=== PATIENT | female | born 1985 | race Caucasian/White ===

== ENCOUNTER 2025-01-01 05:52 | Day surgery (SDC) | payer BC, SELFPAY ==
--- NOTE | 2024-12-30 09:54 | PCM.HP.BLA ---
History and Physical Date of Admission: 01/01/25 HPI: The patient is a 39 year old female presenting for pre-operative visit. She is scheduled for hysteroscopy with endometrial ablationn for menorrhagia and dysmenorrhea, on 01/01/25. Procedure discussed along with risks, benefits and complications. Other alternatives discussed for management. Consent form signed? Yes. ? ? PAST MEDICAL HISTORY PAST MEDICAL HISTORYDiagnosisDate?Anemia??WITH 1ST ?Antiphospholipid antibody syndrome (HCC)??no official syndrome but mildly elevated levels?[id number]?anxiety/depression?Fibroadenosis of breast??Insertion of IUD108/02/08?mirena?Mental disorder??Placental abruption, antepartum (HCC)10/28/2013?Varicella without mention of [id number]?Chickenpox ? ? PAST SURGICAL HISTORY PAST SURGICAL HISTORYProcedureLateralityDate?BREAST BIOPSY?05/2005?FIBROADENOMA? DELIVERY ONLY?2015?stat for abruption?D&C (MISSED AB 1ST TRIMESTER)?2013?IUD INSERTION (DOCUMENT MANAGEMENT ANALYST DEPT)_*FL?06/01/09?mirena AND REMOVAL?LAPAROSCOPIC TUBAL LIGATION/RING/CLIP?03/22/16?tubal w/ filshie clips ? ? ? CURRENT MEDICATIONS Current Outpatient MedicationsMedicationSigDispenseRefill?Norethindrn A-E Estradiol-Iron (BLISOVI 24 FE) 1 mg-20 mcg (24)/75 mg (4)Take 1 tablet by mouth once daily.84 tablet4?COMPOUNDED PRESCRIPTIONWomen's one a day multivitamin???No current facility-administered medications for this visit. ? ? ALLERGIES: Patient has no known allergies. ? PERSONAL HISTORY: SOCIAL HISTORY Social History?Tobacco Use?Smoking status:Former??Current packs/day:0.00??Average packs/day:0.5 packs/day for 2.0 years (1.0 ttl pk-yrs)??Types:Cigarettes??Start date:05/28/2003??Quit date:05/28/2005??Years since quittin.5?Smokeless tobacco:NeverVaping Use?Vaping status:Never UsedSubstance Use Topics?Alcohol use:No?Drug use:No ? FAMILY HISTORY: FAMILY HISTORYExpand by Default FAMILY HISTORY ProblemRelationAge of Onset?AsthmaMother??Cervical CancerMother??HypertensionMother??OsteoporosisMother??PsychiatryMother?? DEPRESSION?StrokeMother??DementiaMother??ArthritisFather??PsychiatryFather?? DEPRESSION?AsthmaSister??ArthritisMaternal Grandmother??HypertensionMaternal Grandmother??StrokeMaternal Grandmother??ThyroidMaternal Grandmother??Colon CancerPaternal Grandmother??other (multiple mylomia)Paternal Grandmother??HypothyroidismPaternal Grandmother??Colon CancerPaternal Grandfather??HeartPaternal Grandfather?? [place]?HypertensionPaternal Grandfather??other (hypothyroidism)Daughter??AsthmaMaternal Aunt??Alzheimer's DiseaseOther?? MGGM ? ? REVIEW OF SYMPTOMS: GENERAL: denies fevers or chills ENDOCRINOLOGY: has not been on steroids Cardiology : denies palpitations or chest pain Respiratory: denies SOB or cough Hematology: denies history of prolonged bleeding or easy bruising or VTE Allergy: Denies history of personal or family history of allergy to anesthesia ? PHYSICAL EXAMINATION: ? VITALS: Blood pressure 114/62, pulse 74, height 170.2 cm (5' 7), weight 67.1 kg (148 lb), last menstrual period 08/24/2024, SpO2 99%. ? GENERAL: The patient is well nourished, well hydrated in no acute distress. , The patient is oriented to time, place, and person. NECK: Supple. No lynphadenopathy, normal thyroid, no thyromegaly. LUNGS: Clear to auscultation bilaterally. no wheezes, rhonchi or rales HEART: Regular rate and rhythm, Normal heart sounds, and No murmurs or gallops ? IMPRESSION: menorrhagia w/ irreg cycle and dysmenorrhea ? PLAN: The risks/benefits/alternatives and personal involved for the planned hysteroscopy with endometrial ablation were reviewed with the patient. Her questions were answered to her satisfaction and she desires to proceed. Consent was signed. I reviewed with her postop instructions and expectations. ? ? I have reviewed and updated past medical and surgical history, medications and allergies Marycruz Wild M.D. Assessment & Plan Assessment/Plan (1) Menorrhagia: QUALIFIERS: Menorrhagia type: with regular cycle Qualified Code(s): N92.0 - Excessive and frequent menstruation with regular cycle (2) Dysmenorrhea:
[2025-01-01] VITALS (9 sets, daily range): BP systolic 111–125; BP diastolic 68–85; PULSE 67–84; RESP 16; TEMP 36.2–36.6; O2SAT 99–100; BMI 23.4
--- OUTSIDE RECORDS SUMMARY | 2025-01-01 05:58 | XMS RPT_ITS | CCD ---
Author Organization [facility] Care Team Providers Care Global Technical Writer Name Role Phone [facility] Unavailable Unavaila ble KIKE, [facility] Unavailable Unavaila ble KIKE, [facility] Unavailable Unavaila ble Carol JENSEN, Sarmad Primary Care Provider [phone] Carol JENSEN, Sarmad Primary Care Provider Carol JENSEN, Sarmad Primary Care Provider Carol JENSEN, Sarmad Primary Care Provider Naomi Edwards PA-C Unavailable Older BEHAVIORAL SCIENCE CHAIR.Angela DAVILA Unavailable Zoey Orellana PA-C Unavailable [phone] SELF Referring Unavailable GANTA, SARMAD Primary Care Unavailable BACILIO MIRANDA Referring Unavailable GANTA, SARMAD Primary Care Unavailable BACILIO MIRANDA Referring Unavailable GANTA, SARMAD Primary Care Unavailable HEENA JEWELL Attending Unavailable GANTA, SARMAD Primary Care Unavailable BACILIO MIRANDA Attending Unavailable GANTA, SARMAD Primary Care Unavailable BACILIO MIRANDA Attending Unavailable ANGELA CHAU Attending Unavailable GANTA, SARMAD Primary Care Unavailable ANGELA CHAU Referring Unavailable GANTA, SARMAD Primary Care Unavailable GANTA, SARMAD Primary Care Unavailable HOLLI MIRANDACA Pam Attending Unavailable RUTH BACILIO L Referring Unavailable GANTA, SARMAD Primary Care Unavailable Ruth Bacilio Referring Unavailable Bacilio Miranda Attending Unavailable Ganta, Sarmad Primary Care Unavailable Medications Current Medications Medication Drug Class(es) Dates Sig (Normalized) Sig (Original) amoxicillin 875 mg / clavulanate 125 mg oral tablet (2 sources) Penicillin-class Antibacterial Start: 09-20-2024 End: 09-25-2024 take 1 tablet by mouth twice daily amoxicillin-clav ulanate potassium (AUGMENTIN) 875-125 mg per tablet Take 1 tablet by mouth two times a day for 5 days. 10 tablet 09/20/2024 09/25/2024 Active Start: 09-03-2023 End: 09-10-2023 take 1 tablet by mouth twice daily amoxicillin-clavulanate potassium (AUGMENTIN) 875-125 mg per tablet Indications: Fever, unspecified fever cause , Viral URI with cough Take 1 tablet by mouth two times a day for 7 days. 14 tablet 0 09/03/2023 09/10/2023 Active Comment on above: Take 1 tablet by nereida two times a day for 7 days. benzonatate 100 mg oral capsule (1 source) Non-narcotic Antitussive Start: 09-17-19 End: 09-27-19 take 2 capsules by mouth every eight hours as needed benzonatate (TESSALON PERLE) 100 mg capsule Take 2 capsules by mouth three times daily as needed for up to 10 days. 60 capsule 0 09/16/2021 09/26/2021 Active Comment on above: Take 2 capsules by [facility] three times daily as needed for up to 10 days. COMPOUNDED PRESCRIPTION (20 sources) Start: 07-15-19 18 COMPOUNDED PRESCRIPTION Women's one a day multivitamin 07/15/2017 Active Start: 07-15-2017 COMPOUNDED PRE SCRIPTION Women's one a day multivitamin 0 07/15/2017 Active Comment on above: Women's one a day mu ltivitamin Ethinyl Estradiol / Ferrous fumarate / Norethindrone (20 sources) Estrogen Start: take 1 tablet by mouth once daily Norethindrn A-E Estradiol-Iron (BLISOVI 24 FE) 1 mg-20 mcg (24)/75 mg (4) Take 1 tablet by mouth once daily. 84 tablet 4 09/10/2024 Active Start: 07-09-2024 End: 09-10-2024 take 1 tablet by mouth once daily Norethindrn A-E Estradiol-Iron (BLISOVI 24 FE) 1 mg-20 mcg (24)/75 mg (4) Take 1 tablet by mouth once daily. 84 tablet 2 07/09/2024 09/10/2024 Discontinued Start: 07-09-2024 take 1 tablet by nereida th once daily Norethindrn A-E Estradiol-Iron (BLISOVI 24 FE) 1 mg-20 mcg (24)/75 mg (4) Take 1 tablet by mouth once daily. 84 tablet 2 07/09/2024 Active Start: 04-08-2024 End: 07-09-2024 take 1 tablet by mouth once daily Norethindrn A-E Estradiol-Iron (BLISOVI 24 FE) 1 mg-20 mcg (24)/75 mg (4) Take 1 tablet by mouth once daily. 84 tablet 04/08/2024 07/09/2024 Discontinued Start: 04-08-2024 take 1 tablet by nereida th once daily Norethindrn A-E Estradiol-Iron (BLISOVI 24 FE) 1 mg-20 mcg (24)/75 mg (4) Take 1 tablet by mouth once daily. 84 tablet 04/08/2024 Active Start: 02-11-2023 End: 04-08-2024 take 1 tablet by mouth once daily Norethindrn A-E Estradiol-Iron (BLISOVI 24 FE) 1 mg-20 mcg (24)/75 mg (4) Take 1 tablet by mouth once daily. 84 tablet 4 02/11/2023 04/08/2024 Discontinued Start: 02-11-2023 take 1 tablet by nereida th once daily Norethindrn A-E Estradiol-Iron (BLISOVI 24 FE) 1 mg-20 mcg (24)/75 mg (4) Take 1 tablet by mouth once daily. 84 tablet 4 02/11/2023 Active Start: 09-19-2022 End: 02-11-2023 take 1 tablet by mouth once daily Norethindrn A-E Estradiol-Iron (BLISOVI 24 FE) 1 mg-20 mcg (24)/75 mg (4) Take 1 tablet by mouth once daily. 28 tablet 3 09/19/2022 02/11/2023 Discontinued Start: 09-19-2022 take 1 tablet by nereida th once daily Norethindrn A-E Estradiol-Iron (BLISOVI 24 FE) 1 mg-20 mcg (24)/75 mg (4) Take 1 tablet by mouth once daily. 28 tablet 3 09/19/2022 Active Start: 05-25-2022 End: 09-18-2022 take 1 tablet by mouth once daily Norethindrn A-E Estradiol-Iron (BLISOVI 24 FE) 1 mg-20 mcg (24)/75 mg (4) Take 1 tablet by mouth once daily. 28 tablet 1 05/25/2022 09/18/2022 Discontinued Start: 04-27-2022 take 1 tablet by nereida th once daily Norethindrn A-E Estradiol-Iron (BLISOVI 24 FE) 1 mg-20 mcg (24)/75 mg (4) Take 1 tablet by mouth once daily. 28 tablet 1 04/27/2022 Active Start: 02-08-2022 End: 04-26-2022 take 1 tablet by mouth once daily Norethindrn A-E Estradiol-Iron (BLISOVI 24 FE) 1 mg-20 mcg (24)/75 mg (4) Take 1 tablet by mouth once daily. 28 tablet 1 02/08/2022 04/26/2022 Discontinued Start: 02-08-2022 take 1 tablet by nereida th once daily Norethindrn A-E Estradiol-Iron (BLISOVI 24 FE) 1 mg-20 mcg (24)/75 mg (4) Take 1 tablet by mouth once daily. 28 tablet 1 02/08/2022 Active Start: 12-26-2021 End: 02-08-2022 take 1 tablet by mouth once daily Norethindrn A-E Estradiol-Iron (BLISOVI 24 FE) 1 mg-20 mcg (24)/75 mg (4) Take 1 tablet by mouth once daily. 28 tablet 1 12/26/2021 02/08/2022 Discontinued Start: 12-26-2021 take 1 tablet by nereida th once daily Norethindrn A-E Estradiol-Iron (BLISOVI 24 FE) 1 mg-20 mcg (24)/75 mg (4) Take 1 tablet by mouth once daily. 28 tablet 1 12/26/2021 Active Start: 12-30-2020 End: 12-23-2021 take 1 tablet by mouth once daily Norethindrn A-E Estradiol-Iron (BLISOVI 24 FE) 1 mg-20 mcg (24)/75 mg (4) Take 1 tablet by mouth once daily. 1 Package 11 12/30/2020 12/23/2021 Discontinued Start: 12-30-2020 take 1 tablet by nereida th once daily Norethindrn A-E Estradiol-Iron (BLISOVI 24 FE) 1 mg-20 mcg (24)/75 mg (4) Take 1 tablet by mouth once daily. 1 Package 11 12/30/2020 Active Comment on above: Take 1 tablet by nereida th once daily. predniSONE 20 mg oral tablet (3 sources) Start: 09-03-2023 End: 09-08-2023 take 2 tablets by mouth once daily predniSONE (DELTASONE) 20 mg tablet Indications: Fever, unspecified fever cause , Viral URI with cough Take 2 tablets by mouth once daily for 5 days. 10 tablet 0 09/03/2023 09/08/2023 Active Start: 09-16-2021 End: 09-20-2021 take 1 tablet by mouth once daily at mealtime predniSONE (DELTASONE) 20 mg tablet Indications: Post-viral cough syndrome Take 1 tablet by mouth once daily for 4 days. Take daily with food. 4 tablet 0 09/16/2021 09/20/2021 Active Start: 04-11-2021 End: 04-20-2021 predniSONE (DELTASONE) 10 mg tablet Take 4 tabs daily for 3 days, then 2 tabs daily for 3 days, then 1 tab daily for 3 days with food. 21 tablet 04/11/2021 04/20/2021 Comment on above: Take 1 tablet by nereida th once daily for 4 days. Take daily with food. Take 2 tablets by [facility] once daily for 5 days. Completed/Discontinued Medications Medication Drug Class(es) Dates Sig (Normalized) Sig (Original) PARoxetine hydrochloride 10 mg oral tablet (4 sources) Serotonin Reuptake Inhibitor Start: 04-04-2022 End: 02-11-2023 take 1 tablet by mouth once daily PARoxetine (PAXIL) 10 mg tablet Indications: Depression, unspecified depression type , Anxiety Take 1 tablet by mouth once daily. 30 tablet 5 04/04/2022 02/11/2023 Discontinued (Other) Comment on above: Take 1 tablet by nereida th once daily. Problems Active Problems Problem Classification Problem Date Documented Date Episodic/Chronic Anxiety disorders (1 source) Anxiety; Translations: [Anxiety disorder, unspecified] Chronic Coagulation and hemorrhagic disorders (20 sources) Platelet count below reference range; Translations: [Thrombocytopenia, unspecified] Onset: 06-21-2015 Resolved: 09-05-2015 06-19-2021 Chronic Contraceptive and procreative management (1 source) Oral contraception; Translations: [Encounter for surveillance of contraceptive pills] 02-11-2023 Episodic Fever of unknown origin (1 source) Fever; Translations: [Fever, unspecified] 09-03-2023 Episodic Immunizations and screening for infectious disease (8 sources) Patient encounter status; Translations: [Encounter for screening for human papillomavirus (HPV)] Episodic Menstrual disorders (4 sources) Excessive and frequent menstruation with irregular cycle; Translations: [Dysmenorrhea, unspecified] Onset: 11-13-2024 12-23-2024 Chronic Mood disorders (1 source) Depressive disorder; Translations: [Depression, unspecified depression type] Chronic Nutritional deficiencies (2 sources) Vitamin D deficiency; Translations: [Vitamin D deficiency, unspecified] Onset: 03-12-2024 03-12-2024 Chronic Other female genital disorders (4 sources) Abnormal uterine bleeding; Translations: [Abnormal uterine and vaginal bleeding, unspecified] 09-10-2024 Chronic Other female genital disorders (1 source) Abnormal uterine and vaginal bleeding, unspecified; Translations: [Abnormal uterine bleeding (AUB)] Onset: 10-15-2024 Chronic Other hematologic conditions (1 source) History of immune thrombocytopenia; Translations: [Personal history of diseases of the blood and blood-forming organs and certain disorders involving the immune mechanism] Episodic Other lower respiratory disease (2 sources) Cough; Translations: [Cough] Episodic Other lower respiratory disease (1 source) Postviral cough; Translations: [Post-viral cough syndrome] Episodic Other non-traumatic joint disorders (1 source) Pain of right wrist; Translations: [Pain in right wrist] 04-11-2021 Episodic Other nutritional; endocrine; and metabolic disorders (1 source) Weight gain; Translations: [Abnormal weight gain] 03-12-2024 Episodic Other nutritional; endocrine; and metabolic disorders (1 source) History of iron deficiency; Translations: [Personal history of other endocrine, nutritional and metabolic disease] 03-12-2024 Episodic Other upper respiratory infections (1 source) Bacterial sinusitis; Translations: [Chronic sinusitis, unspecified] 09-20-2024 Chronic Other upper respiratory infections (3 sources) Sore throat symptom; Translations: [Acute pharyngitis, unspecified] Episodic Residual codes; unclassified (1 source) Intolerant of cold; Translations: [Other general symptoms and signs] 03-12-2024 Episodic Viral infection (2 sources) Viral disease; Translations: [Viral infection, unspecified] Episodic Past or Other Problems Problem Classification Problem Date Documented Date Episodic/Chronic Cardiac and circulatory congenital anomalies (12 sources) Single umbilical artery; Translations: [Congenital absence and hypoplasia of umbilical artery] Onset: 10-11-2015 Resolved: 01-05-2016 01-05-2016 Chronic Deficiency and other anemia (20 sources) Anemia; Translations: [Anemia, unspecified] Onset: 07-18-2015 07-18-2015 Episodic Deficiency and other anemia (20 sources) Iron deficiency anemia; Translations: [Iron deficiency anemia, unspecified] Onset: 04-03-2016 04-03-2016 Episodic Hemorrhage during ; abruptio placenta; placenta previa (20 sources) Threatened miscarriage; Translations: [Threatened ] Onset: 09-17-2005 Resolved: 01-05-2016 01-02-2024 Episodic Malaise and fatigue (2 sources) Fatigue; Translations: [Other fatigue] Onset: 03-12-2024 03-12-2024 Episodic Nausea and vomiting (12 sources) Nausea and vomiting; Translations: [Nausea with vomiting, unspecified] Onset: 08-17-2013 Resolved: 01-15-2014 06-19-2021 Episodic Other complications of (12 sources) Anemia complicating , unspecified trimester; Translations: [Anemia of mother, antepartum condition or complication] Onset: 03-02-2006 Resolved: 05-01-2006 01-02-2024 Chronic Other complications of (20 sources) Rubella non-immune; Translations: [Supervision of other high risk pregnancies, unspecified trimester] Onset: 08-18-2013 Resolved: 01-05-2016 08-20-2014 Episodic Other complications of (12 sources) Thrombocytopenic disorder; Translations: [Other diseases of the blood and blood-forming organs and certain disorders involving the immune mechanism complicating , unspecified trimester] Onset: 08-19-2013 Resolved: 01-15-2014 06-19-2021 Episodic Other complications of (12 sources) High risk ; Translations: [Supervision of other high risk pregnancies, first trimester] Onset: 06-03-2015 Resolved: 01-05-2016 01-05-2016 Episodic Other complications of (12 sources) Vomiting of , unspecified; Translations: [Unspecified vomiting of , unspecified as to episode of care or not applicable] Onset: 06-03-2015 Resolved: 09-05-2015 09-05-2015 Episodic Other complications of (12 sources) A/N care: poor obstetric history; Translations: [Supervision of with other poor reproductive or obstetric history, unspecified trimester] Onset: 06-03-2015 Resolved: 01-05-2016 06-19-2021 Episodic Other complications of (12 sources) Benign gestational thrombocytopenia; Translations: [Other diseases of the blood and blood-forming organs and certain disorders involving the immune mechanism complicating , unspecified trimester] Onset: 02-16-2016 Resolved: 03-30-2016 03-30-2016 Episodic Other nutritional; endocrine; and metabolic disorders (1 source) Personal history of other endocrine, nutritional and metabolic disease; Translations: [History of iron deficiency] Onset: 03-12-2024 Episodic Other nutritional; endocrine; and metabolic disorders (1 source) Abnormal weight gain; Translations: [Weight gain] Onset: 03-12-2024 Episodic Other and delivery including normal (12 sources) Normal ; Translations: [Encounter for supervision of other normal , unspecified trimester] Onset: 10-21-2008 Resolved: 05-04-2009 05-04-2009 Episodic Other screening for suspected conditions (not mental disorders or infectious disease) (1 source) Encounter for screening mammogram for malignant neoplasm of breast; Translations: [Encounter for screening mammogram for breast cancer] Onset: 09-16-2024 Episodic Residual codes; unclassified (1 source) Other general symptoms and signs; Translations: [Cold intolerance] Onset: 03-12-2024 Episodic Screening and history of mental health and substance abuse codes (12 sources) H/O: depression; Translations: [Personal history of other mental and behavioral disorders] Onset: 08-17-2013 Resolved: 08-20-2014 06-19-2021 Episodic Unclassified (4 sources) Patient encounter status 09-10-2024 Results Test Name Value Interpretation Reference Range Facility [facility] 11-05-2024 CNOV Office Visit (OBGYWM ) NAOMI ELDER ([id number]) 1985 F Date Time Provider Department 11/05/24 10:10 AM HEENA JEWELL OBGYWM During your visit today, we recorded the following information about you: Blood pressure Weight 108/62 67.1 kg Heena Jewell MD 11/05/2024 10:30 AM Signed Naomi is a 39 year old who presents today for an endometrial biopsy for abnormal uterine bleeding. test: negative UNIVERSAL PROTOCOL / SAFETY CHECKLIST Procedure to be Performed: EMB Sign In: A Moment of CARE was completed. Appropriate PPE (Personal Protective Equipment) worn by all providers involved with the procedure. Special equipment not required. Patient/Surrogate Stated/Verified: Patient name, Date of , Relevant allergies, and The intended procedure Time Out: Relevant labs, photos, and/or imaging studies have been reviewed. Intended patient and procedure match the source document(s) (e.g. consent, HANDP, associated studies [imaging, pathology]) match the intended patient and procedure. Consent obtained and matches the intended procedure. Yes. Correct side/site is not applicable. Medications required for this procedure are verified. are not applicable. Fire risk assessed and is not applicable. Implants: are not applicable. Sign Out: Specimens are all correctly labeled and sent. All instruments, equipment, possible retained foreign bodies are accounted for. Yes. The post-procedure plan of care has been communicated to the patient or surrogate. PROCEDURE: EXTERNAL GENITALIA: Normal in appearance without lesions VAGINA: Normal in appearance without lesions BIOPSY: Speculum placed into the vagina with excellent visualization of the cervix. Cervix cleaned with betadine. Anterior lip of cervix grasped with single toothed tenaculum. Uterus sounded to 8 cm. Pipelle inserted into the uterus without difficulty and endometrial biopsy obtained. Specimen labeled and sent to pathology. Hemostasis achieved. Procedure Summary: Patient tolerated procedure well. ASSESSMENT: abnormal uterine bleeding PLAN: Specimens labeled and sent to Pathology. Will notify patient of results in 1-2 weeks. Post-procedure instructions reviewed and written material given to the patient. MD Yuni Juárez Tab[place], MA 11/05/2024 10:05 AM Signed YOUR RECOVERY After your biopsy you may have: Vaginal bleeding (less than a normal menstrual period) Mild cramping Do NOT put anything in the vagina for 1 week after your endometrial biopsy. This includes: tampons douches and refraining from having sexual intercourse If you have any discomfort, you may take an over the counter pain medication (motrin, advil, ibuprofen, tylenol, etc). If this does not relieve your discomfort, contact the office. It is okay to wear a sanitary pad until the discharge and spotting stops. RISKS Although problems seldom occur with endometrial biopsies, there can be some complications. You may feel faint during and shortly after the procedure as well as have some bleeding after the procedure. There is also a risk of infection after the procedure. These complications are rare and can be easily treated. You should contact you doctor is you have any of the following: Heavy bleeding (more than your normal period) Bleeding with clots Severe abdominal pain Fever (more than 100.4F) Foul smelling vaginal discharge RESULTS We will have the results of your biopsy in 1-2 weeks. If you do not hear the results of your biopsy after 2 weeks, please contact the office for the results. If you have any additional questions or concerns please do not hesitate to contact the office. Referring Provider: BACILIO MIRANDA [[id number]] Allergies As of Date: 11/05/2024 (No Known Allergies) Date Reviewed: 09/20/2024 Reviewed by: Mary Babin MA - Fully Assessed Primary Visit Diagnosis:Abnormal uterine bleeding (AUB) [N93.9] Order(s):UA DIP,URINE HCG (POC) [6197025] Order #: [id number]. #:[id number] [ZGC1510] Order #: [id number]. #:[id number] Prescriptions as of 11/05/2024 - Norethindrn A-E Estradiol-Iron (BLISOVI 24 FE) 1 mg-20 mcg (24)/75 mg (4) Take 1 tablet by mouth once daily. - COMPOUNDED PRESCRIPTION Women's one a day multivitamin Problem List As Of Date 11/05/2024 Noted Resolved THREATEN ABORT-ANTEPART [O20.0] 09/17/2005 05/01/2006 COMPLICATIONS ANEMIA [O99.019] 03/02/2006 05/01/2006 Supervision of Other Normal [Z34.80] 10/21/2008 05/04/2009 First trimester bleeding [O20.9] 08/17/2013 01/15/2014 History of depression [Z86.59] 08/17/2013 08/20/2014 Nausea AND vomiting [R11.2] 08/17/2013 01/15/2014 Rubella non-immune status, antepartum [O09.899,*08/18/2013 08/20/2014 Thrombocytopenia complicating (HCC) [*08/19/2013 01/16/20 (more content not included)... [facility] Pathology biopsy report Cullen (Tiss)on 11-05-2024 AP DISCLAIMER [facility] Comment on above: Order Comment: Speci men Type: TISSUE SPECIMENOrdering Facility: [facility] Address: [address] [place] [address] Result Comment: Wu lockett Developed Test (LDT) Disclaimer: Performance characteristics of immunohistochemical, immunofluorescent, and chromogenic in-situ hybridization tests have been determined by the performing laboratory within [facility] Medicine [facility] ([facility], [facility], [facility], [facility], [facility], [facility], or [facility]) in a manner consistent with CLIA requirements. One or more of these tests may not have been cleared or approved by the FDA. [facility] is regulated under CLIA as qualified to perform high-complexity testing. These tests are used for clinical purposes. These should not be regarded as investigational or for research. Positive and negative controls stain appropriately. Performed By: #### 6 6121-5 ####[facility] LABCLIA [id number] [place] [address] [place] CASE REPORT [facility] Comment on above: Order Comment: Speci men Type: TISSUE SPECIMENOrdering Facility: [facility] Address: [address] [place] [address] Result Comment: Surg [facility] Pathology Report Case: [id number] Authorizing Provider: Heena Jewell MD Collected: 11/05/2024 10:30 AM Ordering Location: OB/Gynecology Received: 11/05/2024 11:54 AM Pathologist: Vaishali Leslie MD Specimen: Endometrium, Biopsy Performed By: #### 6 6121-5 ####[facility] LABCLIA [id number] [place] [address] [place] CLINICAL HISTORY AUB Normal [facility] Comment on above: Order Comment: Speci men Type: TISSUE SPECIMENOrdering Facility: [facility] Address: [address] [place] [address] Performed By: #### 6 6121-5 ####[facility] LABCLIA [id number] [place] [id number] [place] FINAL DIAGNOSIS [facility] Comment on above: Order Comment: Speci men Type: TISSUE SPECIMENOrdering Facility: [facility] Address: [address] [place] [address] Result Comment: A. E ndometrium, Biopsy: - Inactive endometrium with stromal breakdown. - Fragments of benign endocervical glands at 1107 EDT Performed By: #### 6 6121-5 ####[facility] LABCLIA [id number] [address] [address] [place] FINAL PERFORMING LAB Normal [facility] Comment on above: Order Comment: Speci men Type: TISSUE SPECIMENOrdering Facility: [facility] Address: [address] [place] [address] Result Comment: Diag nostic interpretation performed at: [facility], [address] [place], [place] [id number] CLIA# [id number] Counter Sales Representative: Connor Gaxiola MD Performed By: #### 6 6121-5 ####[facility] LABCLIA [id number] [place] [address] [place] GROSS DESCRIPTION Normal [facility] Comment on above: Order Comment: Speci men Type: TISSUE SPECIMENOrdering Facility: [facility] Address: [address] [place] [address] Result Comment: A. E ndometrium, Biopsy Received in formalin are multiple brown-red, soft feathery segments of tissue admixed with mucinous material aggregating to 2.5 x 1.7 x 0.3 cm. Totally submitted in one cassette. DL November 05, 2024 7:09 PM Gross examination performed at [facility], [address] [place] [address] Performed By: #### 6 6121-5 ####[facility] [id number] [place] [address] [place] UA DIP,URINE HCG (POC)on Beta HCG ( test) Ql (U) Negative Negative [facility] Comment on above: Location:[facility], [facility] [place] [address] [place], [address] Tube Fitter (POCT) Internal QC [facility] Location:[facility], [address] [place], [address] [facility] [facility] POINT OF CARE [facility] CNOVon 09-20-2024 CNOV Office Visit (UCWSTR ) NAOMI ELDER ([id number]) 1985 F Date Time Provider Department 09/20/24 10:15 AM MALINDA GONZALEZ [facility] During your visit today, we recorded the following information about you: Temperature Pulse Respiration Blood pressure 98.6 degrees 126/minute 16/minute 132/80 Weight 71 kg Malinda Gonzalez PA 09/20/2024 10:19 AM Signed [facility] Subjective Naomi Elder is a 38 year old female. Patient presents with: Sinus Problem: sinus pressure, drainage, fever x 5 days HPI 38-year-old female presents for sinus congestion x 9 days, fever. Patient states she has had sinus congestion for about 9 days. She denies any cough. She does have some postnasal drainage. She states she started getting a fever about 3 to 4 days ago. Last fever was this morning of 101 ?F. She has been taking ibuprofen for symptoms. States she is unable to take decongestants because they make her heart race. She denies any vomiting or diarrhea. 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 MEDICATIONS Norethindrn A-E Estradiol-Iron (BLISOVI 24 FE) 1 mg-20 mcg (24)/75 mg (4) Take 1 tablet by mouth once daily. COMPOUNDED PRESCRIPTION Women's one a day multivitamin amoxicillin-clavulanat e potassium (AUGMENTIN) 875-125 mg per tablet Take 1 tablet by mouth two times a day for 5 days. FAMILY HISTORY Problem Relation Age of Onset Asthma Mother Cervical Cancer Mother Hypertension Mother Osteoporosis Mother Psychiatry Mother DEPRESSION Stroke Mother Dementia Mother Arthritis Father Psychiatry Father DEPRESSION Asthma Sister Arthritis Maternal Grandmother Hypertension Maternal Grandmother Stroke Maternal Grandmother Thyroid Maternal Grandmother Colon Cancer Paternal Grandmother other (multiple mylomia) Paternal Grandmother Hypothyroidism Paternal Grandmother Colon Cancer Paternal Grandfather Heart Paternal Grandfather IA Hypertension Paternal Grandfather other (hypothyroidism) Daughter Asthma Maternal Aunt Alzheimer's Disease Other MGGM Social History Tobacco Use Smoking status: Former Current packs/day: 0.00 Average packs/day: 0.5 packs/day for 2.0 years (1.0 ttl pk-yrs) Types: Cigarettes Start date: 05/28/2003 Quit date: 05/28/2005 Years since quittin.3 Smokeless tobacco: Never Vaping Use Vaping status: Never Used Substance Use Topics Alcohol use: No Drug use: No Review of Systems Constitutional: Positive for chills and fever. HENT: Positive for congestion, ear pain, sinus pressure and sinus pain. Negative for sore throat. Respiratory: Negative for cough and shortness of breath. Cardiovascular: Negative for chest pain. Gastrointestinal: Negative for diarrhea and vomiting. Objective BP 132/80 Pulse (!) 126 Temp 37 ?C (98.6 ?F) Resp 16 Wt 71 kg (156 lb 8.4 oz) LMP 08/24/2024 (Approximate) SpO2 98% BMI 24.52 kg/m? Physical Exam Vitals and nursing note reviewed. Constitutional: General: She is not in acute distress. Appearance: Normal appearance. She is not toxic-appearing. HENT: Right Ear: Tympanic membrane and ear canal normal. Left Ear: Tympanic membrane and ear canal normal. Nose: Mucosal edema and congestion present. Right Sinus: Maxillary sinus tenderness and frontal sinus tenderness present. Left Sinus: Maxillary sinus tenderness and frontal sinus tenderness present. Mouth/Throat: Mouth: Mucous membranes are moist. Eyes: Conjunctiva/sclera: Conjunctivae normal. Cardiovascular: Rate and Rhythm: Normal rate and regular rhythm. Pulmonary: Effort: Pulmonary effort is normal. Breath sounds: Normal breath sounds. No wheezing, rhonchi or rales. Skin: General: Skin is warm and dry. Neurological: Mental Status: She is alert. {ASSESSMENT/PLAN: 1. Bacterial sinusitis - ICD9: 473.9, 041.9, ICD10: J32.9, B96.89 - Will begin treatment with Augmentin 875 mg PO BID for 5 days - Supportive care with plenty of fluids, rest, and analgesia prn. Diagnosis and treatment plan were discussed and questions were answered to the patient's satisfaction. Pt acknowledged understanding of concepts and follow up mayank (more content not included)... [facility] DBT Breast - bilateral chiquita concepcion 09-16-2024 IMPRESSION: There is no mammographic evidence of malignancy. Routine screening mammogram is recommended. Annual mammogram will be due in 1 year. BI-RADS Category 2: Benign RISK: Based on the Tyrer-Cuzick (TC) risk assessment model, this patient has a 8.6% lifetime risk of developing breast cancer, meaning they are at average risk for developing breast cancer. However, this is only an estimate based on available history provided on the patient's questionnaire. We encourage all patients to talk with their providers about these results, further recommendations for managing breast health, and appropriate supplemental screening options if the patient has dense breast tissue. Interpreting Radiologist: Xi Arellano M.D. Resident/Fellow: Kev Landin M.D. Electronically signed on: 09/16/2024 Pharmacy Coordinator: DANILO Transcribe Date/Time: Sep 16 2024 7:24A Dictated by: KEV LANDIN MD This examination was interpreted and the report reviewed and electronically signed by: XI ARELLANO MD on Sep 16 2024 9:15AM [facility] DIVISION OF RADIOLOGY * * *Final Report* * * DATE OF EXAM: Sep 16 2024 7:33AM [facility] 0582 - EMMANUEL SCREENING W ARGELIA / PROCEDURE REASON: multiple diagnoses * * * * Physician Interpretation * * * * RESULT: [place] [address] #[id number] - [facility] SCREENING W ARGELIA HISTORY: 38 year-old patient seen for screening. Patient is asymptomatic in both breasts. Patient states no personal history of breast cancer. The patient has a family history of breast cancer. COMPARISON STUDIES: This is a baseline study. MAMMOGRAM TECHNIQUE: The study was acquired using full field digital technology and interpreted from soft copy. Digital Breast Tomosynthesis (DBT) images were obtained and used to assist in the interpretation of this examination. MAMMOGRAM FINDINGS: The breasts are heterogeneously dense, which may obscure small masses. There are post-operative changes in the right breast. No suspicious masses, calcifications or other abnormalities are seen in either breast. DIVISION OF RADIOLOGY Provider, [facility] - 09/16/2024 * * *Final Report* * * DATE OF EXAM: Sep 16 2024 7:33AM [facility] 0582 - [facility] SCREENING W ARGELIA / PROCEDURE REASON: multiple diagnoses * * * * Physician Interpretation * * * * RESULT: [place] [address] [place] [address] #[id number] - EMMANUEL SCREENING W ARGELIA HISTORY: 38 year-old patient seen for screening. Patient is asymptomatic in both breasts. Patient states no personal history of breast cancer. The patient has a family history of breast cancer. COMPARISON STUDIES: This is a baseline study. MAMMOGRAM TECHNIQUE: The study was acquired using full field digital technology and interpreted from soft copy. Digital Breast Tomosynthesis (DBT) images were obtained and used to assist in the interpretation of this examination. MAMMOGRAM FINDINGS: The breasts are heterogeneously dense, which may obscure small masses. There are post-operative changes in the right breast. No suspicious masses, calcifications or other abnormalities are seen in either breast. IMPRESSION IMPRESSION: There is no mammographic evidence of malignancy. Routine screening mammogram is recommended. Annual mammogram will be due in 1 year. BI-RADS Category 2: Benign RISK: Based on the Tyrer-Cuzick (TC) risk assessment model, this patient has a 8.6% lifetime risk of developing breast cancer, meaning they are at average risk for developing breast cancer. However, this is only an estimate based on available history provided on the patient's questionnaire. We encourage all patients to talk with their providers about these results, further recommendations for managing breast health, and appropriate supplemental screening options if the patient has dense breast tissue. Interpreting Radiologist: Xi Arellano M.D. Resident/Fellow: Kev Landin M.D. Electronically signed on: 09/16/2024 Pharmacy Coordinator: DANILO Transcribe Date/Time: Sep 16 2024 7:24A Dictated by: KEV LANDIN MD This examination was interpreted and the report reviewed and electronically signed by: XI ARELLANO MD on Sep 16 2024 9:15AM EST [facility] Radiology Study observation (narrative) [facility] DBT Breast - bilateral scree ningOrdered By: [facility] Provider on 09-16-2024 [facility] EMMANUEL SCREENING W TOMOon 09-16 EMMANUEL SCREENING W ARGELIA * * *Final Report* * * DATE OF EXAM: Sep 16 2024 7:33AM [facility] 0582 - EMMAUNEL SCREENING W ARGELIA / PROCEDURE REASON: multiple diagnoses * * * * Physician Interpretation * * * * RESULT: [facility] [address] [place] [address] #[id number] - EMMANUEL SCREENING W ARGELIA HISTORY: 38 year-old patient seen for screening. Patient is asymptomatic in both breasts. Patient states no personal history of breast cancer. The patient has a family history of breast cancer. COMPARISON STUDIES: This is a baseline study. MAMMOGRAM TECHNIQUE: The study was acquired using full field digital technology and interpreted from soft copy. Digital Breast Tomosynthesis (DBT) images were obtained and used to assist in the interpretation of this examination. MAMMOGRAM FINDINGS: The breasts are heterogeneously dense, which may obscure small masses. There are post-operative changes in the right breast. No suspicious masses, calcifications or other abnormalities are seen in either breast. IMPRESSION: There is no mammographic evidence of malignancy. Routine screening mammogram is recommended. Annual mammogram will be due in 1 year. BI-RADS Category 2: Benign RISK: Based on the Tyrer-Cuzick (TC) risk assessment model, this patient has a 8.6% lifetime risk of developing breast cancer, meaning they are at average risk for developing breast cancer. However, this is only an estimate based on available history provided on the patient's questionnaire. We encourage all patients to talk with their providers about these results, further recommendations for managing breast health, and appropriate supplemental screening options if the patient has dense breast tissue. Interpreting Radiologist: Xi Arellano M.D. Resident/Fellow: Kev Landin M.D. Electronically signed on: 09/16/2024 Pharmacy Coordinator: DANILO Transcribe Date/Time: Sep 16 2024 7:24A Dictated by: KEV LANDIN MD This examination was interpreted and the report reviewed and electronically signed by: XI ARELLANO MD on Sep 16 2024 9:15AM EST [id number] [facility] CNOVon 09-10-2024 CNOV Office Visit (OBGYWM ) NAOMI ELDER ([id number]) 1985 F Date Time Provider Department 09/10/24 9:00 AM BACILIO MIRANDA OBGYWM During your visit today, we recorded the following information about you: Blood pressure Weight Height Last Period 110 69.9 kg 1.702 m 08/24/24 Bacilio Miranda MD 09/10/2024 9:33 AM Signed Naomi is a 38 year old who presents for an annual gynecologic exam without complaints. Would like to consider ablation so she can get off hormones. Has had tubal and completed child bearing and on pills to help control heavy menses. Doing well on them for now but would like to consider ablation Still get period: Yes Bleeding amount bothersome: No Bleeding between periods: No Period symptoms: Breast tenderness; Mood change Time with current partner: 20 Number of lifetime partners: 1 control frequency: Never HPV vaccine: No; HPV:negative Last pap smear: 2021 History of abnormal pap: No, all prior PAP smears have been normal Bothersome pelvic pain: No Patient concerns for STD exposure: No. 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 Contraception: Tubal Ligation Menstrual Tracking History Flowsheet RowOffice Visit from 09/10/2024 in OB/GynecologyPeriod Cycle (Days) 45 Period Duration (Days) 3 Menstrual Flow Light PAST MEDICAL HISTORY Diagnosis Date Anemia WITH 1ST Antiphospholipid antibody syndrome (HCC) no official syndrome but mildly elevated levels anxiety 0575-4228 anxiety/depression Fibroadenosis of breast Insertion of IUD 06/01/09 mirena Mental disorder Placental abruption, antepartum 10/28/2013 Varicella without mention of complication 8y/o Chickenpox PAST SURGICAL HISTORY Procedure Laterality Date BREAST BIOPSY 05/2005 FIBROADENOMA DELIVERY ONLY 2015 stat for abruption DANDC (MISSED AB 1ST TRIMESTER) 2013 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 06/01/09 mirena AND REMOVAL LAPAROSCOPIC TUBAL LIGATION/RING/CLIP 03/22/16 tubal w/ filshie clips FAMILY HISTORY Problem Relation Asthma Mother Cervical Cancer Mother Hypertension Mother Osteoporosis Mother Psychiatry Mother DEPRESSION Stroke Mother Dementia Mother Arthritis Father Psychiatry Father DEPRESSION Asthma Sister Arthritis Maternal Grandmother Hypertension Maternal Grandmother Stroke Maternal Grandmother Thyroid Maternal Grandmother Colon Cancer Paternal Grandmother other (multiple mylomia) Paternal Grandmother Hypothyroidism Paternal Grandmother Colon Cancer Paternal Grandfather Heart Paternal Grandfather IA Hypertension Paternal Grandfather other (hypothyroidism) Daughter Asthma Maternal Aunt Alzheimer's Disease Other MGGM SOCIAL HISTORY Social History Tobacco Use Smoking status: Former Current packs/day: 0.00 Average packs/day: 0.5 packs/day for 2.0 years (1.0 ttl pk-yrs) Types: Cigarettes Start date: 05/28/2003 Quit date: 05/28/2005 Years since quittin.3 Smokeless tobacco: Never Vaping Use Vaping status: Never Used Substance Use Topics Alcohol use: No Drug use: No REVIEW OF SYSTEMS Abdomen: No abdominal pain, nausea, vomiting, diarrhea, or constipation. No bloating, early satiety, indigestion, or increased flatulence. Bladder: No dysuria, gross hematuria, urinary frequency, urinary urgency, or incontinence. Breast: No breast lumps, nipple d/c, overlying skin changes, redness or skin retraction. Allergies and current medication updated:Yes SENSITIVE EXAM: The sensitive examination was discussed with the Patient or Patient's Authorized Warehouse Logistics Coordinator. As applicable, any other physician, advance practice provider, medical student, or other health professional student that will be observing or involved in the sensitive examination for educational or training purposes was discussed with the Patient or Authorized Warehouse Logistics Coordinator. The Patient or Authorized Warehouse Logistics Coordinator has agreed to proceed with the sensitive examination. (Sensitive examination includes inspection and/or palpation of the breasts, pelvis, prostate and anorectal regions). EXAM: BP 110/66 Ht 5' 7 (1.70m) Wt 154 lb (69.9kg) LMP 08/24/2024 BMI 24.11 kg/(m2). GENERAL: pleasant, female in no apparent distress HEENT: Normocephalic, atraumatic, mucus membranes moist, and no lesions NECK: Supple, full range of motion, no adenopathy, and thyroid normal DERMATOLOGY: Normal, without lesions, non-icteric, and non-hirsute BREAST: soft, non-tender, symmet (more content not included)... [facility] HIGH RISK HUMAN PAPILLOMA HANNY (HPV), PCR FOR DETECTION AND GENOTYPINGon 09-10-2024 HPV 16 Ag Ql (Unsp spec) Not detected Normal Not detected [facility] Comment on above: Order Comment: Speci men Type: FLUID SPECIMENOrdering Facility: [facility] Address: [address] [place] [address] Performed By: #### H PVHRT ####[facility] LABIA [id number] [address] [place] HPV 18 Ag Ql (Unsp spec) Not detected Normal Not detected [facility] Comment on above: Order Comment: Speci men Type: FLUID SPECIMENOrdering Facility: [facility] Address: [address] [place] [address] Performed By: #### H PVHRT ####[facility] LABIA [id number] [address] [place] HPV 31+33+35+39+45+51+52+ 56+58+59+66+68 DNA MELINA+probe Ql (Cvx) Not detected Normal Not detected [facility] Comment on above: Order Comment: Speci men Type: FLUID SPECIMENOrdering Facility: [facility] Address: [address] [place] [address] Result Comment: High Risk HPV Other Type includes HPV types 31, 33, 35, 39, 45, 51, 52, 56, 58, 59, 66 and 68. Performed By: #### H PVHRT ####[facility] LABIA [id number] [place] [address] [place] PAP TESTon 09-10-2024 ADEQUACY [facility] Comment on above: Order Comment: Speci men Type: FLUID SPECIMEN [facility] Address: [address] [place] [address] Result Comment: Sati sfactory for interpretation. Transformation zone present Performed By: #### L [id number] #### [facility] CLIA [id number] [address] [place] [address] [place] [facility] LAB CLIA [id number] [address] [place] [address] [place] CASE REPORT [facility] Comment on above: Order Comment: Speci men Type: FLUID SPECIMEN [facility] Address: [address] [place] [address] Result Comment: Gyne cologic Cytology Report Case: [id number] Authorizing Provider: Bacilio Miranda MD Collected: 09/10/2024 10:13 AM Ordering Location: OB/Gynecology Received: 09/10/2024 12:21 PM First Screen: [place], [place], [place], ASCP Specimen: Pap Test, ThinPrep, Cervix Performed By: #### L [id number] #### [facility] CLIA [id number] [address] [place] [address] [place] [facility] CLIA [id number] [address] [place] [address] [place] CLINICAL HISTORY, CYTOLOGY, GRINDER MILL OPERATOR Routine Exam [facility] Comment on above: Order Comment: Speci men Type: FLUID SPECIMEN [facility] Address: [address] [place] [address] Performed By: #### L [id number] #### [facility] CLIA [id number] [address] [place] [address] [place] [facility] CLIA [id number] [address] [place] [address] [place] FINAL PERFORMING LAB [facility] Comment on above: Order Comment: Speci men Type: FLUID SPECIMEN [facility] Address: [address] [place] [id number] Result Comment: Tech nical component, rating officer screening performed at [facility], [address] [facility], [place] [id number] CLIA# [id number] Diagnostic interpretation performed at [facility], [address] [facility], [place] [id number] CLIA# [id number] Counter Sales Representative: Judy Gibbons M.D. Performed By: #### L [id number] #### [facility] CLIA [id number] [address] [place] [address] [place] [facility] CLIA [id number] [address] [place] [address] [place] INTERPRETATION, CYTOLOGY, GRINDER MILL OPERATOR [facility] Comment on above: Order Comment: Speci men Type: FLUID SPECIMEN [facility] Address: [address] [place] [address] Result Comment: Nega tive for intraepithelial lesion or malignancy. at 1511 EDT Performed By: #### L [id number] #### [facility] CLIA [id number] [address] [place] [address] [place] [facility] CLIA [id number] [address] [place] [address] [place] LMP 08/24/2024 [facility] Comment on above: Order Comment: Speci men Type: FLUID SPECIMEN [facility] Address: [address] [place], [place] [id number] Performed By: #### L [id number] #### [facility] CLIA [id number] [address] [place] [address] [place] [facility] CLIA [id number] [address] [place], [place] [id number] [place] PAP DISCLAIMER COMMENT The Pap Smear is a screening test for cervical cancer. False negative results occur with all screening tests, emphasizing the need for rescreening at recommended intervals, and clinical correlation. [facility] Comment on above: Order Comment: Speci men Type: FLUID SPECIMEN [facility] Address: [address] [place] [address] Performed By: #### L [id number] #### [facility] CLIA [id number] [address] [place] [address] LAB CLIA [id number] [address] [place] [address] [place] PAP BLADE BONER COMMENT This specimen has be en analyzed by the ThinPrep Imaging System, an automated imaging and review system, which assists the laboratory in evaluating cells on ThinPrep Pap tests. Following automated imaging, selected cervantes from every slide are reviewed by a rating officer. [facility] Comment on above: Order Comment: Speci men Type: FLUID SPECIMEN [facility] Address: [address] [place] [address] Performed By: #### L [id number] #### [facility] CLIA [id number] [address] [place] [address] LAB CLIA [id number] [address] [place] [address] 25(OH)D3 [facility] 2023 25-hydroxyvitamin D3 [Mass/Vol] 20.0 ng/mL Low 31.0-80.0 [facility] Comment on above: Order Comment: Speci men Type: BLOOD SPECIMENOrdering Facility: [facility] Address: [address] [place] [address] Result Comment: Clas sification of 25 [place] Vitamin D status: Deficiency/Insufficiency: < or = 30 ng/ml. Sufficiency/Optimal Levels: 31-80 ng/mL Toxicity: > 100 ng/mL. Test performed by chemiluminescent immunoassay. Performed By: #### 1 989-3 ####[facility] LABCLIA [id number] [place] [address] [place] CBC W Auto Differential pane l (Bld)on 03-12-2024 Basophils (Bld) [#/Vol] 0.05 10*3/uL Normal <0.11 [facility] Comment on above: Order Comment: Speci men Type: BLOOD SPECIMENOrdering Facility: [facility] Address: [address] [place] [address] Performed By: #### 5 7021-8 ####[facility] LABCLIA [id number] [place] [address] [place] Basophils/100 WBC (Bld) 1.0 % [facility] Comment on above: Order Comment: Speci men Type: BLOOD SPECIMENOrdering Facility: [facility] Address: [address] [place] [address] Performed By: #### 5 7021-8 ####[facility] LABCLIA [id number] [place] [address] [place] Differential cell count method Nom (Bld) Auto [facility] Comment on above: Order Comment: Speci men Type: BLOOD SPECIMENOrdering Facility: [facility] Address: [address] [place] [address] Performed By: #### 5 7021-8 ####[facility] LABCLIA [id number] [place] [address] [place] Eosinophils (Bld) [#/Vol] 10*3/uL Normal <0.46 [facility] Comment on above: Order Comment: Speci men Type: BLOOD SPECIMENOrdering Facility: [facility] Address: [address] [place] [address] Performed By: #### 5 7021-8 ####[facility] LABCLIA [id number] [place], [place] [address] [place] Eosinophils/100 WBC (Bld) 0.2 % Normal [facility] Comment on above: Order Comment: Speci men Type: BLOOD SPECIMENOrdering Facility: [facility] Address: [address] [place] [address] Performed By: #### 5 7021-8 ####[facility] LABCLIA [id number] [place] [address] [place] Erythrocyte distribution width (RBC) [Ratio] 13.0 % Normal 11.5-15.0 [facility] Comment on above: Order Comment: Speci men Type: BLOOD SPECIMENOrdering Facility: [facility] Address: [address] [place] [address] Performed By: #### 5 7021-8 ####[facility] LABCLIA [id number] [place] [address] [place] Hematocrit (Bld) [Volume fraction] 43.3 % Normal 36.0-46.0 [facility] Comment on above: Order Comment: Speci men Type: BLOOD SPECIMENOrdering Facility: [facility] Address: [address] [place] [address] Performed By: #### 5 7021-8 ####[facility] LABCLIA [id number] [place] [address] [place] Hemoglobin (Bld) [Mass/Vol] 13.8 g/dL Normal 11.5-15.5 [facility] Comment on above: Order Comment: Speci men Type: BLOOD SPECIMENOrdering Facility: [facility] Address: [address] [place] [address] Performed By: #### 5 7021-8 ####[facility] LABCLIA [id number] [place] [address] [place] Immature granulocytes (Bld) [#/Vol] 10*3/uL Normal <0.10 [facility] Comment on above: Order Comment: Speci men Type: BLOOD SPECIMENOrdering Facility: [facility] Address: [address] [place] [address] Performed By: #### 5 7021-8 ####[facility] LABCLIA [id number] [place] [address] [place] Immature granulocytes/100 WBC (Bld) 0.2 % Normal [facility] Comment on above: Order Comment: Speci men Type: BLOOD SPECIMENOrdering Facility: [facility] Address: [address] [place] [address] Performed By: #### 5 7021-8 ####[facility] LABIA [id number] [place] [address] [place] Lymphocytes (Bld) [#/Vol] 1.43 10*3/uL Normal 1.00-4.00 [facility] Comment on above: Order Comment: Speci men Type: BLOOD SPECIMENOrdering Facility: [facility] Address: [address] [place] [address] Performed By: #### 5 7021-8 ####[facility] LABIA [id number] [place] [address] [place] Lymphocytes/100 WBC (Bld) 29.1 % Normal [facility] Comment on above: Order Comment: Speci men Type: BLOOD SPECIMENOrdering Facility: [facility] Address: [address] [place] [address] Performed By: #### 5 7021-8 ####[facility] LABIA [id number] [place] [address] [place] MCH (RBC) [Entitic mass] 27.1 pg Normal 26.0-34.0 [facility] Comment on above: Order Comment: Speci men Type: BLOOD SPECIMENOrdering Facility: [facility] Address: [address] [place] [address] Performed By: #### 5 7021-8 ####[facility] LABIA [id number] [place] [address] [place] MCHC (RBC) [Mass/Vol] 31.9 g/dL Normal 30.5-36.0 [facility] Comment on above: Order Comment: Speci men Type: BLOOD SPECIMENOrdering Facility: [facility] Address: [address] [place] [address] Performed By: #### 5 7021-8 ####[facility] LABIA [id number] [place] [address] [place] MCV (RBC) [Entitic vol] 85.1 fL Normal 80.0-100.0 [facility] Comment on above: Order Comment: Speci men Type: BLOOD SPECIMENOrdering Facility: [facility] Address: [address] [place] [address] Performed By: #### 5 7021-8 ####[facility] LABIA [id number] [place] [address] [place] Monocytes (Bld) [#/Vol] 0.36 10*3/uL Normal <0.87 [facility] Comment on above: Order Comment: Speci men Type: BLOOD SPECIMENOrdering Facility: [facility] Address: [address] [place] [address] Performed By: #### 5 7021-8 ####[facility] LABIA [id number] [place] [address] [place] Monocytes/100 WBC (Bld) 7.3 % Normal [facility] Comment on above: Order Comment: Speci men Type: BLOOD SPECIMENOrdering Facility: [facility] Address: [address] [place] [address] Performed By: #### 5 7021-8 ####[facility] LABIA [id number] [place] [address] [place] Neutrophils (Bld) [#/Vol] 3.06 10*3/uL Normal 1.45-7.50 [facility] Comment on above: Order Comment: Speci men Type: BLOOD SPECIMENOrdering Facility: [facility] Address: [address] [place] [address] Performed By: #### 5 7021-8 ####[facility] LABCLIA [id number] [place] [address] [place] Neutrophils/100 WBC (Bld) 62.2 % Normal [facility] Comment on above: Order Comment: Speci men Type: BLOOD SPECIMENOrdering Facility: [facility] Address: [address] [place] [address] Performed By: #### 5 7021-8 ####[facility] LABCLIA [id number] [place] [address] [place] Nucleated RBC (Bld) [#/Vol] 10*3/uL Normal <0.01 [facility] Comment on above: Order Comment: Speci men Type: BLOOD SPECIMENOrdering Facility: [facility] Address: [address] [place] [address] Performed By: #### 5 7021-8 ####[facility] LABCLIA [id number] [place] [address] [place] Nucleated RBC/100 WBC (Bld) [Ratio] 0.0 /100 WBC Normal [facility] Comment on above: Order Comment: Speci men Type: BLOOD SPECIMENOrdering Facility: [facility] Address: [address] [place] [address] Performed By: #### 5 7021-8 ####[facility] LABCLIA [id number] [place] [address] [place] Platelet mean volume (Bld) [Entitic vol] 12.1 fL Normal 9.0-12.7 [facility] Comment on above: Order Comment: Speci men Type: BLOOD SPECIMENOrdering Facility: [facility] Address: [address] [place] [address] Performed By: #### 5 7021-8 ####[facility] LABCLIA [id number] [place] [address] [place] Platelets (Bld) [#/Vol] 181 10*3/uL Normal 150-400 [facility] Comment on above: Order Comment: Speci men Type: BLOOD SPECIMENOrdering Facility: [facility] Address: [address] [place] [address] Performed By: #### 5 7021-8 ####[facility] LABCLIA [id number] [place] [address] [place] RBC (Bld) [#/Vol] 5.09 10*6/uL Normal 3.90-5.20 [facility] Comment on above: Order Comment: Speci men Type: BLOOD SPECIMENOrdering Facility: [facility] Address: [address] [place] [address] Performed By: #### 5 7021-8 ####[facility] LABCLIA [id number] [place] [address] [place] WBC (Bld) [#/Vol] 4.92 10*3/uL Normal 3.70-11.00 [facility] Comment on above: Order Comment: Speci men Type: BLOOD SPECIMENOrdering Facility: [facility] Address: [address] [place] [address] Performed By: #### 5 7021-8 ####[facility] LABCLIA [id number] [place] [address] [place] CNOVon 03-12-2024 CNOV Office Visit (INTMWS ) NAOMI ELDER ([id number]) 1985 F Date Time Provider Department 03/12/24 8:20 AM ANGELA CHAU During your visit today, we recorded the following information about you: Pulse Respiration Blood pressure Weight 88/minute 16/minute 118/72 69.4 kg Angela Chau APRN.[place] 03/12/2024 9:02 AM Signed CC: Patient presents with: Physical: Annual Physical Immunizations: Flu vaccination HPI Naomi Elder is a 38 year old female who presents today for annual physical exam. Exercise: walks 6-8 miles a day 5 days a week for work. Diet: Watches diet for salt (salty snacks, added salt, processed frozen/canned foods), sugary/sweet snacks, unhealthy fats: Yes Caffeine: none Water intake: 100 ounces or more daily. Concerned with ongoing fatigue, cold intolerance, and gaining weight without lifestyle change. Large family history of thyroid issues. Has had her issues for years and never had evaluated until a friend asked her why since she was always so tired and cold. Does snore but not all the time. Does not wake up gasping for breath or witnessed apnea. Denies recurrent infections, changes in hair/nails, cough, wheezing, or shortness of breath. REVIEW OF SYSTEMS General: no fevers, no chills, no night sweats, no recurrent infections, no change in appetite, no change in energy, and no significant changes in weight Respiratory: no cough, no wheezing, no shortness of breath, no hemoptysis Cardiovascular: no chest pain, no chest pressure, no change in chronic palpitations, and no swelling GI: No nausea, vomiting, or diarrhea : No history of dysuria, frequency or incontinence Psych: phq2 is 0 and gad2 is 1 Endocrine: no polyuria, no polyphagia, and no polydipsia Neurologic: No change in chronic headaches, weakness, numbness,vertigo, dizziness, memory loss, syncope. PAST MEDICAL HISTORY Diagnosis Date Anemia WITH 1ST Antiphospholipid antibody syndrome (HCC) no official syndrome but mildly elevated levels anxiety 3215-1777 anxiety/depression Fibroadenosis of breast Insertion of IUD 06/01/09 mirena Mental disorder Placental abruption, antepartum 10/28/2013 Varicella without mention of complication 8y/o Chickenpox PAST SURGICAL HISTORY Procedure Laterality Date BREAST BIOPSY 05/2005 FIBROADENOMA DELIVERY ONLY 2016 stat for abruption DANDC (MISSED AB 1ST TRIMESTER) 2013 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 06/01/09 mirena AND REMOVAL LAPAROSCOPIC TUBAL LIGATION/RING/CLIP 03/22/16 tubal w/ filshie clips ALLERGIES Patient has no known allergies. MEDICATIONS Norethindrn A-E Estradiol-Iron (BLISOVI 24 FE) 1 mg-20 mcg (24)/75 mg (4) Take 1 tablet by mouth once daily. COMPOUNDED PRESCRIPTION Women's one a day multivitamin FAMILY HISTORY Problem Relation Age of Onset Asthma Mother Cervical Cancer Mother Hypertension Mother Osteoporosis Mother Psychiatry Mother DEPRESSION Stroke Mother Dementia Mother Arthritis Father Psychiatry Father DEPRESSION Asthma Sister Arthritis Maternal Grandmother Hypertension Maternal Grandmother Stroke Maternal Grandmother Thyroid Maternal Grandmother Colon Cancer Paternal Grandmother other (multiple mylomia) Paternal Grandmother Hypothyroidism Paternal Grandmother Colon Cancer Paternal Grandfather Heart Paternal Grandfather [place] Hypertension Paternal Grandfather other (hypothyroidism) Daughter Asthma Maternal Aunt Alzheimer's Disease Other MGGM Social History Tobacco Use Smoking status: Former Current packs/day: 0.00 Average packs/day: 0.5 packs/day for 2.0 years (1.0 ttl pk-yrs) Types: Cigarettes Start date: 05/28/2003 Quit date: 05/28/2005 Years since quittin.8 Smokeless tobacco: Never Vaping Use Vaping status: Never Used Substance Use Topics Alcohol use: No Drug use: No PHYSICAL EXAM BP 118/72 Pulse 88 Resp 16 Wt 69.4 kg (153 lb) LMP 02/06/2023 SpO2 98% BMI 23.96 kg/m? General Appearance: well appearing, in no acute distress, alert Pysch: mood and affect broad and appropriate Skin: Skin color, texture, turgor normal for age; Eyes: conjunctiva pink and moist, no icterus, sclera white, non-injected Neck: Thyroid normal size and symmetric without palpable nodules, Neck supple, No adenopathy Lymph nodes: No cervical lymphadenopathy and No supraclavicular lymphadenopathy Lungs: Lungs clear to auscultation. No wheezing, rhonchi, rales. Heart: RRR without murmur, gallop, or rubs. No ectopy Abdomen: Abdomen soft, non-tender. Bowel sounds normal. No masses, organomegaly Neurological: Gait normal. Reflexes normal and symmetric. Sensation intact. Depression Screening Never done Anxiety Screening Never done Influenza Vaccine(1) due on 02/23/2024 Covid-19 Vaccine(3 - 2022- season) due on 03/12/2025 DTaP,Tdap,Td Vaccine(2 - Td or Tdap) du (more content not included)... Normal [facility] Comprehensive metabolic 2000 panelon 03-12-2024 Albumin [Mass/Vol] 4.2 g/dL Normal 3.9-4.9 [facility] Comment on above: Order Comment: Speci men Type: BLOOD SPECIMENOrdering Facility: [facility] Address: [address] [place] [address] Performed By: #### 2 4323-8, 3051-0, 75174-2, 40416-8 ####[facility] [id number] [place] [address] [place] ALP [Catalytic activity/Vol] 60 U/L Normal 34-123 [facility] Comment on above: Order Comment: Speci men Type: BLOOD SPECIMENOrdering Facility: [facility] Address: [address] [place] [address] Performed By: #### 2 4323-8, 3051-0, 41236-3, 58816-9 ####[facility] [id number] [place] [address] [place] ALT [Catalytic activity/Vol] 15 U/L Normal 7-38 [facility] Comment on above: Order Comment: Speci men Type: BLOOD SPECIMENOrdering Facility: [facility] Address: [address] [place] [address] Performed By: #### 2 4323-8, 3051-0, 38389-6, 87770-5 ####[facility] [id number] [place] [id number] [place] Anion gap [Moles/Vol] 9 mmol/L Normal 8-15 [facility] Comment on above: Order Comment: Speci men Type: BLOOD SPECIMENOrdering Facility: [facility] Address: [address] [place] [address] Performed By: #### 2 4323-8, 3051-0, 73749-1, 38603-0 ####[facility] LABCLIA [id number] [address] [address] [place] AST [Catalytic activity/Vol] 18 U/L Normal 13-35 [facility] Comment on above: Order Comment: Speci men Type: BLOOD SPECIMENOrdering Facility: [facility] Address: [address] [place] [address] Performed By: #### 2 4323-8, 3051-0, 75729-4, 47300-1 ####[facility] LABIA [id number] [address] [address] [place] Bilirubin [Mass/Vol] 1.1 mg/dL Normal 0.2-1.3 [facility] Comment on above: Order Comment: Speci men Type: BLOOD SPECIMENOrdering Facility: [facility] Address: [address] [place] [address] Performed By: #### 2 4323-8, 3051-0, 39577-8, 63100-5 ####[facility] [id number] [place] [id number] [place] Calcium [Mass/Vol] 10.0 mg/dL Normal 8.5-10.2 [facility] Comment on above: Order Comment: Speci men Type: BLOOD SPECIMENOrdering Facility: [facility] Address: [address] [place] [address] Performed By: #### 2 4323-8, 3051-0, 11720-7, 40784-7 ####[facility] LABIA [id number] [address] [address] [place] Chloride [Moles/Vol] 104 mmol/L Normal 98-107 [facility] Comment on above: Order Comment: Speci men Type: BLOOD SPECIMENOrdering Facility: [facility] Address: [address] [place] [address] Performed By: #### 2 4323-8, 3051-0, 16977-4, 02947-2 ####[facility] LABCLIA [id number] [place] [id number] [place] CO2 [Moles/Vol] 24 mmol/L Normal 22-30 [facility] Comment on above: Order Comment: Speci men Type: BLOOD SPECIMENOrdering Facility: [facility] Address: [address] [place] [address] Performed By: #### 2 4323-8, 3051-0, 59763-7, 17400-6 ####[facility] LABIA [id number] [place] [address] [place] Creatinine [Mass/Vol] 0.66 mg/dL Normal 0.58-0.96 [facility] Comment on above: Order Comment: Speci men Type: BLOOD SPECIMENOrdering Facility: [facility] Address: [address] [place] [address] Performed By: #### 2 4323-8, 305-0, 41986-3, ####[facility] [id number] [place] [address] [place] Creatinine and Glomerular filtration rate.predicted panel (S/P/Bld) 115 mL/min/1.73m??? Normal >=60 [facility] Comment on above: Order Comment: Speci men Type: BLOOD SPECIMENOrdering Facility: [facility] Address: [address] [place] [address] Result Comment: Luana mated Glomerular Filtration Rate (eGFR) is calculated using the 2020 CKD-EPI creatinine equation. This equation utilizes serum creatinine, sex, and age as parameters. The creatinine assay has traceable calibration to isotope dilution-mass spectrometry. Refer to KDIGO guidelines for clinical interpretation. In patients with unstable renal function, e.g. those with acute kidney injury, the eGFR may not accurately reflect actual GFR. Performed By: #### 2 4323-8, 3051-0, 52929-3, 79550-8 ####[facility] LABCLIA [id number] [address] [address] [place] Glucose [Mass/Vol] 92 mg/dL Normal 74-99 [facility] Comment on above: Order Comment: Speci men Type: BLOOD SPECIMENOrdering Facility: [facility] Address: [address] [place] [id number] Result Comment: The [place] Diabetes [employer] (ADA) provides guidance for cutoff values for fasting glucose and random glucose. The ADA defines fasting as no caloric intake for at least 8 hours. Fasting plasma glucose results between 100 to 125 mg/dL indicate increased risk for diabetes (prediabetes). Fasting plasma glucose results greater than or equal to 126 mg/dL meet the criteria for diagnosis of diabetes. In the absence of unequivocal hyperglycemia, results should be confirmed by repeat testing. In a patient with classic symptoms of hyperglycemia or hyperglycemic crisis, random plasma glucose results greater than or equal to 200 mg/dL meet the criteria for diagnosis of diabetes. Reference: Standards of Medical Care in Diabetes 2016, [place] [employer] Association. Diabetes Care. 2016.39(Suppl 1). Performed By: #### 2 4323-8, 3051-0, 26062-0, 30571-4 ####[facility] LABCLIA [id number] [place] [address] [place] Potassium [Moles/Vol] 4.3 mmol/L Normal 3.7-5.1 [facility] Comment on above: Order Comment: Speci men Type: BLOOD SPECIMENOrdering Facility: [facility] Address: [address] [place], [place] [address] Performed By: #### 2 4323-8, 3051-0, 61192-4, 40797-1 ####[facility] LABCLIA [id number] [place] [id number] [place] Protein [Mass/Vol] 6.8 g/dL Normal 6.3-8.0 [facility] Comment on above: Order Comment: Speci men Type: BLOOD SPECIMENOrdering Facility: [facility] Address: [address] [place] [address] Performed By: #### 2 4323-8, 3051-0, 97927-3, 64481-3 ####[facility] LABCLIA [id number] [place] [id number] [place] Sodium [Moles/Vol] 137 mmol/L Normal 136-144 [facility] Comment on above: Order Comment: Speci men Type: BLOOD SPECIMENOrdering Facility: [facility] Address: [address] [place] [address] Performed By: #### 2 4323-8, 3051-0, 18347-2, 12009-7 ####[facility] LABIA [id number] [place] [address] [place] Urea nitrogen [Mass/Vol] 12 mg/dL Normal 7-21 [facility] Comment on above: Order Comment: Speci men Type: BLOOD SPECIMENOrdering Facility: [facility] Address: [address] [place] [address] Performed By: #### 2 4323-8, 3051-0, 76923-2, 99253-9 ####[facility] [id number] [place] [id number] [place] Ferritin SerPl-mCncon 2023 Ferritin [Mass/Vol] 30.2 ng/mL Normal 14.7-205.1 [facility] Comment on above: Order Comment: Speci men Type: BLOOD SPECIMENOrdering Facility: [facility] Address: [address] [place] [address] Performed By: #### 2 276-4, 2132-9, 3024-7, 3016-3 ####[facility] LABIA [id number] [place] [id number] [place] Iron and Iron binding capaci ty panelon 03-12-2024 Iron [Mass/Vol] 104 ug/dL Normal 41-186 [facility] Comment on above: Order Comment: Speci men Type: BLOOD SPECIMENOrdering Facility: [facility] Address: [address] [place] [address] Performed By: #### 2 4323-8, 3051-0, 01723-4, 85375-8 ####[facility] LABCLIA [id number] [place] [address] [place] Iron binding capacity [Mass/Vol] 410 ug/dL High 232-386 [facility] Comment on above: Order Comment: Speci men Type: BLOOD SPECIMENOrdering Facility: [facility] Address: [address] [place] [address] Performed By: #### 2 4323-8, 3051-0, 94078-1, 70992-1 ####[facility] LABIA [id number] [place] [address] [place] Iron/TIBC [Molar ratio] 25.4 % Normal 15.0-57.0 [facility] Comment on above: Order Comment: Speci men Type: BLOOD SPECIMENOrdering Facility: [facility] Address: [address] [place] [address] Performed By: #### 2 4323-8, 3051-0, 30671-3, 27539-9 ####[facility] LABIA [id number] [place] [address] [place] Lipid 1996 panelon 4 Cholesterol [Mass/Vol] 161 mg/dL Normal <200 [facility] Comment on above: Order Comment: Speci men Type: BLOOD SPECIMENOrdering Facility: [facility] Address: [address] [place] [address] Result Comment: <200 mg/dL, Desirable 200-239 mg/dL, Borderline high >239 mg/dL, High Performed By: #### 2 4323-8, 3051-0, 09167-4, 49562-5 ####[facility] LABCLIA [id number] [place] [address] [place] Cholesterol in HDL [Mass/Vol] 54 mg/dL Normal >39 [facility] Comment on above: Order Comment: Speci men Type: BLOOD SPECIMENOrdering Facility: [facility] Address: [address] [place] [address] Result Comment: 40-5 9 mg/dL, Acceptable >59 mg/dL, High: Negative risk factor for coronary heart disease <40 mg/dL, Low: Positive risk factor for coronary heart disease Performed By: #### 2 4323-8, 3051-0, 96765-7, 19272-3 ####[facility] LABCLIA [id number] [place] [address] [place] Cholesterol in LDL [Mass/Vol] 95 mg/dL Normal <100 [facility] Comment on above: Order Comment: Iesha tamera Type: BLOOD SPECIMENOrdering Facility: [facility] Address: [address] [place] [address] Result Comment: <100 mg/dL, Optimal 100-129 mg/dL, Near optimal/above optimal 130-159 mg/dL, Borderline high 160-189 mg/dL, High >189 mg/dL, Very high Secondary prevention optimal LDL Cholesterol levels are recommended to be < 70 mg/dL Performed By: #### 2 4323-8, 3051-0, 14938-4, 48304-6 ####[facility] LABCLIA [id number] [place] [address] [place] Cholesterol in LDL/Cholesterol in HDL [Mass ratio] 1.76 {ratio} Normal <2.54 [facility] Comment on above: Order Comment: Iesha philip Type: BLOOD SPECIMENOrdering Facility: [facility] Address: [address] [place] [address] Result Comment: Refe rence: 1. National Cholesterol Education Program ATP III Guideline At-A-Glance Quick Desk Reference: National Heart, Lung, and Blood [place]. National Institutes of Health. 2001: NIH Publication No. 01-3305. 2. An International Atherosclerosis Society position paper: global recommendations for the management of dyslipidemia: executive summary, Atherosclerosis. 2014: 232(2):410-413. Performed By: #### 2 4323-8, 3051-0, 88850-1, 90784-8 ####[facility] LABCLIA [id number] [address] [address] [place] Cholesterol in VLDL [Mass/Vol] 12 mg/dL Normal <30 [facility] Comment on above: Order Comment: Speci men Type: BLOOD SPECIMENOrdering Facility: [facility] Address: [address] [place] [address] Performed By: #### 2 4323-8, 3051-0, 95351-9, 01717-4 ####[facility] LABCLIA [id number] [address] [address] [place] Cholesterol non HDL [Mass/Vol] 107 mg/dL Normal <130 [facility] Comment on above: Order Comment: Speci men Type: BLOOD SPECIMENOrdering Facility: [facility] Address: [address] [place] [address] Result Comment: <130 mg/dL, Optimal 130-159 mg/dL, Near optimal/above optimal 160-189 mg/dL, Borderline high 190-219 mg/dL, High >219 mg/dL, Very high Secondary prevention optimal non HDL Cholesterol levels are recommended to be <100 mg/dL Performed By: #### 2 4323-8, 3051-0, 77502-7, 96557-2 ####[facility] LABCLIA [id number] [address] [address] [place] Cholesterol.total/Cho lesterol in HDL [Mass ratio] 2.98 {ratio} Normal <5.10 [facility] Comment on above: Order Comment: Speci men Type: BLOOD SPECIMENOrdering Facility: [facility] Address: [address] [place] [address] Performed By: #### 2 4323-8, 305-0, 74885-1, 59382-5 ####[facility] LABCLIA [id number] [address] [address] [place] FASTING TIME 12 hrs Normal [facility] Comment on above: Order Comment: Speci men Type: BLOOD SPECIMENOrdering Facility: [facility] Address: [address] [place] [address] Performed By: #### 2 4323-8, 3051-0, 18417-3, 83906-0 ####[facility] LABCLIA [id number] [place] [address] [place] Triglyceride [Mass/Vol] 60 mg/dL Normal <150 [facility] Comment on above: Order Comment: Speci men Type: BLOOD SPECIMENOrdering Facility: [facility] Address: [address] [place] [address] Result Comment: <150 mg/dL, Normal 150-199 mg/dL, Borderline high 200-499 mg/dL, High >499 mg/dL, Very high Performed By: #### 2 4323-8, 305-0, 96980-0, 52577-8 ####[facility] LABCLIA [id number] [place] [address] [place] T3Free SerPl-mCncon 03-12-20 24 Free T3 [Mass/Vol] 3.2 pg/mL Normal 2.3-4.1 [facility] Comment on above: Order Comment: Speci men Type: BLOOD SPECIMENOrdering Facility: [facility] Address: [address] [place] [address] Performed By: #### 2 4323-8, 305-0, 08282-4, 13063-8 ####[facility] LABCLIA [id number] [place] [address] [place] T4 Free SerPl-mCncon 024 Free T4 [Mass/Vol] 1.0 ng/dL Normal 0.9-1.7 [facility] Comment on above: Order Comment: Speci men Type: BLOOD SPECIMENOrdering Facility: [facility] Address: [address] [place] [address] Performed By: #### 2 276-4, 2132-9, 3024-7, 3016-3 ####[facility] LABCLIA [id number] [place] [address] [place] TSH SerPl-aCncon 03-12-2024 TSH Qn 1.290 m[IU]/L Normal 0.270-4.200 [facility] Comment on above: Order Comment: Speci men Type: BLOOD SPECIMENOrdering Facility: [facility] Address: [address] [place] [address] Result Comment: If t he patient is , TSH reference range varies by gestational period: First Trimester (weeks 9-12): 0.180-2.990 mIU/L Second Trimester: 0.110-3.980 mIU/L Third Trimester: 0.480-4.710 mIU/L Mynor Orozco et al. A Practical Approach for the Verifications and Determination of Site- and Trimester-Specific Reference Intervals for Thyroid Function tests in . Thyroid, 2019:29:3:412-420. Paul Sheets, et al. 2017 Guidelines of the [place] [employer] for the Diagnosis and Management of Thyroid Disease during and the . Thyroid, 2017:27:3:315-389. Performed By: #### 2 276-4, 2132-9, 3024-7, 3016-3 ####[facility] [id number] [place] [address] [place] Vit B12 SerPl-mCncon 024 Cobalamin (Vitamin B12) [Mass/Vol] 439 pg/mL Normal 232-1245 [facility] Comment on above: Order Comment: Speci men Type: BLOOD SPECIMENOrdering Facility: [facility] Address: [address] [place] [address] Performed By: #### 2 276-4, 2132-9, 3024-7, 3016-3 ####[facility] [id number] [place] [address] [place] COVID & INFLUENZA A/B & RSV NAAT, ROUTINEon 09-03-2023 FLUAV RNA MELINA+probe Ql (Unsp spec) Not detected Not Detected [facility] FLUBV RNA MELINA+probe Ql (Unsp spec) Not detected Not Detected [facility] RSV A RNA MELINA+probe Ql (Unsp spec) Not detected Not Detected [facility] SARS-CoV-2 (COVID-19) RNA MELINA+probe Ql (Resp) Not detected See comment [facility] STREP A MOLECULAR (POC)on Procedural Control Valid [facility] Strep A (POCT) Negative Negative [facility] CBC W Auto Differential pane l (Bld)on 04-04-2022 Abs Immature Gran <0.10 k/uL [facility] Basophils (Bld) [#/Vol] 0.07 10*3/uL <0.11 k/uL [facility] Basophils/100 WBC (Bld) 1.2 % [facility] Differential cell count method Nom (Bld) Auto [facility] Eosinophils (Bld) [#/Vol] <0.46 k/uL [facility] Eosinophils/100 WBC (Bld) 0.2 % [facility] Erythrocyte distribution width (RBC) [Ratio] 12.2 % 11.5 - 15.0 % [facility] Hematocrit (Bld) [Volume fraction] 41.5 % 36.0 - 46.0 % [facility] Hemoglobin (Bld) [Mass/Vol] 13.4 g/dL 11.5 - 15.5 g/dL [facility] Immature Gran % 0.0 % [facility] Lymphocytes (Bld) [#/Vol] 1.76 10*3/uL 1.00 - 4.00 k/uL [facility] Lymphocytes/100 WBC (Bld) 31.3 % [facility] MCH (RBC) [Entitic mass] 27.6 pg 26.0 - 34.0 pg [facility] MCHC (RBC) [Mass/Vol] 32.3 g/dL 30.5 - 36.0 g/dL [facility] MCV (RBC) [Entitic vol] 85.6 fL 80.0 - 100.0 fL [facility] Monocytes (Bld) [#/Vol] 0.50 10*3/uL <0.87 k/uL [facility] Monocytes/100 WBC (Bld) 8.9 % [facility] Neutrophils (Bld) [#/Vol] 3.28 10*3/uL 1.45 - 7.50 k/uL [facility] Neutrophils/100 WBC (Bld) 58.4 % [facility] Nucleated RBC (Bld) [#/Vol] <0.01 k/uL [facility] Nucleated RBC/100 WBC (Bld) [Ratio] 0.0 /100 WBC [facility] Platelet mean volume (Bld) [Entitic vol] 12.3 fL 9.0 - 12.7 fL [facility] Platelets (Bld) [#/Vol] 125 10*3/uL Low 150 - 400 k/uL [facility] RBC (Bld) [#/Vol] 4.85 10*6/uL 3.90 - 5.2 0 m/uL [facility] WBC (Bld) [#/Vol] 5.62 10*3/uL 3.70 - 11. 00 k/uL [facility] STREP A MOLECULAR (POC)on Procedural Control Valid [facility] Strep A (POCT) Negative Negative [facility] XR CHEST 2V FRONTAL/LATon [facility] XR Chest PA and Lateralon IMPRESSION: No acute radiographic abnormality. Pharmacy Coordinator: SAMANTHA Transcribe Date/Time: Sep 16 2021 11:09A Dictated by : MIGUEL ANGEL CABRAL MD This examination was interpreted and the report reviewed and electronically signed by: MIGUEL ANGEL CABRAL MD on Sep 16 2021 11:11AM [facility] DIVISION OF RADIOLOGY * * *Final Report* * * DATE OF EXAM: Sep 16 2021 11:05AM WOX 5291 - XR CHEST 2V FRONTAL/LAT / PROCEDURE REASON: Cough * * * * Physician Interpretation * * * * EXAMINATION: CHEST RADIOGRAPH (2 VIEW FRONTAL & LATERAL) CLINICAL HISTORY: Cough MQ: XC2_6 EXAM DATE/TIME: 09/16/2021 11:05 AM COMPARISON: No relevant prior studies available. RESULT: Lines, tubes, and devices: None. Lungs and pleura: No consolidation. No lung mass. No pleural effusion. No pneumothorax. Cardiomediastinal silhouette: Normal cardiomediastinal silhouette. Bones and soft tissues: Unremarkable. DIVISION OF RADIOLOGY Provider, [facility] - 09/16/2021 * * *Final Report* * * DATE OF EXAM: Sep 16 2021 11:05AM WOX 5291 - XR CHEST 2V FRONTAL/LAT / PROCEDURE REASON: Cough * * * * Physician Interpretation * * * * EXAMINATION: CHEST RADIOGRAPH (2 VIEW FRONTAL & LATERAL) CLINICAL HISTORY: Cough MQ: XC2_6 EXAM DATE/TIME: 09/16/2021 11:05 AM COMPARISON: No relevant prior studies available. RESULT: Lines, tubes, and devices: None. Lungs and pleura: No consolidation. No lung mass. No pleural effusion. No pneumothorax. Cardiomediastinal silhouette: Normal cardiomediastinal silhouette. Bones and soft tissues: Unremarkable. IMPRESSION IMPRESSION: No acute radiographic abnormality. Pharmacy Coordinator: [facility] Transcribe Date/Time: Sep 16 2021 11:09A Dictated by : MIGUEL ANGEL CABRAL MD This examination was interpreted and the report reviewed and electronically signed by: MIGUEL ANGEL CABRAL MD on Sep 16 2021 11:11AM EST [facility] Radiology Study observation (narrative) [facility] XR Chest PA and LateralOrder ed By: Cc Provider on 09-16-2021 [facility] XR Wrist - right PA and Late ral and Obliqueon 04-11-2021 * * *Final Report* * * DATE OF EXAM: Apr 11 2021 3:20PM WOX 5271 - XR WRIST 3V PA/LAT/OBL RT / PROCEDURE REASON: Right wrist pain * * * * Physician Interpretation * * * * Indication: Right wrist pain Comparison: None 3 views of the right wrist are obtained. There is normal architecture and mineralization of the bones. There is no acute fracture or dislocation. Joint spaces are maintained. Impression: 1. No acute fracture or dislocation. Pharmacy Coordinator: [facility] Transcribe Date/Time: Apr 11 2021 3:36P Dictated by : RAQUEL PERLA MD This examination was interpreted and the report reviewed and electronically signed by: RAQUEL PERLA MD on Apr 11 2021 3:38PM EST DIVISION OF RADIOLOGY Provider, [facility] - 04/11/2021 * * *Final Report* * * DATE OF EXAM: Apr 11 2021 3:20PM WOX 5271 - XR WRIST 3V PA/LAT/OBL RT / PROCEDURE REASON: Right wrist pain * * * * Physician Interpretation * * * * Indication: Right wrist pain Comparison: None 3 views of the right wrist are obtained. There is normal architecture and mineralization of the bones. There is no acute fracture or dislocation. Joint spaces are maintained. Impression: 1. No acute fracture or dislocation. Pharmacy Coordinator: SAMANTHA Transcribe Date/Time: Apr 11 2021 3:36P Dictated by : RAQUEL PERLA MD This examination was interpreted and the report reviewed and electronically signed by: RAQUEL PERLA MD on Apr 11 2021 3:38PM EST [facility] Radiology Study observation (narrative) [facility] XR Wrist - right PA and Late ral and ObliqueOrdered By: Ccf Provider on 04-11-2021 [facility] Vital Signs Date Time Vital Sign Value Performing Clinician Facility 12-23-2024 15:46-0400 Body height 170.2 cm Bacilio Miranda MD Work Phone: [facility] 12-23-2024 15:46-0400 Body mass index (BMI) [Ratio] 23.18 kg/m2 Bacilio Miranda MD Work Phone: [facility] 12-23-2024 15:46-0400 Body weight 67.13 kg Bacilio Miranda MD Work Phone: [facility] 12-23-2024 15:46-0400 Diastolic blood pressure 62 mm[Hg] Bacilio Miranda MD Work Phone: [facility] 12-23-2024 15:46-0400 Heart rate 74 /min Bacilio Miranda MD Work Phone: [facility] 12-23-2024 15:46-0400 SaO2% (BldA) [Mass fraction] 99 % Bacilio Miranda MD Work Phone: [facility] 12-23-2024 15:46-0400 Systolic blood pressure 114 mm[Hg] Bacilio Miranda MD Work Phone: [facility] 11-05-2024 10:08-0400 Body mass index (BMI) [Ratio] 23.18 kg/m2 Heena Jewell MD Work Phone: [facility] 11-05-2024 10:080400 Body weight 67.13 kg Heena Jewell MD Work Phone: [facility] 11-05-2024 10:08-0400 Diastolic blood pressure 62 mm[Hg] Heena Jewell MD Work Phone: [facility] 11-05-2024 10:08-0400 Systolic blood pressure 108 mm[Hg] Heena Jewell MD Work Phone: [facility] 09-20-2024 10:130400 Body mass index (BMI) [Ratio] 24.52 kg/m2 Krislyn Aberegg PA Work Phone: [facility] 09-20-2024 10:130400 Body temperature 98.6 [degF] Krislyn Aberegg PA Work Phone: [facility] 09-20-2024 10:130400 Body weight 71 kg Krislyn Aberegg PA Work Phone: [facility] 09-20-2024 10:13-0400 Diastolic blood pressure 80 mm[Hg] Krislyn Aberegg PA Work Phone: [facility] 09-20-2024 10:13-0400 Heart rate 126 /min Krislyn Aberegg PA Work Phone: [facility] 09-20-2024 10:13-0400 Respiratory rate 16 /min Krislyn Aberegg PA Work Phone: [facility] 09-20-2024 10:130400 SaO2% (BldA) [Mass fraction] 98 % Krislyn Aberegg PA Work Phone: [facility] 09-20-2024 10:130400 Systolic blood pressure 132 mm[Hg] Krislyn Aberegg PA Work Phone: [facility] 09-10-2024 09:010400 Body height 170.2 cm Bacilio Miranda MD Work Phone: [facility] 09-10-2024 09:01-0400 Body mass index (BMI) [Ratio] 24.12 kg/m2 Bacilio Miranda MD Work Phone: [facility] 09-10-2024 09:01-0400 Body weight 69.85 kg Bacliio Miranda MD Work Phone: [facility] 09-10-2024 09:01-0400 Diastolic blood pressure 66 mm[Hg] Bacilio Miranda MD Work Phone: [facility] 09-10-2024 09:01-0400 Systolic blood pressure 110 mm[Hg] Bacilio Miranda MD Work Phone: [facility] 03-12-2024 08:23-0400 Body mass index (BMI) [Ratio] 23.96 kg/m2 Angela Older BEHAVIORAL SCIENCE CHAIR.RAW FINISH MILL OPERATOR Work Phone: [facility] 03-12-2024 08:23-0400 Body weight 69.4 kg Angela Older BEHAVIORAL SCIENCE CHAIR.RAW FINISH MILL OPERATOR Work Phone: [facility] 03-12-2024 08:23-0400 Diastolic blood pressure 72 mm[Hg] Angela Older BEHAVIORAL SCIENCE CHAIR.RAW FINISH MILL OPERATOR Work Phone: [facility] 03-12-2024 08:23-0400 Heart rate 88 /min Angela Older BEHAVIORAL SCIENCE CHAIR.RAW FINISH MILL OPERATOR Work Phone: [facility] 03-12-2024 08:23-0400 Respiratory rate 16 /min Angela Older BEHAVIORAL SCIENCE CHAIR.RAW FINISH MILL OPERATOR Work Phone: [facility] 03-12-2024 08:23-0400 SaO2% (BldA) [Mass fraction] 98 % Angela Older BEHAVIORAL SCIENCE CHAIR.RAW FINISH MILL OPERATOR Work Phone: [facility] 03-12-2024 08:23-0400 Systolic blood pressure 118 mm[Hg] Angela Older BEHAVIORAL SCIENCE CHAIR.RAW FINISH MILL OPERATOR Work Phone: [facility] 09-03-2023 09:08-0400 Body height 170.2 cm Naomi Edwards PA-C Work Phone: [facility] 09-03-2023 09:08-0400 Body temperature 99.3 [degF] Naomi Denbow PA-C Work Phone: [facility] 09-03-2023 09:08-0400 Body weight 64.41 kg Naomi Denbow PA-C Work Phone: [facility] 09-03-2023 09:08-0400 Diastolic blood pressure 66 mm[Hg] Naomi Denbow PA-C Work Phone: [facility] 09-03-2023 09:08-0400 Heart rate 107 /min Naomi Denbow PA-C Work Phone: [facility] 09-03-2023 09:08-0400 Respiratory rate 12 /min Naomi Denbow PA-C Work Phone: [facility] 09-03-2023 09:08-0400 SaO2% (BldA) [Mass fraction] 100 % Naomi Denbow PA-C Work Phone: [facility] 09-03-2023 09:08-0400 Systolic blood pressure 102 mm[Hg] Naomi Denbow PA-C Work Phone: [facility] 08-30-2023 12:11-0500 Body temperature 100.09 [degF] Hermann Pendlebury BEHAVIORAL SCIENCE CHAIR.RAW FINISH MILL OPERATOR Work Phone: [facility] 08-30-2023 12:11-0500 Body weight 64.3 kg Hermann Sergio BEHAVIORAL SCIENCE CHAIR.RAW FINISH MILL OPERATOR Work Phone: [facility] 08-30-2023 12:11-0500 Diastolic blood pressure 72 mm[Hg] Hermann Pendlebury BEHAVIORAL SCIENCE CHAIR.RAW FINISH MILL OPERATOR Work Phone: [facility] 08-30-2023 12:11-0500 Heart rate 101 /min Hermann Pendlebury BEHAVIORAL SCIENCE CHAIR.RAW FINISH MILL OPERATOR Work Phone: [facility] 08-30-2023 12:11-0500 Respiratory rate 21 /min Hermann Pendlebury BEHAVIORAL SCIENCE CHAIR.RAW FINISH MILL OPERATOR Work Phone: [facility] 08-30-2023 12:11-0500 SaO2% (BldA) [Mass fraction] 96 % Hermann Pendlebury BEHAVIORAL SCIENCE CHAIR.RAW FINISH MILL OPERATOR Work Phone: [facility] 08-30-2023 12:11-0500 Systolic blood pressure 112 mm[Hg] Hermann Sergio BEHAVIORAL SCIENCE CHAIR.RAW FINISH MILL OPERATOR Work Phone: [facility] 02-11-2023 09:14-0400 Body height 170.2 cm Bacilio Miranda MD Work Phone: [facility] 02-11-2023 09:14-0400 Body weight 62.14 kg Bacilio Miranda MD Work Phone: [facility] 02-11-2023 09:14-0400 Diastolic blood pressure 62 mm[Hg] Bacilio Miranda MD Work Phone: [facility] 02-11-2023 09:14-0400 Systolic blood pressure 112 mm[Hg] Bacilio Miranda MD Work Phone: [facility] 04-04-2022 15:23-0400 Body height 170.2 cm Sarmad Siddiqui MD Work Phone: [facility] 04-04-2022 15:23-0400 Body temperature 97.59 [degF] Sarmad Siddiqui MD Work Phone: [facility] 04-04-2022 15:23-0400 Body weight 58.51 kg Sarmad Siddiqui MD Work Phone: [facility] 04-04-2022 15:23-0400 Diastolic blood pressure 60 mm[Hg] Sarmad Siddiqui MD Work Phone: [facility] 04-04-2022 15:23-0400 Heart rate 82 /min Sarmad Siddiqui MD Work Phone: [facility] 04-04-2022 15:23-0400 Respiratory rate 12 /min Sarmad Siddiqui MD Work Phone: [facility] 04-04-2022 15:23-0400 SaO2% (BldA) [Mass fraction] 96 % Sarmad Siddiqui MD Work Phone: [facility] 04-04-2022 15:23-0400 Systolic blood pressure 110 mm[Hg] Sarmad Siddiqui MD Work Phone: [facility] 02-08-2022 13:39-0400 Body height 171 cm Bacilio Miranda MD Work Phone: [facility] 02-08-2022 13:39-0400 Body weight 56.06 kg Bacilio Miranda MD Work Phone: [facility] 02-08-2022 13:39-0400 Diastolic blood pressure 60 mm[Hg] Bacilio Miranda MD Work Phone: [facility] 02-08-2022 13:39-0400 Systolic blood pressure 92 mm[Hg] Bacilio Miranda MD Work Phone: [facility] 09-16-2021 10:15-0400 Body temperature 98.4 [degF] Candi Praisler-Wood BEHAVIORAL SCIENCE CHAIR.RAW FINISH MILL OPERATOR Work Phone: [facility] 09-16-2021 10:15-0400 Body weight 57.88 kg Candi Praisler-Wood BEHAVIORAL SCIENCE CHAIR.RAW FINISH MILL OPERATOR Work Phone: [facility] 09-16-2021 10:15-0400 Diastolic blood pressure 68 mm[Hg] Candi Praisler-Wood BEHAVIORAL SCIENCE CHAIR.RAW FINISH MILL OPERATOR Work Phone: [facility] 09-16-2021 10:15-0400 Heart rate 112 /min Candi Praisler-Wood BEHAVIORAL SCIENCE CHAIR.RAW FINISH MILL OPERATOR Work Phone: [facility] 09-16-2021 10:15-0400 Respiratory rate 18 /min Candi Praisler-Wood BEHAVIORAL SCIENCE CHAIR.RAW FINISH MILL OPERATOR Work Phone: [facility] 09-16-2021 10:15-0400 SaO2% (BldA) [Mass fraction] 99 % Candi Praisler-Wood BEHAVIORAL SCIENCE CHAIR.RAW FINISH MILL OPERATOR Work Phone: [facility] 09-16-2021 10:15-0400 Systolic blood pressure 120 mm[Hg] Canid Praisler-Wood BEHAVIORAL SCIENCE CHAIR.RAW FINISH MILL OPERATOR Work Phone: [facility] Encounters Encounter Date Encounter Type Care Provider Facility Start: 01-01-2025 ambulatory Bacilio Miranda [facility] Start: 12-23-2024 End: 12-23-2024 Patient encounter procedure Bacilio Miranda MD Work Phone: OB/Gynecology Comment on above: Menorrhagia with irr egular cycle (Primary Dx); Dysmenorrhea Start: 12-23-2024 End: 12-23-2024 ambulatory [facility] Facility:[facility] Start: 11-13-2024 End: 11-13-2024 ambulatory [facility] Facility:[facility] Start: 11-05-2024 End: 11-05-2024 Patient encounter procedure Heena Jewell MD Work Phone: OB/Gynecology Comment on above: Abnormal uterine ble eding (AUB) (Primary Dx) Start: 11-05-2024 End: 11-05-2024 ambulatory BACILIO MIRANDA Facility:[facility] Start: 10-15-2024 End: 10-15-2024 ambulatory BACILIO MIRANDA Facility:[facility] Start: 09-21-2024 End: 11-21-2024 Follow-up encounter Bacilio Miranda MD Work Phone: OB/Gynecology Start: 09-20-2024 End: 09-20-2024 ambulatory SELF Facility:[facility] Start: 09-20-2024 End: 09-20-2024 Patient encounter procedure Malinda HERRING Work Phone: [facility] Comment on above: Bacterial sinusitis (Primary Dx) Start: 09-16-2024 End: 11-16-2024 Follow-up encounter Tatum Malagon APRN.CNP Work Phone: OB/Gynecology Start: 09-16-2024 End: 09-16-2024 ambulatory BACILIO MIRANDA Facility:[facility] Start: 09-16-2024 Encounter for gynecological examination (general) (routine) without abnormal findings [facility] Start: 09-16-2024 End: 09-16-2024 Patient [facility] status [facility] Start: 09-16-2024 End: 09-16-2024 Subsequent hospital visit by physician Screen Mammo [facility] Comment on above: Encounter for gyneco logical examination (general) (routine) without abnormal findings [Z01.419] Start: 09-10-2024 End: 09-10-2024 ambulatory SARMAD SIDDIQUI Facility:[facility] Start: 09-10-2024 End: 09-10-2024 Patient encounter procedure Bacilio Miranda MD Work Phone: OB/Gynecology Comment on above: Encounter for gyneco logical examination (general) (routine) without abnormal findings (Primary Dx); Encounter for screening mammogram for breast cancer; Abnormal uterine bleeding (AUB); Encounter for screening for malignant neoplasm of cervix; Special screening examination for human papillomavirus (HPV) Start: 09-10-2024 End: 09-10-2024 Patient encounter status Bacilio Miranda MD Work Phone: [facility] Start: 07-09-2024 End: 07-09-2024 Refill Bacilio Miranda MD Work Phone: OB/Gynecology Comment on above: Refill Request Start: 04-08-2024 End: 04-08-2024 Refill Bacilio Miranda MD Work Phone: OB/Gynecology Comment on above: Refill Request Start: 03-12-2024 End: 03-12-2024 ambulatory ANGELA CHAU Facility:[facility] Start: 03-12-2024 End: 03-12-2024 Patient encounter procedure Angela Chau APRN.RAW FINISH MILL OPERATOR Work Phone: [facility] Comment on above: Annual physical exam (Primary Dx); Other fatigue; Cold intolerance; Weight gain; History of iron deficiency; Vitamin D deficiency; Encounter for immunization Start: 09-03-2023 End: 09-03-2023 Patient encounter procedure Naomi Edwards PA-C Work Phone: [facility] Comment on above: Viral URI with cough (Primary Dx); Fever, unspecified fever cause Start: 08-30-2023 End: 08-30-2023 Office outpatient visit 15 minutes Hermann Hill APRN.RAW FINISH MILL OPERATOR Work Phone: [facility] Comment on above: Pharyngitis, unspeci fied etiology (Primary Dx); Viral illness Start: 02-11-2023 End: 02-11-2023 Patient encounter procedure Bacilio Miranda MD Work Phone: OB/Gynecology Comment on above: Encounter for gyneco logical examination (general) (routine) without abnormal findings (Primary Dx); Encounter for surveillance of contraceptive pills Start: 02-11-2023 End: 02-11-2023 Patient encounter status Bacilio Miranda MD Work Phone: [facility] Start: 09-18-2022 Refill Francine Benz APRN.CNDenise Work Phone: OB/Gynecology Comment on above: Refill Request Start: 04-26-2022 Refill Bacilio yap MD Work Phone: OB/Gynecology Comment on above: Refill Request Start: 04-04-2022 End: 04-04-2022 Patient encounter procedure Sarmad Siddiqui MD Work Phone: [facility] [place] Comment on above: Annual physical exam (Primary Dx); Need for influenza vaccination; Depression, unspecified depression type; Anxiety; History of ITP Start: 02-08-2022 End: 02-08-2022 Patient encounter procedure Bacilio Miranda MD Work Phone: OB/Gynecology Comment on above: Encounter for gyneco logical examination without abnormal finding (Primary Dx); Encounter for screening for malignant neoplasm of cervix; Special screening examination for human papillomavirus (HPV) Start: 02-08-2022 End: 02-08-2022 Patient encounter status Bacilio Miranda MD Work Phone: OB/Gynecology Start: 12-23-2021 Refill Bacilio yap MD Work Phone: OB/Gynecology Comment on above: Refill Request Start: 09-16-2021 End: 09-16-2021 Subsequent hospital visit by physician Poli [facility] Work Phone: Radiology Comment on above: Cough [R05.9] Start: 09-16-2021 End: 09-16-2021 Patient encounter procedure Candi Rao APRN.RAW FINISH MILL OPERATOR Work Phone: [facility] Comment on above: Sore throat (Primary Dx); Viral illness; Cough; Post-viral cough syndrome Start: 04-11-2021 End: 04-11-2021 Subsequent hospital visit by physician Poli [facility] Work Phone: Radiology Comment on above: Right wrist pain [M2 5.531] Start: 09-02-2017 End: 09-02-2017 [facility] Procedures Date Procedure Procedure Detail Performing Clinician Start: 11-05-2024 UA DIP,URINE HCG (POC) Bacilio Miranda MD Work Phone: Start: 09-16-2024 Screening digital br east tomosynthesis bi Bacilio Miranda MD Work Phone: Start: 09-03-2023 COVID & INFLUENZA A/ B & RSV NAAT, ROUTINE Naomi Edwards PA-C Work Phone: Start: 08-30-2023 STREP A MOLECULAR (POC) [facility] Provider Start: 04-04-2022 INFLUENZA VACCINE QUADRIVALENT 6 MO - 64 YRS IM Sarmad Siddiqui MD Work Phone: Start: 01-15-2022 Adult depression scr eening assessment Bacilio Miranda MD Work Phone: Start: 09-16-2021 Radiologic exam ches t 2 views Candi Rao APRN.RAW FINISH MILL OPERATOR Work Phone: Start: 09-16-2021 STREP A MOLECULAR (POC) Candi Rao APRN.RAW FINISH MILL OPERATOR Work Phone: Start: 04-11-2021 Radex wrist complete minimum 3 views Clementina Martinez APRN.RAW FINISH MILL OPERATOR Work Phone: Start: 09-16-2020 Adult depression scr eening assessment Candi Rao APRN.RAW FINISH MILL OPERATOR Work Phone: Plan of Treatment Date Care Activity Detail Author Start: 09-10-2029 Screening for malign ant neoplasm of cervix Cervical Cancer Screening [facility] Start: 02-08-2027 HPV TESTING HPV TESTING [facility] Start: 02-08-2027 PAP TESTING PAP TESTING [facility] Start: 02-08-2027 Screening for malign ant neoplasm of cervix [facility] Start: 10-10-2025 Urine microalbumin profile [facility] Start: 09-16-2025 Screening for malign ant neoplasm of breast Mammogram Screening [facility] Start: 09-13-2025 End: 09-13-2025 Patient encounter procedure 09/13/2025 8:40 AM EDT Office Visit OB/Gynecology [address] [place] [address] Bacilio Miranda MD [address] [place], [place] [id number] ANNUAL OB/Gynecology Comment on above: ANNUAL Start: 03-16-2025 End: 03-16-2025 Patient encounter procedure 03/16/2025 9:00 AM EDT Office Visit [facility] [place] [address] [place] [address] Sarmad Siddiqui MD [address] [place] [address] Annual visit [facility] Comment on above: Annual visit Start: 03-12-2025 Covid-19 Vaccine ( season) Covid-19 Vaccine ( season) [facility] Comment on above: Postponed from 02/22 (Declined at this time) Start: 03-12-2025 Covid-19 Vaccine ( season) Covid-19 Vaccine ( season) [facility] Comment on above: Postponed from 02/22 (Declined at this time) Start: 02-22-2025 Influenza vaccination Influenza Vacc ine (#1) [facility] Start: 02-05-2025 End: 02-05-2025 Patient encounter procedure 02/05/2025 9:00 AM EDT Office Visit OB/Gynecology [address] [place] [address] Bacilio Miranda MD [address] [place], [place] [phone] Yearly visit OB/Gynecology Comment on above: Yearly visit Start: 12-23-2024 End: 12-23-2024 Patient encounter procedure 12/23/2024 3:20 PM EDT Office Visit OB/Gynecology [address] [place] [address] Bacilio Miranda MD [address] [place] [address] (Fax) surgery 711 OB/Gynecology Comment on above: surgery 711 Start: 11-13-2024 End: 11-13-2024 ambulatory 11/13/2024 11:10 AM EDT [facility] OB/Gynecology [address] [place] [address] Bacilio Miranda MD [address] [place] [address] (Fax) discuss plan after u/s and EMB OB/Gynecology Comment on above: discuss plan after u /s and EMB Start: 11-05-2024 End: 11-05-2024 Patient encounter procedure 11/05/2024 10:10 AM EDT Office Visit OB/Gynecology [address] [place] [address] Bacilio Miranda MD [address] [place] [address] Abnormal uterine bleeding (AUB) [N93.9] OB/Gynecology Comment on above: Abnormal uterine ble eding (AUB) [N93.9] Start: 09-24-2024 End: 09-24-2024 ambulatory 09/24/2024 10:00 AM EDT Procedure OB/Gynecology [address] [place] [address] [facility] [address] [place] [address] Abnormal uterine bleeding (AUB) [N93.9] OB/Gynecology Comment on above: Abnormal uterine ble eding (AUB) [N93.9] Start: 09-16-2024 End: 09-16-2024 Patient encounter procedure 09/16/2024 7:30 AM EDT Appointment Mammogram [address] [place] [address] Encounter for screening mammogram for breast cancer [Z12.31] Mammogram Comment on above: Encounter for screen ing mammogram for breast cancer [Z12.31] Start: 09-10-2024 End: 09-10-2025 US Pelvis PELVIC US I Anc Imaging Routine Abnormal uterine bleeding (AUB) Expected: 09/10/2024, Expires: 09/10/2025 [facility] Comment on above: Expected: 09/10/2024 , Expires: 09/10/2025 Start: 05-27-2024 End: 05-27-2024 Patient encounter procedure 05/27/2024 9:00 AM EST Office Visit OB/Gynecology [address] [place] [address] Bacilio Miranda MD [address] [place] [address] Yearly visit OB/Gynecology Comment on above: Yearly visit Start: 04-23-2024 End: 04-23-2024 Patient encounter procedure 04/23/2024 8:20 AM EDT Office Visit Internal Medicine [place] [address] [facility] [place] [address] Angela Chau APRN.RAW FINISH MILL OPERATOR [address] [place] [address] 6 week follow up [facility] Comment on above: 6 week follow up Start: 03-12-2024 End: 06-11-2024 25-hydroxyvitamin D3 [Mass/volume] in Serum or Plasma [facility] Comment on above: Expected: 03/12/2024 , Expires: 06/11/2024 Start: 03-12-2024 End: 06-11-2024 CBC W Auto Differential panel - Blood [facility] Comment on above: Expected: 03/12/2024 , Expires: 06/11/2024 Start: 03-12-2024 End: 06-11-2024 Cobalamin (Vitamin B12) [Mass/volume] in Serum or Plasma [facility] Comment on above: Expected: 03/12/2024 , Expires: 06/11/2024 Start: 03-12-2024 End: 06-11-2024 Comprehensive metabolic 2000 panel - Serum or Plasma [facility] Comment on above: Expected: 03/12/2024 , Expires: 06/11/2024 Start: 03-12-2024 End: 06-11-2024 Ferritin [Mass/volume] in Serum or Plasma [facility] Comment on above: Expected: 03/12/2024 , Expires: 06/11/2024 Start: 03-12-2024 End: 06-11-2024 Iron and Iron binding capacity panel - Serum or Plasma [facility] Comment on above: Expected: 03/12/2024 , Expires: 06/11/2024 Start: 03-12-2024 End: 06-11-2024 Lipid 1996 panel - Serum or Plasma [facility] Work Phone: Comment on above: Expected: 03/12/2024 , Expires: 06/11/2024 Start: 03-12-2024 End: 06-11-2024 Thyrotropin [Units/volume] in Serum or Plasma [facility] Comment on above: Expected: 03/12/2024 , Expires: 06/11/2024 Start: 03-12-2024 End: 06-11-2024 Thyroxine (T4) free [Mass/volume] in Serum or Plasma [facility] Comment on above: Expected: 03/12/2024 , Expires: 06/11/2024 Start: 03-12-2024 End: 06-11-2024 Triiodothyronine (T3) Free [Mass/volume] in Serum or Plasma [facility] Comment on above: Expected: 03/12/2024 , Expires: 06/11/2024 Start: 06-24-2023 Depression Assessment Depression Ass essment [facility] Start: 02-22-2023 Covid-19 Vaccine () Covid-19 Vaccine () [facility] Start: 02-22-2023 Influenza vaccination C [facility] Start: 01-15-2023 Adult depression scr eening assessment DEPRESSION SCREENING [facility] Start: 08-12-2022 HPV TESTING HPV TESTING [facility] Start: 08-12-2022 PAP TESTING PAP TESTING [facility] Start: 06-24-2022 DEPRESSION ASSESSMENT DEPRESSION ASS ESSMENT [facility] Start: 02-22-2022 Influenza vaccination INFLUENZA (#1) [facility] Start: 09-16-2021 Adult depression scr eening assessment DEPRESSION SCREENING [facility] Start: 09-16-2021 End: 09-30-2021 Influenza virus A and B RNA and SARS-CoV-2 (COVID-19) N gene panel - Respiratory specimen by MELINA with probe detection COVID WITH FLUA+B, ROUTINE Microbiology Routine Viral illness Expected: 09/16/2021, Expires: 09/30/2021 [facility] Work Phone: Comment on above: Expected: 09/16/2021 , Expires: 09/30/2021 Start: 03-15-2021 COVID-19 VACCINE (3 - Booster for Pfizer series) COVID-19 VACCINE (3 - Booster for Pfizer series) [facility] Start: 02-22-2021 Influenza vaccination INFLUENZA (#1) [facility] Start: 12-08-2020 COVID-19 VACCINE (3 - Booster for Pfizer series) COVID-19 VACCINE (3 - Booster for Pfizer series) [facility] Start: 12-08-2020 COVID-19 VACCINE (3 - Pfizer series) COVID-19 VACCINE (3 - Pfizer series) [facility] End: 10-10-2025 DBT Breast - bilateral screening EMMANUEL SCREENING [facility] Radiology Routine Encounter for gynecological examination (general) (routine) without abnormal findings Encounter for screening mammogram for breast cancer 1 Occurrences starting 09/10/2024 until 10/10/2025 [facility] Work Phone: Comment on above: 1 Occurrences starti ng 09/10/2024 until 10/10/2025 Endometrial bx w/wo endocervix bx w/o dilat spx ENDOMETRIAL BIOPSY Procedures Routine Abnormal uterine bleeding (AUB) Ordered: 09/10/2024 [facility] Comment on above: Ordered: 09/10/2024 PAP FLUID CERVICAL SCREENING PAP FLUID CERVICAL SCREENING Lab Routine Encounter for screening for malignant neoplasm of cervix Special screening examination for human papillomavirus (HPV) 02/08/2022 2:04 PM EDT [facility] Work Phone: PAP TEST PAP TEST Lab Danyelle johnson Encounter for gynecological examination (general) (routine) without abnormal findings Abnormal uterine bleeding (AUB) Encounter for screening for malignant neoplasm of cervix Special screening examination for human papillomavirus (HPV) 09/10/2024 10:13 AM EDT [facility] Tissue Pathology bio psy report SURGICAL PATHOLOGY Lab Routine Abnormal uterine bleeding (AUB) 11/05/2024 10:30 AM EDT [facility] Work Phone: [facility] Immunizations Immunization Date Immunization Notes Care Provider [facility] 03-12-2024 influenza, seasonal, injectable Angela Chau BEHAVIORAL SCIENCE CHAIR.RAW FINISH MILL OPERATOR Work Phone: [facility] 03-12-2024 influenza virus vaccine, unspecified formulation Bacilio Miranda MD Work Phone: [facility] 04-04-2022 influenza, injectabl e, quadrivalent, contains preservative Sarmad Siddiqui MD Work Phone: [facility] Work Phone: 04-04-2022 influenza virus vaccine, unspecified formulation Hermann Hill BEHAVIORAL SCIENCE CHAIR.RAW FINISH MILL OPERATOR Work Phone: [facility] 10-13-2020 COVID-19 vaccine, ag e 12+ yr (PFIZER-BIONTECH - PURPLE TOP) Candi Rao BEHAVIORAL SCIENCE CHAIR.RAW FINISH MILL OPERATOR Work Phone: [facility] Work Phone: 09-22-2020 COVID-19 vaccine, ag e 12+ yr (PFIZER-BIONTECH - PURPLE TOP) Candi Rao BEHAVIORAL SCIENCE CHAIR.RAW FINISH MILL OPERATOR Work Phone: [facility] Work Phone: 07-15-2017 influenza, injectabl e, quadrivalent, contains preservative Candi Rao BEHAVIORAL SCIENCE CHAIR.RAW FINISH MILL OPERATOR Work Phone: [facility] 12-24-2015 measles, mumps and rubella virus vaccine Bacilio Miranda MD Work Phone: [facility] 10-11-2015 tetanus toxoid, reduced diphtheria toxoid, and acellular pertussis vaccine, adsorbed Candi Rao APRN.RAW FINISH MILL OPERATOR Work Phone: [facility] Work Phone: 06-20-2015 influenza, injectabl e, quadrivalent, contains preservative Candi Rao BEHAVIORAL SCIENCE CHAIR.RAW FINISH MILL OPERATOR Work Phone: [facility] 04-24-2006 influenza virus vaccine, unspecified formulation Candi Rao APRN.[facility] Work Phone: [facility] Payers Date Payer Category Payer Self-pay 2024 Unknown [id number] 2021 [employer] BLUE CARD PPO OOS [id number] 2021 Unknown MIRIAM BLUE CARD PPO OOS [id number] 2021-Present [phone] [address] [place] [address] PPO [id number] 2021 Unknown [id number] 2019 Unknown [id number] Unknown [id number] Social History Date Type Detail Facility Start: 10-25-2010 End: 02-08-2022 Tobacco smoking status NHIS Ex-smoker [facility] Start: 05-28-2003 End: 05-28-2005 History of tobacco use Current smoker [facility] Start: 05-28-2003 End: 05-28-2005 History of tobacco use Cigarette Smoker [facility] Start: 09-16-2021 End: 12-23-2024 Alcohol intake Current non-drinker of alcohol (finding) [facility] Start: 09-16-2020 End: 04-04-2022 History SDOH Alcohol Frequency 1 [facility] Start: 09-16-2020 End: 01-16-2022 History SDOH Alcohol Std Drinks 98 [facility] Start: 09-16-2020 End: 04-04-2022 History SDOH Social Connections Phone 2 [facility] Start: 09-16-2020 End: 01-16-2022 History SDOH Social Connections Living 3 [facility] Start: 09-16-2020 End: 01-16-2022 History SDOH Physical Activity DPW 5 [facility] Start: 09-16-2020 End: 01-16-2022 History SDOH Physical Activity MPS 6 [facility] Start: 09-16-2020 Education 10 [facility] Start: 1985 Sex Assigned At Not on file C [facility] Start: 09-06-2021 End: 04-04-2022 Exposure to SARS-CoV-2 (event) Not sure [facility] Start: 02-08-2022 End: 11-02-2022 Cigarettes smoked current (pack per day) - Reported 0.5 [facility] Start: 10-25-2010 End: 02-08-2022 Tobacco use and exposure Smokeless tobacco non-user [facility] Start: 01-15-2022 End: 11-02-2022 Social connection and isolation panel [facility] Do you belong to any clubs or organizations such as congregational groups, unions, fraternal or athletic groups, or school groups? No [facility] How often do you att end meetings of the clubs or organizations you belong to? Patient refused [facility] Are you now , , , , never or living with a partner? [facility] How often to you hav e a drink containing alcohol? Never [facility] Do you feel stress - tense, restless, nervous, or anxious, or unable to sleep at night because your mind is troubled all the time - these days [OSQ] To some extent [facility] (I/We) worried wheth er (my/our) food would run out before (I/we) got money to buy more. Never true [facility] Do you feel stress - tense, restless, nervous, or anxious, or unable to sleep at night because your mind is troubled all the time - these days [OSQ] Only a little [facility] Functional Status Date Assessment Result Facility 08-20-2014 Are you deaf, or do you have serious difficulty hearing No 08/20/2014 1:34 PM Raquel Ahuja Ma [facility] 08-20-2014 Are you blind, or do you have serious difficulty seeing, even when wearing glasses No 08/20/2014 1:34 PM Raquel Ahuja Ma [facility] 08-20-2014 Do you have serious difficulty walking or climbing stairs No 08/20/2014 1:34 PM Raquel Ahuja Ma [facility] 08-20-2014 Do you have difficul ty dressing or bathing No 08/20/2014 1:34 PM Raquel Ahuja Ma [facility] 08-20-2014 Because of a physica l, mental, or emotional condition, do you have difficulty doing errands alone such as visiting a physician's office or shopping No 08/20/2014 1:34 PM Raquel Ahuja Ma [facility] Mental Status Date Assessment Result Facility 08-20-2014 Because of a physica l, mental, or emotional condition, do you have serious difficulty concentrating, remembering, or making decisions No 08/20/2014 1:34 PM Raquel Ahuja Ma [facility] Clinical Notes 02-16-2016 to 12-23-2024 Bacilio Miranda MD - 12/23/2024 3:54 PM Bacilio Garcia MD - 12/23/2024 3:47 PM Bacilio Garcia MD - 12/23/2024 3:47 PM EDTPatient InstructionsPatient Instructions Note Date & Type Note Facility 12-23-2024 History of Presen t illness Narrative Naomi Elder is a 39 year old female who presents for problem visit for heavy bleeding. . HPI: 39 YOF has completed child bearing. Tried IUD in the past. Tried OCPS as well. Wants definitive treatment for bleeding in the form of endometrial ablation. 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 Contraception: Tubal Ligation Menstrual Tracking History Flowsheet Row Office Visit from 09/10/2024 in OB/Gynecology Period Cycle (Days) 45 Period Duration (Days) 3 Menstrual Flow Light PAST MEDICAL HISTORY Diagnosis Date Anemia WITH 1ST Antiphospholipid antibody syndrome (HCC) no official syndrome but mildly elevated levels anxiety [id number] anxiety/depression Fibroadenosis of breast Insertion of IUD 06/01/09 mirena Mental disorder Placental abruption, antepartum (HCC) 10/28/2013 Varicella without mention of complication 8y/o Chickenpox PAST SURGICAL HISTORY Procedure Laterality Date BREAST BIOPSY 05/2005 FIBROADENOMA DELIVERY ONLY 2016 stat for abruption D&C (MISSED AB 1ST TRIMESTER) 2013 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 06/01/09 mirena AND REMOVAL LAPAROSCOPIC TUBAL LIGATION/RING/CLIP 03/22/16 tubal w/ filshie owen FAMILY HISTORY Problem Relation Age of Onset Asthma Mother Cervical Cancer Mother Hypertension Mother Osteoporosis Mother Psychiatry Mother DEPRESSION Stroke Mother Dementia Mother Arthritis Father Psychiatry Father DEPRESSION Asthma Sister Arthritis Maternal Grandmother Hypertension Maternal Grandmother Stroke Maternal Grandmother Thyroid Maternal Grandmother Colon Cancer Paternal Grandmother other (multiple mylomia) Paternal Grandmother Hypothyroidism Paternal Grandmother Colon Cancer Paternal Grandfather Heart Paternal Grandfather [place] Hypertension Paternal Grandfather other (hypothyroidism) Daughter Asthma Maternal Aunt Alzheimer's Disease Other [facility] Social History Tobacco Use Smoking status: Former Current packs/day: 0.00 Average packs/day: 0.5 packs/day for 2.0 years (1.0 ttl pk-yrs) Types: Cigarettes Start date: 05/28/2003 Quit date: 05/28/2005 Years since quittin.5 Smokeless tobacco: Never Vaping Use Vaping status: Never Used Substance Use Topics Alcohol use: No Drug use: No Current Outpatient Medications Medication Sig Norethindrn A-E Estradiol-Iron (BLISOVI 24 FE) 1 mg-20 mcg (24)/75 mg (4) Take 1 tablet by mouth once daily. COMPOUNDED PRESCRIPTION Women's one a day multivitamin No current facility-administered medications for this visit. Allergies As of Date: 12/23/2024 (No Known Allergies) Fully Assessed 12/23/2024 Allergies and current medication updated:Yes SENSITIVE EXAM: Sensitive exam not performed. EXAM: BP 114/62 Pulse 74 Ht 5' 7 (1.70m) Wt 148 lb (67.1kg) SpO2 99% LMP 08/24/2024 BMI 23.17 kg/(m^2). GENERAL: pleasant, female in no apparent distress ASSESSMENT AND PLAN: Assessment & Plan Menorrhagia with irregular cycle Dysmenorrhea decision for surgery today. Bacilio Miranda MD documented in this encounter [facility] 12-23-2024 History and physical note Pre-Op History and Physical HPI: The patient is a 39 year old female presenting for pre-operative visit. She is scheduled for hysteroscopy with endometrial ablationn for menorrhagia and dysmenorrhea, on 01/01/25. Procedure discussed along with risks, benefits and complications. Other alternatives discussed for management. Consent form signed? Yes. 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 84 tablet 4 COMPOUNDED PRESCRIPTION Women's one a day multivitamin No current facility-administered medications for this visit. ALLERGIES: Patient has no known allergies. PERSONAL HISTORY: Social History Tobacco Use Smoking status: Former Current packs/day: 0.00 Average packs/day: 0.5 packs/day for 2.0 years (1.0 ttl pk-yrs) Types: Cigarettes Start date: 05/28/2003 Quit date: 05/28/2005 Years since quittin.5 Smokeless tobacco: Never Vaping Use Vaping status: Never Used Substance Use Topics Alcohol use: No Drug use: No FAMILY HISTORY: FAMILY HISTORY Problem Relation Age of Onset Asthma Mother Cervical Cancer Mother Hypertension Mother Osteoporosis Mother Psychiatry Mother DEPRESSION Stroke Mother Dementia Mother Arthritis Father Psychiatry Father DEPRESSION Asthma Sister Arthritis Maternal Grandmother Hypertension Maternal Grandmother Stroke Maternal Grandmother Thyroid Maternal Grandmother Colon Cancer Paternal Grandmother other (multiple mylomia) Paternal Grandmother Hypothyroidism Paternal Grandmother Colon Cancer Paternal Grandfather Heart Paternal Grandfather [place] Hypertension Paternal Grandfather other (hypothyroidism) Daughter Asthma Maternal Aunt Alzheimer's Disease Other [facility] REVIEW OF SYMPTOMS: GENERAL: denies fevers or chills ENDOCRINOLOGY: has not been on steroids Cardiology : denies palpitations or chest pain Respiratory: denies SOB or cough Hematology: denies history of prolonged bleeding or easy bruising or VTE Allergy: Denies history of personal or family history of allergy to anesthesia PHYSICAL EXAMINATION: VITALS: Blood pressure 114/62, pulse 74, height 170.2 cm (5' 7), weight 67.1 kg (148 lb), last menstrual period 08/24/2024, SpO2 99%. GENERAL: The patient is well nourished, well hydrated in no acute distress. , The patient is oriented to time, place, and person. NECK: Supple. No lynphadenopathy, normal thyroid, no thyromegaly. LUNGS: Clear to auscultation bilaterally. no wheezes, rhonchi or rales HEART: Regular rate and rhythm, Normal heart sounds, and No murmurs or gallops IMPRESSION: menorrhagia w/ irreg cycle and dysmenorrhea PLAN: The risks/benefits/alternatives and personal involved for the planned hysteroscopy with endometrial ablation were reviewed with the patient. Her questions were answered to her satisfaction and she desires to proceed. Consent was signed. I reviewed with her postop instructions and expectations. I have reviewed and updated past medical and surgical history, medications and allergies Bacilio Miranda M.D. [facility] 12-23-2024 History and physical note Pre-Op History and Physical HPI: The patient is a 39 year old female presenting for pre-operative visit. She is scheduled for hysteroscopy with endometrial ablationn for menorrhagia and dysmenorrhea, on 01/01/25. Procedure discussed along with risks, benefits and complications. Other alternatives discussed for management. Consent form signed? Yes. PAST MEDICAL HISTORY Diagnosis Date Anemia WITH 1ST Antiphospholipid antibody syndrome (HCC) no official syndrome but mildly elevated levels anxiety [id number] anxiety/depression Fibroadenosis of breast Insertion of IUD 06/01/09 mirena Mental disorder Placental abruption, antepartum (HCC) 10/28/2013 Varicella without mention of complication 8y/o Chickenpox PAST SURGICAL HISTORY Procedure Laterality Date BREAST BIOPSY 05/2005 FIBROADENOMA DELIVERY ONLY 2015 stat for abruption D&C (MISSED AB 1ST TRIMESTER) 2013 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 06/01/09 mirena AND REMOVAL LAPAROSCOPIC TUBAL LIGATION/RING/CLIP 03/22/16 tubal w/ filshie clips Current Outpatient Medications Medication Sig Dispense Refill Norethindrn A-E Estradiol-Iron (BLISOVI 24 FE) 1 mg-20 mcg (24)/75 mg (4) Take 1 tablet by mouth once daily. 84 tablet 4 COMPOUNDED PRESCRIPTION Women's one a day multivitamin No current facility-administered medications for this visit. ALLERGIES: Patient has no known allergies. PERSONAL HISTORY: Social History Tobacco Use Smoking status: Former Current packs/day: 0.00 Average packs/day: 0.5 packs/day for 2.0 years (1.0 ttl pk-yrs) Types: Cigarettes Start date: 05/28/2003 Quit date: 05/28/2005 Years since quittin.5 Smokeless tobacco: Never Vaping Use Vaping status: Never Used Substance Use Topics Alcohol use: No Drug use: No FAMILY HISTORY: FAMILY HISTORY Problem Relation Age of Onset Asthma Mother Cervical Cancer Mother Hypertension Mother Osteoporosis Mother Psychiatry Mother DEPRESSION Stroke Mother Dementia Mother Arthritis Father Psychiatry Father DEPRESSION Asthma Sister Arthritis Maternal Grandmother Hypertension Maternal Grandmother Stroke Maternal Grandmother Thyroid Maternal Grandmother Colon Cancer Paternal Grandmother other (multiple mylomia) Paternal Grandmother Hypothyroidism Paternal Grandmother Colon Cancer Paternal Grandfather Heart Paternal Grandfather IA Hypertension Paternal Grandfather other (hypothyroidism) Daughter Asthma Maternal Aunt Alzheimer's Disease Other MGGM REVIEW OF SYMPTOMS: GENERAL: denies fevers or chills ENDOCRINOLOGY: has not been on steroids Cardiology : denies palpitations or chest pain Respiratory: denies SOB or cough Hematology: denies history of prolonged bleeding or easy bruising or VTE Allergy: Denies history of personal or family history of allergy to anesthesia PHYSICAL EXAMINATION: VITALS: Blood pressure 114/62, pulse 74, height 170.2 cm (5' 7), weight 67.1 kg (148 lb), last menstrual period 08/24/2024, SpO2 99%. GENERAL: The patient is well nourished, well hydrated in no acute distress. , The patient is oriented to time, place, and person. NECK: Supple. No lynphadenopathy, normal thyroid, no thyromegaly. LUNGS: Clear to auscultation bilaterally. no wheezes, rhonchi or rales HEART: Regular rate and rhythm, Normal heart sounds, and No murmurs or gallops IMPRESSION: menorrhagia w/ irreg cycle and dysmenorrhea PLAN: The risks/benefits/alternatives and personal involved for the planned hysteroscopy with endometrial ablation were reviewed with the patient. Her questions were answered to her satisfaction and she desires to proceed. Consent was signed. I reviewed with her postop instructions and expectations. I have reviewed and updated past medical and surgical history, medications and allergies Bacilio Miranda M.D. documented in this encounter [facility] 11-13-2024 Note HNO ID: [id number] Author: BACILIO MIRANDA MD Service: ? Author Type: Physician Type: Progress Notes Filed: 11/13/2024 11:45 Note Text: VIRTUAL VISIT PROGRESS NOTE This is a virtual visit using [employer] Video Visit. It required patient-provider interaction for the medical decision making as documented below. I have communicated my name and active licensure. The patient's identity and physical location were verified at the time of this visit. Either the patient or their legal equal opportunity representative has been informed of the risks and benefits of -- and alternatives to -- treatment through a remote evaluation and consents to proceed with the evaluation remotely. Naomi Elder is a 39 year old female seen for f/u AUB. Has tried IUD in past and had a lot of problems w/ pain w/ it. ON control now and still has irreg bleeding and a lot of pain. . HISTORY REVIEWED (electronic chart updated): PAST MEDICAL HISTORY Diagnosis Date Anemia WITH 1ST Antiphospholipid antibody syndrome (HCC) no official syndrome but mildly elevated levels anxiety [id number] anxiety/depression Fibroadenosis of breast Insertion of IUD 06/01/09 mirena Mental disorder Placental abruption, antepartum (HCC) 10/28/2013 Varicella without mention of complication 8y/o Chickenpox PAST SURGICAL HISTORY Procedure Laterality Date BREAST BIOPSY 05/2005 FIBROADENOMA DELIVERY ONLY 2016 stat for abruption DANDC (MISSED AB 1ST TRIMESTER) 2013 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 06/01/09 mirena AND REMOVAL LAPAROSCOPIC TUBAL LIGATION/RING/CLIP 03/22/16 tubal w/ filshie clips FAMILY HISTORY Problem Relation Age of Onset Asthma Mother Cervical Cancer Mother Hypertension Mother Osteoporosis Mother Psychiatry Mother DEPRESSION Stroke Mother Dementia Mother Arthritis Father Psychiatry Father DEPRESSION Asthma Sister Arthritis Maternal Grandmother Hypertension Maternal Grandmother Stroke Maternal Grandmother Thyroid Maternal Grandmother Colon Cancer Paternal Grandmother other (multiple mylomia) Paternal Grandmother Hypothyroidism Paternal Grandmother Colon Cancer Paternal Grandfather Heart Paternal Grandfather IA Hypertension Paternal Grandfather other (hypothyroidism) Daughter Asthma Maternal Aunt Alzheimer's Disease Other MGGM Social History Tobacco Use Smoking status: Former Current packs/day: 0.00 Average packs/day: 0.5 packs/day for 2.0 years (1.0 ttl pk-yrs) Types: Cigarettes Start date: 05/28/2003 Quit date: 05/28/2005 Years since quittin.4 Smokeless tobacco: Never Vaping Use Vaping status: Never Used Substance Use Topics Alcohol use: No Drug use: No Current Outpatient Medications Medication Sig Norethindrn A-E Estradiol-Iron (BLISOVI 24 FE) 1 mg-20 mcg (24)/75 mg (4) Take 1 tablet by mouth once daily. COMPOUNDED PRESCRIPTION Women's one a day multivitamin No current facility-administered medications for this visit. ALLERGIES No Known Allergies PHYSICAL EXAMINATION: VIDEO EXAM: (if completed, performed via video enabled technology) GENERAL: alert and appropriate, in no distress, well-hydrated, well nourished, and happy, smiling, interactive Assessment AND Plan Menorrhagia with irregular cycle Dysmenorrhea Has completed child bearing. OCPs not satisfactory w/ control of bleeding. Tried IUD/ R/B/A to hysteroscopy with endometrial ablation reviewed. Understands contraindication to future child bearing. She desires to proceed. There are no Patient Instructions on file for this visit. Bacilio Miranda MD [facility] 11-05-2024 Instructions [place] - 11/05/2024 10:05 AM EDT YOUR RECOVERY After your biopsy you may have: Vaginal bleeding (less than a normal menstrual period) Mild cramping Do NOT put anything in the vagina for 1 week after your endometrial biopsy. This includes: tampons douches and refraining from having sexual intercourse If you have any discomfort, you may take an over the counter pain medication (motrin, advil, ibuprofen, tylenol, etc). If this does not relieve your discomfort, contact the office. It is okay to wear a sanitary pad until the discharge and spotting stops. RISKS Although problems seldom occur with endometrial biopsies, there can be some complications. You may feel faint during and shortly after the procedure as well as have some bleeding after the procedure. There is also a risk of infection after the procedure. These complications are rare and can be easily treated. You should contact you doctor is you have any of the following: Heavy bleeding (more than your normal period) Bleeding with clots Severe abdominal pain Fever (more than 100.4F) Foul smelling vaginal discharge RESULTS We will have the results of your biopsy in 1-2 weeks. If you do not hear the results of your biopsy after 2 weeks, please contact the office for the results. If you have any additional questions or concerns please do not hesitate to contact the office. documented in this encounter [facility] 11-05-2024 Note HNO ID: [id number] Author: HEENA JEWELL MD Service: ? Author Type: Physician Type: Progress Notes Filed: 11/05/2024 10:30 Note Text: Naomi is a 39 year old who presents today for an endometrial biopsy for abnormal uterine bleeding. test: negative UNIVERSAL PROTOCOL / SAFETY CHECKLIST Procedure to be Performed: EMB Sign In: A Moment of CARE was completed. Appropriate PPE (Personal Protective Equipment) worn by all providers involved with the procedure. Special equipment not required. Patient/Surrogate Stated/Verified: Patient name, Date of , Relevant allergies, and The intended procedure Time Out: Relevant labs, photos, and/or imaging studies have been reviewed. Intended patient and procedure match the source document(s) (e.g. consent, HANDP, associated studies [imaging, pathology]) match the intended patient and procedure. Consent obtained and matches the intended procedure. Yes. Correct side/site is not applicable. Medications required for this procedure are verified. are not applicable. Fire risk assessed and is not applicable. Implants: are not applicable. Sign Out: Specimens are all correctly labeled and sent. All instruments, equipment, possible retained foreign bodies are accounted for. Yes. The post-procedure plan of care has been communicated to the patient or surrogate. PROCEDURE: EXTERNAL GENITALIA: Normal in appearance without lesions VAGINA: Normal in appearance without lesions BIOPSY: Speculum placed into the vagina with excellent visualization of the cervix. Cervix cleaned with betadine. Anterior lip of cervix grasped with single toothed tenaculum. Uterus sounded to 8 cm. Pipelle inserted into the uterus without difficulty and endometrial biopsy obtained. Specimen labeled and sent to pathology. Hemostasis achieved. Procedure Summary: Patient tolerated procedure well. ASSESSMENT: abnormal uterine bleeding PLAN: Specimens labeled and sent to Pathology. Will notify patient of results in 1-2 weeks. Post-procedure instructions reviewed and written material given to the patient. Bacilio L Ruth, MD [facility] 11-05-2024 History of Presen t illness Narrative Naomi is a 39 year old who presents today for an endometrial biopsy for abnormal uterine bleeding. test: negative UNIVERSAL PROTOCOL / SAFETY CHECKLIST Procedure to be Performed: EMB Sign In: A Moment of CARE was completed. Appropriate PPE (Personal Protective Equipment) worn by all providers involved with the procedure. Special equipment not required. Patient/Surrogate Stated/Verified: Patient name, Date of , Relevant allergies, and The intended procedure Time Out: Relevant labs, photos, and/or imaging studies have been reviewed. Intended patient and procedure match the source document(s) (e.g. consent, H&P, associated studies [imaging, pathology]) match the intended patient and procedure. Consent obtained and matches the intended procedure. Yes. Correct side/site is not applicable. Medications required for this procedure are verified. are not applicable. Fire risk assessed and is not applicable. Implants: are not applicable. Sign Out: Specimens are all correctly labeled and sent. All instruments, equipment, possible retained foreign bodies are accounted for. Yes. The post-procedure plan of care has been communicated to the patient or surrogate. PROCEDURE: EXTERNAL GENITALIA: Normal in appearance without lesions VAGINA: Normal in appearance without lesions BIOPSY: Speculum placed into the vagina with excellent visualization of the cervix. Cervix cleaned with betadine. Anterior lip of cervix grasped with single toothed tenaculum. Uterus sounded to 8 cm. Pipelle inserted into the uterus without difficulty and endometrial biopsy obtained. Specimen labeled and sent to pathology. Hemostasis achieved. Procedure Summary: Patient tolerated procedure well. ASSESSMENT: abnormal uterine bleeding PLAN: Specimens labeled and sent to Pathology. Will notify patient of results in 1-2 weeks. Post-procedure instructions reviewed and written material given to the patient. Bacilio Miranda MD documented in this encounter [facility] 10-16-2024 Note HNO ID: [id number] Author: BRIAN GLASER MD Service: ? Author Type: Physician Type: Progress Notes Filed: 10/16/2024 23:00 Note Text: The patient presents for requested ultrasound. Full report available in the Imaging tab in Epic. Brian Glaser MD [facility] 09-21-2024 Progress note Formatting of t his note might be different from the original. Send letter about normal pap if she does not have mychart. Bacilio Miranda MD [facility] 09-21-2024 Miscellaneous Notes Send letter about normal pap if she does not have mychart. Bacilio Miranda MD documented in this encounter [facility] 09-20-2024 Note HNO ID: [id number] Author: MALINDA GONZALEZ PA Service: ? Author Type: Physician Subsorter Type: Progress Notes Filed: 09/20/2024 10:19 Note Text: [facility] Subjective Naomi Elder is a 38 year old female. Patient presents with: Sinus Problem: sinus pressure, drainage, fever x 5 days HPI 38-year-old female presents for sinus congestion x 9 days, fever. Patient states she has had sinus congestion for about 9 days. She denies any cough. She does have some postnasal drainage. She states she started getting a fever about 3 to 4 days ago. Last fever was this morning of 101 ?F. She has been taking ibuprofen for symptoms. States she is unable to take decongestants because they make her heart race. She denies any vomiting or diarrhea. No other complaint PAST MEDICAL HISTORY Diagnosis Date Anemia WITH 1ST Antiphospholipid antibody syndrome (HCC) no official syndrome but mildly elevated levels anxiety 9518-9700 anxiety/depression Fibroadenosis of breast Insertion of IUD 06/01/09 mirena Mental disorder Placental abruption, antepartum 10/28/2013 Varicella without mention of complication 8y/o Chickenpox PAST SURGICAL HISTORY Procedure Laterality Date BREAST BIOPSY 05/2005 FIBROADENOMA DELIVERY ONLY 2016 stat for abruption DANDC (MISSED AB 1ST TRIMESTER) 2013 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 06/01/09 mirena AND REMOVAL LAPAROSCOPIC TUBAL LIGATION/RING/CLIP 03/22/16 tubal w/ filshie clips ALLERGIES Patient has no known allergies. MEDICATIONS Norethindrn A-E Estradiol-Iron (BLISOVI 24 FE) 1 mg-20 mcg (24)/75 mg (4) Take 1 tablet by mouth once daily. COMPOUNDED PRESCRIPTION Women's one a day multivitamin amoxicillin-clavulanate potassium (AUGMENTIN) 875-125 mg per tablet Take 1 tablet by mouth two times a day for 5 days. FAMILY HISTORY Problem Relation Age of Onset Asthma Mother Cervical Cancer Mother Hypertension Mother Osteoporosis Mother Psychiatry Mother DEPRESSION Stroke Mother Dementia Mother Arthritis Father Psychiatry Father DEPRESSION Asthma Sister Arthritis Maternal Grandmother Hypertension Maternal Grandmother Stroke Maternal Grandmother Thyroid Maternal Grandmother Colon Cancer Paternal Grandmother other (multiple mylomia) Paternal Grandmother Hypothyroidism Paternal Grandmother Colon Cancer Paternal Grandfather Heart Paternal Grandfather IA Hypertension Paternal Grandfather other (hypothyroidism) Daughter Asthma Maternal Aunt Alzheimer's Disease Other MGGM Social History Tobacco Use Smoking status: Former Current packs/day: 0.00 Average packs/day: 0.5 packs/day for 2.0 years (1.0 ttl pk-yrs) Types: Cigarettes Start date: 05/28/2003 Quit date: 05/28/2005 Years since quittin.3 Smokeless tobacco: Never Vaping Use Vaping status: Never Used Substance Use Topics Alcohol use: No Drug use: No Review of Systems Constitutional: Positive for chills and fever. HENT: Positive for congestion, ear pain, sinus pressure and sinus pain. Negative for sore throat. Respiratory: Negative for cough and shortness of breath. Cardiovascular: Negative for chest pain. Gastrointestinal: Negative for diarrhea and vomiting. Objective BP 132/80 Pulse (!) 126 Temp 37 ?C (98.6 ?F) Resp 16 Wt 71 kg (156 lb 8.4 oz) LMP 08/24/2024 (Approximate) SpO2 98% BMI 24.52 kg/m? Physical Exam Vitals and nursing note reviewed. Constitutional: General: She is not in acute distress. Appearance: Normal appearance. She is not toxic-appearing. HENT: Right Ear: Tympanic membrane and ear canal normal. Left Ear: Tympanic membrane and ear canal normal. Nose: Mucosal edema and congestion present. Right Sinus: Maxillary sinus tenderness and frontal sinus tenderness present. Left Sinus: Maxillary sinus tenderness and frontal sinus tenderness present. Mouth/Throat: Mouth: Mucous membranes are moist. Eyes: Conjunctiva/sclera: Conjunctivae normal. Cardiovascular: Rate and Rhythm: Normal rate and regular rhythm. Pulmonary: Effort: Pulmonary effort is normal. Breath sounds: Normal breath sounds. No wheezing, rhonchi or rales. Skin: General: Skin is warm and dry. Neurological: Mental Status: She is alert. {ASSESSMENT/PLAN: 1. Bacterial sinusitis - ICD9: 473.9, 041.9, ICD10: J32.9, B96.89 - Will begin treatment with Augmentin 875 mg PO BID for 5 days - Supportive care with plenty of fluids, rest, and analgesia prn. Diagnosis and treatment plan were discussed and questions were answered to the patient's satisfaction. Pt acknowledged understanding of concepts and follow up plan. Specific signs and symptoms that would indicate the need for higher level of care were discussed in detail warranting prompt ER evaluation. [facility] History and Record Review Systemic symptoms present included: Fever Differential Diagnoses - Sinusitis is more likely for (more content not included)... [facility] 09-20-2024 History of Presen t illness Narrative [facility] Subjective Naomi Elder is a 38 year old female. Patient presents with: Sinus Problem: sinus pressure, drainage, fever x 5 days HPI 38-year-old female presents for sinus congestion x 9 days, fever. Patient states she has had sinus congestion for about 9 days. She denies any cough. She does have some postnasal drainage. She states she started getting a fever about 3 to 4 days ago. Last fever was this morning of 101 F. She has been taking ibuprofen for symptoms. States she is unable to take decongestants because they make her heart race. She denies any vomiting or diarrhea. No other complaint PAST MEDICAL HISTORY Diagnosis Date Anemia WITH 1ST Antiphospholipid antibody syndrome (HCC) no official syndrome but mildly elevated levels anxiety [id number] anxiety/depression Fibroadenosis of breast Insertion of IUD 06/01/09 mirena Mental disorder Placental abruption, antepartum 10/28/2013 Varicella without mention of complication 8y/o Chickenpox PAST SURGICAL HISTORY Procedure Laterality Date BREAST BIOPSY 05/2005 FIBROADENOMA DELIVERY ONLY 2016 stat for abruption D&C (MISSED AB 1ST TRIMESTER) 2013 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 06/01/09 mirena AND REMOVAL LAPAROSCOPIC TUBAL LIGATION/RING/CLIP 03/22/16 tubal w/ filshie clips ALLERGIES Patient has no known allergies. MEDICATIONS Norethindrn A-E Estradiol-Iron (BLISOVI 24 FE) 1 mg-20 mcg (24)/75 mg (4) Take 1 tablet by mouth once daily. COMPOUNDED PRESCRIPTION Women's one a day multivitamin amoxicillin-clavulanate potassium (AUGMENTIN) 875-125 mg per tablet Take 1 tablet by mouth two times a day for 5 days. FAMILY HISTORY Problem Relation Age of Onset Asthma Mother Cervical Cancer Mother Hypertension Mother Osteoporosis Mother Psychiatry Mother DEPRESSION Stroke Mother Dementia Mother Arthritis Father Psychiatry Father DEPRESSION Asthma Sister Arthritis Maternal Grandmother Hypertension Maternal Grandmother Stroke Maternal Grandmother Thyroid Maternal Grandmother Colon Cancer Paternal Grandmother other (multiple mylomia) Paternal Grandmother Hypothyroidism Paternal Grandmother Colon Cancer Paternal Grandfather Heart Paternal Grandfather IA Hypertension Paternal Grandfather other (hypothyroidism) Daughter Asthma Maternal Aunt Alzheimer's Disease Other MGGM Social History Tobacco Use Smoking status: Former Current packs/day: 0.00 Average packs/day: 0.5 packs/day for 2.0 years (1.0 ttl pk-yrs) Types: Cigarettes Start date: 05/28/2003 Quit date: 05/28/2005 Years since quittin.3 Smokeless tobacco: Never Vaping Use Vaping status: Never Used Substance Use Topics Alcohol use: No Drug use: No Review of Systems Constitutional: Positive for chills and fever. HENT: Positive for congestion, ear pain, sinus pressure and sinus pain. Negative for sore throat. Respiratory: Negative for cough and shortness of breath. Cardiovascular: Negative for chest pain. Gastrointestinal: Negative for diarrhea and vomiting. Objective BP 132/80 Pulse (!) 126 Temp 37 C (98.6 F) Resp 16 Wt 71 kg (156 lb 8.4 oz) LMP 08/24/2024 (Approximate) SpO2 98% BMI 24.52 kg/m Physical Exam Vitals and nursing note reviewed. Constitutional: General: She is not in acute distress. Appearance: Normal appearance. She is not toxic-appearing. HENT: Right Ear: Tympanic membrane and ear canal normal. Left Ear: Tympanic membrane and ear canal normal. Nose: Mucosal edema and congestion present. Right Sinus: Maxillary sinus tenderness and frontal sinus tenderness present. Left Sinus: Maxillary sinus tenderness and frontal sinus tenderness present. Mouth/Throat: Mouth: Mucous membranes are moist. Eyes: Conjunctiva/sclera: Conjunctivae normal. Cardiovascular: Rate and Rhythm: Normal rate and regular rhythm. Pulmonary: Effort: Pulmonary effort is normal. Breath sounds: Normal breath sounds. No wheezing, rhonchi or rales. Skin: General: Skin is warm and dry. Neurological: Mental Status: She is alert. {ASSESSMENT/PLAN: 1. Bacterial sinusitis - ICD9: 473.9, 041.9, ICD10: J32.9, B96.89 - Will begin treatment with Augmentin 875 mg PO BID for 5 days - Supportive care with plenty of fluids, rest, and analgesia prn. Diagnosis and treatment plan were discussed and questions were answered to the patient's satisfaction. Pt acknowledged understanding of concepts and follow up plan. Specific signs and symptoms that would indicate the need for higher level of care were discussed in detail warranting prompt ER evaluation. [facility] History and Record Review Systemic symptoms present included: Fever Differential Diagnoses - Sinusitis is more likely for the following reason(s): suggested by H&P - Pneumonia is less likely for the following reason(s): H&P not suggestive - Otitis media is less likely for the following reason(s): H&P not suggestive Disposition The patient was discharged. OTC Medications were advised: Tylenol/motrin Procedures documented in this encounter [facility] 09-16-2024 History of Presen t illness Narrative Radiology Service Progress Note PATIENT NAME: Naomi Elder DATE OF SERVICE: September 16, 2024 TIME: 8:01 AM PATIENT IDENTITY VERIFICATION COMPLETED USING TWO (2) IDENTIFIERS: Name and Date of confirmed by patient verbally. FALL SCREENING: Has the patient had 2 falls in the last year or 1 fall with injury or currently using an Ambulatory Assistive Device (Walker, Cane, Wheelchair, Crutches, etc.)? No PATIENT GENDER DATA: Assigned female at . status: : No status: NO. PATIENT RELEVANT IMPLANT DATA REVIEWED: Not Applicable PATIENT PRESENTS WITH AN IMPLANTABLE OR ATTACHED RACECOURSE BARRIER ATTENDANT: No RADIOLOGY DEPARTMENT: Mammography PERIPHERAL IV DATA: Not applicable SIGNED BY: James Calderon September 16, 2024 8:01 AM documented in this encounter [facility] 09-16-2024 Note HNO ID: [id number] Author: LYUBOV MOTLEY Mammo Tech Service: ? Author Type: Survey Interviewer Type: Progress Notes Filed: 09/16/2024 08:01 Note Text: Radiology Service Progress Note PATIENT NAME: Naomi Elder DATE OF SERVICE: September 16, 2024 TIME: 8:01 AM PATIENT IDENTITY VERIFICATION COMPLETED USING TWO (2) IDENTIFIERS: Name and Date of confirmed by patient verbally. FALL SCREENING: Has the patient had 2 falls in the last year or 1 fall with injury or currently using an Ambulatory Assistive Device (Walker, Cane, Wheelchair, Crutches, etc.)? No PATIENT GENDER DATA: Assigned female at . status: : No status: NO. PATIENT RELEVANT IMPLANT DATA REVIEWED: Not Applicable PATIENT PRESENTS WITH AN IMPLANTABLE OR ATTACHED RACECOURSE BARRIER ATTENDANT: No RADIOLOGY DEPARTMENT: Mammography PERIPHERAL IV DATA: Not applicable SIGNED BY: James Calderon September 16, 2024 8:01 AM [facility] 09-10-2024 Note Addended by: BACILIO MIRANDA on: 09/10/2024 09:52 AM Modules accepted: Orders [facility] 09-10-2024 Miscellaneous Notes Addended by: BACILIO MIRANDA on: 09/10/2024 09:52 AM Modules accepted: Orders Addended by: RHONA MORRISSEY on: 09/10/2024 09:42 AM Modules accepted: Orders documented in this encounter [facility] 09-10-2024 Note Addended by: Wilfred MORRISSEY on: 09/10/2024 09:42 AM Modules accepted: Orders [facility] 09-10-2024 Note HNO ID: [id number] Author: BACILIO MIRANDA MD Service: ? Author Type: Physician Type: Progress Notes Filed: 09/10/2024 09:33 Note Text: Naomi is a 38 year old who presents for an annual gynecologic exam without complaints. Would like to consider ablation so she can get off hormones. Has had tubal and completed child bearing and on pills to help control heavy menses. Doing well on them for now but would like to consider ablation Still get period: Yes Bleeding amount bothersome: No Bleeding between periods: No Period symptoms: Breast tenderness; Mood change Time with current partner: 20 Number of lifetime partners: 1 control frequency: Never HPV vaccine: No; HPV:negative Last pap smear: 2021 History of abnormal pap: No, all prior PAP smears have been normal Bothersome pelvic pain: No Patient concerns for STD exposure: No. 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; filshie clips 2016 Contraception: Tubal Ligation Menstrual Tracking History Flowsheet RowOffice Visit from 09/10/2024 in OB/GynecologyPeriod Cycle (Days) 45 Period Duration (Days) 3 Menstrual Flow Light PAST MEDICAL HISTORY Diagnosis Date Anemia WITH 1ST Antiphospholipid antibody syndrome (HCC) no official syndrome but mildly elevated levels anxiety [id number] anxiety/depression Fibroadenosis of breast Insertion of IUD 06/01/09 mirena Mental disorder Placental abruption, antepartum 10/28/2013 Varicella without mention of complication 8y/o Chickenpox PAST SURGICAL HISTORY Procedure Laterality Date BREAST BIOPSY 05/2005 FIBROADENOMA DELIVERY ONLY 2016 stat for abruption DANDC (MISSED AB 1ST TRIMESTER) 2013 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 06/01/09 mirena AND REMOVAL LAPAROSCOPIC TUBAL LIGATION/RING/CLIP 03/22/16 tubal w/ filshie clips FAMILY HISTORY Problem Relation Asthma Mother Cervical Cancer Mother Hypertension Mother Osteoporosis Mother Psychiatry Mother DEPRESSION Stroke Mother Dementia Mother Arthritis Father Psychiatry Father DEPRESSION Asthma Sister Arthritis Maternal Grandmother Hypertension Maternal Grandmother Stroke Maternal Grandmother Thyroid Maternal Grandmother Colon Cancer Paternal Grandmother other (multiple mylomia) Paternal Grandmother Hypothyroidism Paternal Grandmother Colon Cancer Paternal Grandfather Heart Paternal Grandfather IA Hypertension Paternal Grandfather other (hypothyroidism) Daughter Asthma Maternal Aunt Alzheimer's Disease Other MGGM SOCIAL HISTORY Social History Tobacco Use Smoking status: Former Current packs/day: 0.00 Average packs/day: 0.5 packs/day for 2.0 years (1.0 ttl pk-yrs) Types: Cigarettes Start date: 05/28/2003 Quit date: 05/28/2005 Years since quittin.3 Smokeless tobacco: Never Vaping Use Vaping status: Never Used Substance Use Topics Alcohol use: No Drug use: No REVIEW OF SYSTEMS Abdomen: No abdominal pain, nausea, vomiting, diarrhea, or constipation. No bloating, early satiety, indigestion, or increased flatulence. Bladder: No dysuria, gross hematuria, urinary frequency, urinary urgency, or incontinence. Breast: No breast lumps, nipple d/c, overlying skin changes, redness or skin retraction. Allergies and current medication updated:Yes SENSITIVE EXAM: The sensitive examination was discussed with the Patient or Patient's Authorized Warehouse Logistics Coordinator. As applicable, any other physician, advance practice provider, medical student, or other health professional student that will be observing or involved in the sensitive examination for educational or training purposes was discussed with the Patient or Authorized Warehouse Logistics Coordinator. The Patient or Authorized Warehouse Logistics Coordinator has agreed to proceed with the sensitive examination. (Sensitive examination includes inspection and/or palpation of the breasts, pelvis, prostate and anorectal regions). EXAM: BP 110/66 Ht 5' 7 (1.70m) Wt 154 lb (69.9kg) LMP 08/24/2024 BMI 24.11 kg/(m2). GENERAL: pleasant, female in no apparent distress HEENT: Normocephalic, atraumatic, mucus membranes moist, and no lesions NECK: Supple, full range of motion, no adenopathy, and thyroid normal DERMATOLOGY: Normal, without lesions, non-icteric, and non-hirsute BREAST: soft, non-tender, symmetric, no dominant mass, normal nipple-areolar complex, no lymphadenopathy, and no nipple discharge CHEST: Normal inspiratory effort ABDOMEN: soft, non-tender, and no masses PELVIC: external genitalia normal, normal Bartholin's glands, urethra, [place]'s glands, no vul (more content not included)... [facility] 09-10-2024 History of Presen t illness Narrative Naomi is a 38 year old who presents for an annual gynecologic exam without complaints. Would like to consider ablation so she can get off hormones. Has had tubal and completed child bearing and on pills to help control heavy menses. Doing well on them for now but would like to consider ablation Still get period: Yes Bleeding amount bothersome: No Bleeding between periods: No Period symptoms: Breast tenderness; Mood change Time with current partner: 20 Number of lifetime partners: 1 control frequency: Never HPV vaccine: No; HPV:negative Last pap smear: 2021 History of abnormal pap: No, all prior PAP smears have been normal Bothersome pelvic pain: No Patient concerns for STD exposure: No. 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; filshie clips 2016 Contraception: Tubal Ligation Menstrual Tracking History Flowsheet RowOffice Visit from 09/10/2024 in OB/GynecologyPeriod Cycle (Days) 44 Period Duration (Days) 3 Menstrual Flow Light PAST MEDICAL HISTORY Diagnosis Date Anemia WITH 1ST Antiphospholipid antibody syndrome (HCC) no official syndrome but mildly elevated levels anxiety [id number] anxiety/depression Fibroadenosis of breast Insertion of IUD 06/01/09 mirena Mental disorder Placental abruption, antepartum 10/28/2013 Varicella without mention of complication 8y/o Chickenpox PAST SURGICAL HISTORY Procedure Laterality Date BREAST BIOPSY 05/2005 FIBROADENOMA DELIVERY ONLY 2016 stat for abruption D&C (MISSED AB 1ST TRIMESTER) 2013 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 06/01/09 mirena AND REMOVAL LAPAROSCOPIC TUBAL LIGATION/RING/CLIP 03/22/16 tubal w/ filshie clips FAMILY HISTORY Problem Relation Asthma Mother Cervical Cancer Mother Hypertension Mother Osteoporosis Mother Psychiatry Mother DEPRESSION Stroke Mother Dementia Mother Arthritis Father Psychiatry Father DEPRESSION Asthma Sister Arthritis Maternal Grandmother Hypertension Maternal Grandmother Stroke Maternal Grandmother Thyroid Maternal Grandmother Colon Cancer Paternal Grandmother other (multiple mylomia) Paternal Grandmother Hypothyroidism Paternal Grandmother Colon Cancer Paternal Grandfather Heart Paternal Grandfather IA Hypertension Paternal Grandfather other (hypothyroidism) Daughter Asthma Maternal Aunt Alzheimer's Disease Other MGGM SOCIAL HISTORY Social History Tobacco Use Smoking status: Former Current packs/day: 0.00 Average packs/day: 0.5 packs/day for 2.0 years (1.0 ttl pk-yrs) Types: Cigarettes Start date: 05/28/2003 Quit date: 05/28/2005 Years since quittin.3 Smokeless tobacco: Never Vaping Use Vaping status: Never Used Substance Use Topics Alcohol use: No Drug use: No REVIEW OF SYSTEMS Abdomen: No abdominal pain, nausea, vomiting, diarrhea, or constipation. No bloating, early satiety, indigestion, or increased flatulence. Bladder: No dysuria, gross hematuria, urinary frequency, urinary urgency, or incontinence. Breast: No breast lumps, nipple d/c, overlying skin changes, redness or skin retraction. Allergies and current medication updated:Yes SENSITIVE EXAM: The sensitive examination was discussed with the Patient or Patient's Authorized Warehouse Logistics Coordinator. As applicable, any other physician, advance practice provider, medical student, or other health professional student that will be observing or involved in the sensitive examination for educational or training purposes was discussed with the Patient or Authorized Warehouse Logistics Coordinator. The Patient or Authorized Warehouse Logistics Coordinator has agreed to proceed with the sensitive examination. (Sensitive examination includes inspection and/or palpation of the breasts, pelvis, prostate and anorectal regions). EXAM: BP 110/66 Ht 5' 7 (1.70m) Wt 154 lb (69.9kg) LMP 08/24/2024 BMI 24.11 kg/(m^2). GENERAL: pleasant, female in no apparent distress HEENT: Normocephalic, atraumatic, mucus membranes moist, and no lesions NECK: Supple, full range of motion, no adenopathy, and thyroid normal DERMATOLOGY: Normal, without lesions, non-icteric, and non-hirsute BREAST: soft, non-tender, symmetric, no dominant mass, normal nipple-areolar complex, no lymphadenopathy, and no nipple discharge CHEST: Normal inspiratory effort ABDOMEN: soft, non-tender, and no masses PELVIC: external genitalia normal, normal Bartholin's glands, urethra, [place]'s glands, no vulvar lesions, no cervical lesions, good vaginal support, physiologic discharge present, normal appearing perineal body and perianal region BIMANUAL: uterus normal size, shape and consistency, no adnexal masses, and non-tender RECTOVAGINAL: deferred. NEURO: alert and oriented x3,exam grossly non-focal EXTREMITIES: normal ASSESSMENT/PLAN: 1) Health maintenance: Pap done with HPV. Mammogram ordered. 2) Contraception: tubal sterilization. Contraceptive options reviewed and information provided. 3) STD screening: Declined STD check. 4) Follow up one year or sooner as needed heavy menses, has been controlled w/ OCPS but would like to be off hormones. Check US and do EMB and schedule ablation if appropriate candidate. Bacilio Miranda MD documented in this encounter [facility] 07-09-2024 Telephone encounter Note Refill request received via [employer]. Patient has annual exam scheduled for 01/2025. Radha Rey RN [facility] 07-09-2024 Miscellaneous Notes Refill request received via [employer]. Patient has annual exam scheduled for 01/2025. Radha Rey RN documented in this encounter [facility] 04-08-2024 Telephone encounter Note Patient has annual on 05/27/24 Requested Prescriptions Pending Prescriptions Disp Refills Norethindrn A-E Estradiol-Iron (BLISOVI 24 FE) 1 mg-20 mcg (24)/75 mg (4) 84 tablet 0 Sig: Take 1 tablet by mouth once daily. Nunu Mcgraw, RN [facility] 04-08-2024 Miscellaneous Notes Patient has annual on 05/27/24 Requested Prescriptions Pending Prescriptions Disp Refills Norethindrn A-E Estradiol-Iron (BLISOVI 24 FE) 1 mg-20 mcg (24)/75 mg (4) 84 tablet 0 Sig: Take 1 tablet by mouth once daily. Nunu Mcgraw RN documented in this encounter [facility] 03-12-2024 Note HNO ID: [id number] Author: ANGELA CHAU APRN.RAW FINISH MILL OPERATOR Service: ? Author Type: Nurse Practitioner Type: Progress Notes Filed: 03/12/2024 09:02 Note Text: CC: Patient presents with: Physical: Annual Physical Immunizations: Flu vaccination HPI Naomi Elder is a 38 year old female who presents today for annual physical exam. Exercise: walks 6-8 miles a day 5 days a week for work. Diet: Watches diet for salt (salty snacks, added salt, processed frozen/canned foods), sugary/sweet snacks, unhealthy fats: Yes Caffeine: none Water intake: 100 ounces or more daily. Concerned with ongoing fatigue, cold intolerance, and gaining weight without lifestyle change. Large family history of thyroid issues. Has had her issues for years and never had evaluated until a friend asked her why since she was always so tired and cold. Does snore but not all the time. Does not wake up gasping for breath or witnessed apnea. Denies recurrent infections, changes in hair/nails, cough, wheezing, or shortness of breath. REVIEW OF SYSTEMS General: no fevers, no chills, no night sweats, no recurrent infections, no change in appetite, no change in energy, and no significant changes in weight Respiratory: no cough, no wheezing, no shortness of breath, no hemoptysis Cardiovascular: no chest pain, no chest pressure, no change in chronic palpitations, and no swelling GI: No nausea, vomiting, or diarrhea : No history of dysuria, frequency or incontinence Psych: phq2 is 0 and gad2 is 1 Endocrine: no polyuria, no polyphagia, and no polydipsia Neurologic: No change in chronic headaches, weakness, numbness,vertigo, dizziness, memory loss, syncope. PAST MEDICAL HISTORY Diagnosis Date Anemia WITH 1ST Antiphospholipid antibody syndrome (HCC) no official syndrome but mildly elevated levels anxiety [id number] anxiety/depression Fibroadenosis of breast Insertion of IUD 06/01/09 mirena Mental disorder Placental abruption, antepartum 10/28/2013 Varicella without mention of complication 8y/o Chickenpox PAST SURGICAL HISTORY Procedure Laterality Date BREAST BIOPSY 05/2005 FIBROADENOMA DELIVERY ONLY 2015 stat for abruption DANDC (MISSED AB 1ST TRIMESTER) 2013 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 06/01/09 mirena AND REMOVAL LAPAROSCOPIC TUBAL LIGATION/RING/CLIP 03/22/16 tubal w/ filshie clips ALLERGIES Patient has no known allergies. MEDICATIONS Norethindrn A-E Estradiol-Iron (BLISOVI 24 FE) 1 mg-20 mcg (24)/75 mg (4) Take 1 tablet by mouth once daily. COMPOUNDED PRESCRIPTION Women's one a day multivitamin FAMILY HISTORY Problem Relation Age of Onset Asthma Mother Cervical Cancer Mother Hypertension Mother Osteoporosis Mother Psychiatry Mother DEPRESSION Stroke Mother Dementia Mother Arthritis Father Psychiatry Father DEPRESSION Asthma Sister Arthritis Maternal Grandmother Hypertension Maternal Grandmother Stroke Maternal Grandmother Thyroid Maternal Grandmother Colon Cancer Paternal Grandmother other (multiple mylomia) Paternal Grandmother Hypothyroidism Paternal Grandmother Colon Cancer Paternal Grandfather Heart Paternal Grandfather IA Hypertension Paternal Grandfather other (hypothyroidism) Daughter Asthma Maternal Aunt Alzheimer's Disease Other MGGM Social History Tobacco Use Smoking status: Former Current packs/day: 0.00 Average packs/day: 0.5 packs/day for 2.0 years (1.0 ttl pk-yrs) Types: Cigarettes Start date: 05/28/2003 Quit date: 05/28/2005 Years since quittin.8 Smokeless tobacco: Never Vaping Use Vaping status: Never Used Substance Use Topics Alcohol use: No Drug use: No PHYSICAL EXAM BP 118/72 Pulse 88 Resp 16 Wt 69.4 kg (153 lb) LMP 02/06/2023 SpO2 98% BMI 23.96 kg/m? General Appearance: well appearing, in no acute distress, alert Pysch: mood and affect broad and appropriate Skin: Skin color, texture, turgor normal for age; Eyes: conjunctiva pink and moist, no icterus, sclera white, non-injected Neck: Thyroid normal size and symmetric without palpable nodules, Neck supple, No adenopathy Lymph nodes: No cervical lymphadenopathy and No supraclavicular lymphadenopathy Lungs: Lungs clear to auscultation. No wheezing, rhonchi, rales. Heart: RRR without murmur, gallop, or rubs. No ectopy Abdomen: Abdomen soft, non-tender. Bowel sounds normal. No masses, organomegaly Neurological: Gait normal. Reflexes normal and symmetric. Sensation intact. Depression Screening Never done Anxiety Screening Never done Influenza Vaccine(1) due on 02/23/2024 Covid-19 Vaccine(3 - 2022- season) due on 03/12/2025 DTaP,Tdap,Td Vaccine(2 - Td or Tdap) due on 10/10/2025 Cervical Cancer Screening due on 02/08/2027 Hepatitis C Screening Completed HIV Screening Completed HPV Vaccine Aged Out ASSESSMENT/PLAN: 1. Annual physical exam - ICD9: V70.0, ICD10: Z00.00 (primary diagnosis) - Counseled on he (more content not included)... [facility] 03-12-2024 History of Presen t illness Narrative CC: Patient presents with: Physical: Annual Physical Immunizations: Flu vaccination HPI Naomi Elder is a 38 year old female who presents today for annual physical exam. Exercise: walks 6-8 miles a day 5 days a week for work. Diet: Watches diet for salt (salty snacks, added salt, processed frozen/canned foods), sugary/sweet snacks, unhealthy fats: Yes Caffeine: none Water intake: 100 ounces or more daily. Concerned with ongoing fatigue, cold intolerance, and gaining weight without lifestyle change. Large family history of thyroid issues. Has had her issues for years and never had evaluated until a friend asked her why since she was always so tired and cold. Does snore but not all the time. Does not wake up gasping for breath or witnessed apnea. Denies recurrent infections, changes in hair/nails, cough, wheezing, or shortness of breath. REVIEW OF SYSTEMS General: no fevers, no chills, no night sweats, no recurrent infections, no change in appetite, no change in energy, and no significant changes in weight Respiratory: no cough, no wheezing, no shortness of breath, no hemoptysis Cardiovascular: no chest pain, no chest pressure, no change in chronic palpitations, and no swelling GI: No nausea, vomiting, or diarrhea : No history of dysuria, frequency or incontinence Psych: phq2 is 0 and gad2 is 1 Endocrine: no polyuria, no polyphagia, and no polydipsia Neurologic: No change in chronic headaches, weakness, numbness,vertigo, dizziness, memory loss, syncope. PAST MEDICAL HISTORY Diagnosis Date Anemia WITH 1ST Antiphospholipid antibody syndrome (HCC) no official syndrome but mildly elevated levels anxiety [id number] anxiety/depression Fibroadenosis of breast Insertion of IUD 06/01/09 mirena Mental disorder Placental abruption, antepartum 10/28/2013 Varicella without mention of complication 8y/o Chickenpox PAST SURGICAL HISTORY Procedure Laterality Date BREAST BIOPSY 05/2005 FIBROADENOMA DELIVERY ONLY 2016 stat for abruption D&C (MISSED AB 1ST TRIMESTER) 2014 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 06/01/09 mirena AND REMOVAL LAPAROSCOPIC TUBAL LIGATION/RING/CLIP 03/22/16 tubal w/ filshie clips ALLERGIES Patient has no known allergies. MEDICATIONS Norethindrn A-E Estradiol-Iron (BLISOVI 24 FE) 1 mg-20 mcg (24)/75 mg (4) Take 1 tablet by mouth once daily. COMPOUNDED PRESCRIPTION Women's one a day multivitamin FAMILY HISTORY Problem Relation Age of Onset Asthma Mother Cervical Cancer Mother Hypertension Mother Osteoporosis Mother Psychiatry Mother DEPRESSION Stroke Mother Dementia Mother Arthritis Father Psychiatry Father DEPRESSION Asthma Sister Arthritis Maternal Grandmother Hypertension Maternal Grandmother Stroke Maternal Grandmother Thyroid Maternal Grandmother Colon Cancer Paternal Grandmother other (multiple mylomia) Paternal Grandmother Hypothyroidism Paternal Grandmother Colon Cancer Paternal Grandfather Heart Paternal Grandfather IA Hypertension Paternal Grandfather other (hypothyroidism) Daughter Asthma Maternal Aunt Alzheimer's Disease Other MGGM Social History Tobacco Use Smoking status: Former Current packs/day: 0.00 Average packs/day: 0.5 packs/day for 2.0 years (1.0 ttl pk-yrs) Types: Cigarettes Start date: 05/28/2003 Quit date: 05/28/2005 Years since quittin.8 Smokeless tobacco: Never Vaping Use Vaping status: Never Used Substance Use Topics Alcohol use: No Drug use: No PHYSICAL EXAM BP 118/72 Pulse 88 Resp 16 Wt 69.4 kg (153 lb) LMP 02/06/2023 SpO2 98% BMI 23.96 kg/m General Appearance: well appearing, in no acute distress, alert Pysch: mood and affect broad and appropriate Skin: Skin color, texture, turgor normal for age; Eyes: conjunctiva pink and moist, no icterus, sclera white, non-injected Neck: Thyroid normal size and symmetric without palpable nodules, Neck supple, No adenopathy Lymph nodes: No cervical lymphadenopathy and No supraclavicular lymphadenopathy Lungs: Lungs clear to auscultation. No wheezing, rhonchi, rales. Heart: RRR without murmur, gallop, or rubs. No ectopy Abdomen: Abdomen soft, non-tender. Bowel sounds normal. No masses, organomegaly Neurological: Gait normal. Reflexes normal and symmetric. Sensation intact. Depression Screening Never done Anxiety Screening Never done Influenza Vaccine(1) due on 02/23/2024 Covid-19 Vaccine(3 - season) due on 03/12/2025 DTaP,Tdap,Td Vaccine(2 - Td or Tdap) due on 10/10/2025 Cervical Cancer Screening due on 02/08/2027 Hepatitis C Screening Completed HIV Screening Completed HPV Vaccine Aged Out ASSESSMENT/PLAN: 1. Annual physical exam - ICD9: V70.0, ICD10: Z00.00 (primary diagnosis) - Counseled on healthy diet and regular exercise - Counseled patient on limiting alcohol intake to 1 drink per day - Follow up for annual exam in one year - LIPID PANEL BASIC - COMPLETE BLOOD COUNT AND DIFFERENTIAL - COMPREHENSIVE METABOLIC PANEL 2. Other fatigue - ICD9: 780.79, ICD10: R53.83 Unsure on cause. If no cause found need to evaluate for possible underlying MARIA VICTORIA and/or other cause Follow up in 6 weeks. - COMPLETE BLOOD COUNT AND DIFFERENTIAL - COMPREHENSIVE METABOLIC PANEL - VITAMIN B12 - VITAMIN D 25 HYDROXY - IRON AND TIBC - FERRITIN - THYROID STIMULATING HORMONE - T3, FREE - T4 FREE/FREE THYROXINE 3. Cold intolerance - ICD9: 780.99, ICD10: R68.89 - THYROID STIMULATING HORMONE - T3, FREE - T4 FREE/FREE THYROXINE 4. Weight gain - ICD9: 783.1, ICD10: R63.5 - THYROID STIMULATING HORMONE - T3, FREE - T4 FREE/FREE THYROXINE 5. History of iron deficiency - ICD9: V12.3, ICD10: Z86.39 - COMPLETE BLOOD COUNT AND DIFFERENTIAL - IRON AND TIBC - FERRITIN 6. Vitamin D deficiency - ICD9: 268.9, ICD10: E55.9 - VITAMIN D 25 HYDROXY 7. Encounter for immunization - ICD9: V03.89, ICD10: Z23 - INFLUENZA VACCINE, AGE 6MO-64YR, TRIVALENT (AFLURIA, FLULAVAL, FLUVIRIN, FLUZONE) Prescription instructions reviewed with patient as applicable. Potential red flag symptoms discussed with the patient. Reviewed appropriate action plan to take if red flag symptoms occur. Patient agreeable to treatment plan. Angela Chau APRN.CNP documented in this encounter [facility] 09-03-2023 History of Presen t illness Narrative CC: Patient presents with: Same Day Appointment: ill- fever, cough, drng- green to clear, sore throat from drng x 6 days HPI Naomi Elder is a 37 year old female with PMH significant for ITP who presents with complaint of persistent URI symtpoms, fevers (Tmax 104 ) sore throat more raw from the drainage, rhinorrhea, post nasal drip, and cough- dry for 6 days. Associated symptoms include facial pain/pressure maxillary, post nasal drip, and ear pressure bilateral crackling. Fevers seemed to improve over the last few days then recurred with temp of 101 this morning. She denies ear pain, wheezing, and shortness of breath. Treatments tried include Acetaminophen, Ibuprofen, and Dayquil with temporary relief of symptoms. REVIEW OF SYSTEMS See HPI All other systems negative. PAST MEDICAL HISTORY Diagnosis Date Anemia WITH 1ST Antiphospholipid antibody syndrome (HCC) no official syndrome but mildly elevated levels anxiety [id number] anxiety/depression Fibroadenosis of breast Insertion of IUD 06/01/09 mirena Mental disorder Placental abruption, antepartum 10/28/2013 Varicella without mention of complication 8y/o Chickenpox PAST SURGICAL HISTORY Procedure Laterality Date BREAST BIOPSY 05/2005 FIBROADENOMA DELIVERY ONLY 2015 stat for abruption D&C (MISSED AB 1ST TRIMESTER) 2013 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 06/01/09 mirena AND REMOVAL LAPAROSCOPIC TUBAL LIGATION/RING/CLIP 03/22/16 tubal w/ filshie clips ALLERGIES Patient has no known allergies. MEDICATIONS Norethindrn A-E Estradiol-Iron (BLISOVI 24 FE) 1 mg-20 mcg (24)/75 mg (4) Take 1 tablet by mouth once daily. COMPOUNDED PRESCRIPTION Women's one a day multivitamin FAMILY HISTORY Problem Relation Age of Onset Asthma Mother Cervical Cancer Mother Hypertension Mother Osteoporosis Mother Psychiatry Mother DEPRESSION Stroke Mother Arthritis Father Psychiatry Father DEPRESSION Asthma Sister Arthritis Maternal Grandmother Hypertension Maternal Grandmother Stroke Maternal Grandmother Colon Cancer Paternal Grandmother other (multiple mylomia) Paternal Grandmother Colon Cancer Paternal Grandfather Heart Paternal Grandfather IA Hypertension Paternal Grandfather other (hypothyroidism) Daughter Asthma Maternal Aunt Alzheimer's Disease Other MGGM Social History Tobacco Use Smoking status: Former Packs/day: 0.50 Years: 2.00 Additional pack years: 0.00 Total pack years: 1.00 Types: Cigarettes Quit date: 05/28/2005 Years since quittin.2 Smokeless tobacco: Never Vaping Use Vaping Use: Never used Substance Use Topics Alcohol use: No Drug use: No PHYSICAL EXAM BP 102/66 (BP Site: Right Arm, BP Position: Sitting, BP Cuff Size: Large Adult) Pulse 107 Temp 37.4 C (99.3 F) Resp 12 Ht 170.2 cm (5' 7) Wt 64.4 kg (142 lb) LMP 02/06/2023 SpO2 100% BMI 22.24 kg/m General Appearance: well appearing, in no acute distress, alert Skin: Skin color, texture, turgor normal for age; Eyes: conjunctiva pink and moist, no icterus, sclera white, non-injected Nose/sinus: Nares normal. Septum midline. Mucosa normal. No drainage. Oropharynx: soft palate, uvula, and tonsils normal Lymph nodes: No cervical lymphadenopathy Lungs: Lungs clear to auscultation. No wheezing, rhonchi, rales. Heart: RRR without murmur, gallop, or rubs. ASSESSMENT/PLAN: 1. Viral URI with cough - ICD9: 465.9, ICD10: J06.9 (primary diagnosis) - Discussed viral etiology and rationale for treatment. Covid and flu testing ordered; Results will be released to [facility] in 24-48 hours. Discussed quarantine, social distancing, hand washing/proper hygiene. Prednisone burst to assist with sinus/congestion symptoms, as well as persistent cough. Discussed medication indications, proper use, and potential adverse effects. All questions and concerns addressed to patient satisfaction. Safety antibiotic rx printed for pt in the case symptoms persist or progress in the next 3-5 days. Discussed medication indications, proper use, and potential adverse effects. All questions and concerns addressed to patient satisfaction. Rest, fluids, OTC medications discussed. - Supportive care with fluids and rest - PREDNISONE 20 MG TABLET - AMOXICILLIN 875 MG-POTASSIUM CLAVULANATE 125 MG TABLET 2. Fever, unspecified fever cause - ICD9: 780.60, ICD10: R50.9 - COVID & INFLUENZA A/B & RSV NAAT, ROUTINE - PREDNISONE 20 MG TABLET - AMOXICILLIN 875 MG-POTASSIUM CLAVULANATE 125 MG TABLET Follow-up as needed Prescription instructions reviewed with patient as applicable. Potential red flag symptoms discussed with the patient. Reviewed appropriate action plan to take if red flag symptoms occur. Patient agreeable to treatment plan. Naomi Edwards PA-C documented in this encounter [facility] 08-30-2023 History of Presen t illness Narrative Subjective HPI Nontoxic-appearing female presents urgent care chief complaint flulike symptoms. Duration of symptoms 2 days. Associate symptoms sore throat nausea vomiting loose stools fever fatigue slight cough. States daughter was sick with similar signs symptoms. Has not used any OTC medications recently. Did take DayQuil earlier this morning. Most bothersome symptom today is pharyngitis. Denies any difficulty swallowing secretions or trismus. Denies any f productive cough chest pain shortness of breath pleuritic pain hemoptysis or rashes. Past medical history prescription medication use and allergies reviewed. BP 112/72 Pulse 101 Temp 37.8 C (100.1 F) Resp 21 Wt 64.3 kg (141 lb 12.1 oz) LMP 02/06/2023 SpO2 96% BMI 22.20 kg/m .Patient presents with: Sore Throat: Fever x 2 days PAST MEDICAL HISTORY Diagnosis Date Anemia WITH 1ST Antiphospholipid antibody syndrome (HCC) no official syndrome but mildly elevated levels anxiety [id number] anxiety/depression Fibroadenosis of breast Insertion of IUD 06/01/09 mirena Mental disorder Placental abruption, antepartum 10/28/2013 Varicella without mention of complication 8y/o Chickenpox PAST SURGICAL HISTORY Procedure Laterality Date BREAST BIOPSY 05/2005 FIBROADENOMA DELIVERY ONLY 2015 stat for abruption D&C (MISSED AB 1ST TRIMESTER) 2013 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 06/01/09 mirena AND REMOVAL LAPAROSCOPIC TUBAL LIGATION/RING/CLIP 03/22/16 tubal w/ filshie clips ALLERGIES Patient has no known allergies. MEDICATIONS Norethindrn A-E Estradiol-Iron (BLISOVI 24 FE) 1 mg-20 mcg (24)/75 mg (4) Take 1 tablet by mouth once daily. COMPOUNDED PRESCRIPTION Women's one a day multivitamin FAMILY HISTORY Problem Relation Age of Onset Asthma Mother Cervical Cancer Mother Hypertension Mother Osteoporosis Mother Psychiatry Mother DEPRESSION Stroke Mother Arthritis Father Psychiatry Father DEPRESSION Asthma Sister Arthritis Maternal Grandmother Hypertension Maternal Grandmother Stroke Maternal Grandmother Colon Cancer Paternal Grandmother other (multiple mylomia) Paternal Grandmother Colon Cancer Paternal Grandfather Heart Paternal Grandfather IA Hypertension Paternal Grandfather other (hypothyroidism) Daughter Asthma Maternal Aunt Alzheimer's Disease Other MGGM Social History Tobacco Use Smoking status: Former Packs/day: 0.50 Years: 2.00 Additional pack years: 0.00 Total pack years: 1.00 Types: Cigarettes Quit date: 05/28/2005 Years since quittin.2 Smokeless tobacco: Never Vaping Use Vaping Use: Never used Substance Use Topics Alcohol use: No Drug use: No Review of Systems Constitutional: Positive for chills, fever and malaise/fatigue. HENT: Positive for congestion and sore throat. Negative for ear discharge, ear pain and sinus pain. Eyes: Negative for blurred vision, pain, discharge and redness. Respiratory: Positive for cough. Negative for hemoptysis, sputum production, shortness of breath, wheezing and stridor. Cardiovascular: Negative for chest pain. Gastrointestinal: Positive for diarrhea, nausea and vomiting. Negative for abdominal pain. Musculoskeletal: Positive for myalgias. Skin: Negative for itching and rash. Neurological: Positive for headaches. Negative for dizziness. Objective Physical Exam Constitutional: General: She is not in acute distress. Appearance: She is not diaphoretic. HENT: Head: Normocephalic. Jaw: No trismus, tenderness, swelling or pain on movement. Right Ear: Tympanic membrane and external ear normal. Left Ear: Tympanic membrane, ear canal and external ear normal. Nose: Nose normal. Mouth/Throat: Mouth: Mucous membranes are moist. Pharynx: Oropharynx is clear. Uvula midline. No pharyngeal swelling, oropharyngeal exudate, posterior oropharyngeal erythema or uvula swelling. Eyes: Conjunctiva/sclera: Conjunctivae normal. Pupils: Pupils are equal, round, and reactive to light. Cardiovascular: Rate and Rhythm: Regular rhythm. Tachycardia present. Heart sounds: Normal heart sounds. Pulmonary: Effort: Pulmonary effort is normal. No tachypnea, accessory muscle usage or respiratory distress. Breath sounds: Normal breath sounds. No stridor. No wheezing, rhonchi or rales. Abdominal: General: There is no distension. Palpations: Abdomen is soft. Tenderness: There is no abdominal tenderness. There is no guarding or rebound. Musculoskeletal: Cervical back: Normal range of motion and neck supple. No edema, erythema, rigidity or tenderness. No pain with movement. Normal range of motion. Lymphadenopathy: Cervical: No cervical adenopathy. Skin: General: Skin is warm and dry. Neurological: Mental Status: She is alert and oriented to person, place, and time. ASSESSMENT/PLAN: 1. Pharyngitis, unspecified etiology - ICD9: 462, ICD10: J02.9 (primary diagnosis) 2. Viral illness - ICD9: 079.99, ICD10: B34.9 Strep test negative. Diagnosed with viral pharyngitis. Suspicious of viral etiology. Did offer flu COVID testing declined testing at this point. Will continue supportive therapies. No evidence of bacterial infection. Patient was educated on supportive therapies. Patient will follow up with primary care provider as needed. Patient was instructed to immediately proceed to emergency room for any new, worsening, or symptoms lasting longer than anticipated. The patient's clinical presentation is otherwise unremarkable at this time. Based on exam and clinical finding, the patient is stable for discharge. Plan of care was discussed with patient. Patient verbalizes understanding and agrees to plan of care. This note was generated using [employer] software. It may contain errors in wording, punctuation, or spelling. Hermann Hill APRN.LOLA documented in this encounter [facility] 02-11-2023 History of Presen t illness Narrative Naomi is a 37 year old who presents for an annual gynecologic exam without complaints. Does feel like bladder doesn't empty as well as it used to. Only gets up once at night. Little bit of soreness left axilla intermittently, no mass. Menses: spotting only on OCPs. 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 Contraception: Tubal Ligation PAST MEDICAL HISTORY Diagnosis Date Anemia WITH 1ST Antiphospholipid antibody syndrome (HCC) no official syndrome but mildly elevated levels anxiety [id number] anxiety/depression Fibroadenosis of breast Insertion of IUD 06/01/09 mirena Mental disorder Placental abruption, antepartum 10/28/2013 Varicella without mention of complication 8y/o Chickenpox PAST SURGICAL HISTORY Procedure Laterality Date BREAST BIOPSY 05/2005 FIBROADENOMA DELIVERY ONLY 2016 stat for abruption D&C (MISSED AB 1ST TRIMESTER) 2013 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 06/01/09 mirena AND REMOVAL LAPAROSCOPIC TUBAL LIGATION/RING/CLIP 03/22/16 tubal w/ filshie clips FAMILY HISTORY Problem Relation Age of Onset Asthma Mother Cervical Cancer Mother Hypertension Mother Osteoporosis Mother Psychiatry Mother DEPRESSION Stroke Mother Arthritis Father Psychiatry Father DEPRESSION Asthma Sister Arthritis Maternal Grandmother Hypertension Maternal Grandmother Stroke Maternal Grandmother Colon Cancer Paternal Grandmother other (multiple mylomia) Paternal Grandmother Colon Cancer Paternal Grandfather Heart Paternal Grandfather IA Hypertension Paternal Grandfather other (hypothyroidism) Daughter Asthma Maternal Aunt Alzheimer's Disease Other MGGM SOCIAL HISTORY Social History Tobacco Use Smoking status: Former Packs/day: 0.50 Years: 2.00 Additional pack years: 0.00 Total pack years: 1.00 Types: Cigarettes Quit date: 05/28/2005 Years since quittin.7 Smokeless tobacco: Never Vaping Use Vaping Use: Never used Substance Use Topics Alcohol use: No Drug use: No REVIEW OF SYSTEMS Abdomen: No abdominal pain, nausea, vomiting, diarrhea, or constipation. No bloating, early satiety, indigestion, or increased flatulence. Bladder: No dysuria, gross hematuria, urinary frequency, urinary urgency, or incontinence. Breast: No breast lumps, nipple d/c, overlying skin changes, redness or skin retraction. Allergies and current medication updated:Yes EXAM: BP 112/62 Ht 5' 7 (1.70m) Wt 137 lb (62.1kg) LMP 02/06/2023 BMI 21.45 kg/(m^2). GENERAL: pleasant, female in no apparent distress HEENT: Normocephalic, atraumatic, mucus membranes moist, and no lesions NECK: Supple, full range of motion, no adenopathy, and thyroid normal DERMATOLOGY: Normal, without lesions, non-icteric, and non-hirsute BREAST: soft, non-tender, symmetric, no dominant mass, normal nipple-areolar complex, no lymphadenopathy, and no nipple discharge CHEST: Normal inspiratory effort ABDOMEN: soft, non-tender, and no masses PELVIC: external genitalia normal, normal Bartholin's glands, urethra, [place]'s glands, no vulvar lesions, no cervical lesions, good vaginal support, physiologic discharge present, normal appearing perineal body and perianal region BIMANUAL: uterus normal size, shape and consistency, no adnexal masses, and non-tender RECTOVAGINAL: deferred. NEURO: alert and oriented x3,exam grossly non-focal EXTREMITIES: normal ASSESSMENT/PLAN: 1) Health maintenance: Pap/HPV up to date. Mammogram age 39 2) Contraception: tubal sterilization. Contraceptive options reviewed and information provided. 3) STD screening: Declined STD check. 4) Follow up one year or sooner as needed doijg well on continuous OCPs. D/w her mastalgia, no masses, monitor for now Bacilio Miranda MD documented in this encounter [facility] 09-19-2022 Miscellaneous Notes Requested Prescriptions Pending Prescriptions Disp Refills Norethindrn A-E Estradiol-Iron (BLISOVI 24 FE) 1 mg-20 mcg (24)/75 mg (4) 28 tablet 3 Sig: Take 1 tablet by mouth once daily. Last annual exam: 02/08/22 Please approve the above prescription(s) to electronically send to pharmacy. Nunu Mcgraw RN documented in this encounter [facility] 04-27-2022 Miscellaneous Notes See pt's refill request pended below. Mary Burroughs LPN documented in this encounter [facility] 04-04-2022 History of Presen t illness Narrative Reason for Visit Patient presents with: Yearly Exam Immunizations: Flu vaccination Naomi Elder is a 36 year old female who presents here today for CPE. Health Maintenance COVID-19 VACCINE(3 - Booster for Pfizer series) DEPRESSION ASSESSMENT HPI Had a bout of depression and anxiety last month. That phase passed for her, she was tired and sleeping a lot. Feeling blah a lot. She notes being on paxil in the past but now she is not on the medication. No feeling of self harm but would like to try the medication. Some stressors having grade issues, daughter had adhd. Her worries never stop. Sometimes it is 12/13 hours days. Patient is on control. Does not have her periods every month No problem-specific Assessment & Plan notes found for this encounter. PAST MEDICAL HISTORY Diagnosis Date Anemia WITH 1ST Antiphospholipid antibody syndrome (HCC) no official syndrome but mildly elevated levels anxiety [id number] anxiety/depression Fibroadenosis of breast Insertion of IUD 06/01/09 mirena Mental disorder Placental abruption, antepartum 10/28/2013 Varicella without mention of complication 8y/o Chickenpox PAST SURGICAL HISTORY Procedure Laterality Date BREAST BIOPSY 05/2005 FIBROADENOMA DELIVERY ONLY 2015 stat for abruption D&C (MISSED AB 1ST TRIMESTER) 2013 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 06/01/09 mirena AND REMOVAL LAPAROSCOPIC TUBAL LIGATION/RING/CLIP 03/22/16 tubal w/ filshie clips FAMILY HISTORY Problem Relation Age of Onset Asthma Mother Cervical Cancer Mother Hypertension Mother Osteoporosis Mother Psychiatry Mother DEPRESSION Stroke Mother Arthritis Father Psychiatry Father DEPRESSION Arthritis Maternal Grandmother Hypertension Maternal Grandmother Stroke Maternal Grandmother Colon Cancer Paternal Grandmother Colon Cancer Paternal Grandfather Heart Paternal Grandfather IA Hypertension Paternal Grandfather Alzheimer's Disease Other MGGM Asthma Sister Asthma Maternal Aunt other (hypothyroidism) Daughter Social History Tobacco Use Smoking status: Former Packs/day: 0.50 Years: 2.00 Pack years: 1.00 Types: Cigarettes Quit date: 05/28/2005 Years since quittin.8 Smokeless tobacco: Never Vaping Use Vaping Use: Never used Substance Use Topics Alcohol use: No Drug use: No Past medical history, appointments, medications, allergies reviewed. Pertinent Lab/Diagnostic Studies are reviewed and discussed today Current Outpatient Medications: Norethindrn A-E Estradiol-Iron (BLISOVI 24 FE) 1 mg-20 mcg (24)/75 mg (4) COMPOUNDED PRESCRIPTION Review of Systems CONSTITUTIONAL: No fevers, chills, nightsweats, unintended weight loss HEENT: Denies frequent or severe heaches, nasal congestion/sinus symptoms, problematic allergy problems. EYES: No diplopia or blurry vision. CARDIOVASCULAR: No chest pain, dyspnea, palpitations, orthopnea, PND, ankle edema. PULM: No dyspnea, unexplained cough. GI: No dysphagia/odynophagia, problematic reflux, constipation, diarrhea, changes in stool habits, hematochezia, melena. : No new urinary complaints, including dysuria, gross hematuria or pyuria. NEURO: No new balance problems, peripheral weakness/paresthesias or numbness of concern. MUSC-SKEL: No new joint pain, swelling, or erythema. PSY: No concerns regarding depression, anxiety or panic. INTEGUMENTARY: No new skin changes (rash, new or changing mole, new growth) Physical Exam BP 110/60 (BP Site: Left Arm, BP Position: Sitting, BP Cuff Size: Regular Adult) Pulse 82 Temp 36.4 C (97.6 F) Resp 12 Ht 170.2 cm (5' 7) Wt 58.5 kg (129 lb) LMP (LMP Unknown) SpO2 96% BMI 20.20 kg/m General appearance: Well appearing, alert, in no acute distress, well-hydrated, well nourished. Skin: Skin color, texture, turgor normal, no suspicious rashes or lesions Head: Normocephalic, no masses, lesions, tenderness or abnormalities Eyes: Anicteric sclera. Pupils are equally round and reactive to light. Extraocular movements are intact. Ears: External ears normal, canals clear Nose/Sinuses: Nares normal, septum midline, mucosa normal, no drainage or sinus tenderness Oropharynx: Lips, mucosa, and tongue normal, teeth and gums normal, oropharynx normal Neck: Supple, no adenopathy; thyroid symmetric, normal size, no bruits Back: Normal exam Lungs: Lungs clear to auscultation. No wheezing, rhonchi, rales Heart: RRR without murmur, gallop, or rubs. No ectopy Abdomen: Normal abdominal exam, Abdomen soft, non-tender. Bowel sounds normal. No masses, organomegaly Extremities: No deformities, edema, skin discoloration, clubbing or cyanosis. Good capillary refill. Musculoskeletal: No joint swelling, deformity, or tenderness Peripheral pulses: Normal Neuro: Gait normal. Reflexes normal and symmetric. Sensation grossly intact. ASSESSMENT/PLAN: 1. Annual physical exam - ICD9: V70.0, ICD10: Z00.00 (primary diagnosis) - Counseled on healthy diet and regular exercise - Calcium intake with supplements or by diet of 1000 mg/day for under 50, 7440-7758 mg/day for 50+ 2. Need for influenza vaccination - ICD9: V04.81, ICD10: Z23 - INFLUENZA VACCINE QUADRIVALENT 6 MO - 64 YRS IM 3. Depression, unspecified depression type - ICD9: 311, ICD10: F32.A - PAROXETINE 10 MG TABLET 4. Anxiety - ICD9: 300.00, ICD10: F41.9 - PAROXETINE 10 MG TABLET Sarmad Siddiqui MD documented in this encounter [facility] 02-08-2022 History of Presen t illness Narrative Naomi is a 36 year old who presents for an annual gynecologic exam without complaints. Menses: not much of a menses on OCPS. 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 Contraception: Tubal Ligation PAST MEDICAL HISTORY Diagnosis Date Anemia WITH 1ST Antiphospholipid antibody syndrome (HCC) no official syndrome but mildly elevated levels anxiety [id number] anxiety/depression Fibroadenosis of breast Insertion of IUD 06/01/09 mirena Mental disorder Placental abruption, antepartum 10/28/2013 Varicella without mention of complication 8y/o Chickenpox PAST SURGICAL HISTORY Procedure Laterality Date BREAST BIOPSY 05/2005 FIBROADENOMA DELIVERY ONLY 2016 stat for abruption D&C (MISSED AB 1ST TRIMESTER) 2013 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 06/01/09 mirena AND REMOVAL LAPAROSCOPIC TUBAL LIGATION/RING/CLIP 03/22/16 tubal w/ filshie clips FAMILY HISTORY Problem Relation Age of Onset Asthma Mother Cervical Cancer Mother Hypertension Mother Osteoporosis Mother Psychiatry Mother DEPRESSION Stroke Mother Arthritis Father Psychiatry Father DEPRESSION Arthritis Maternal Grandmother Hypertension Maternal Grandmother Stroke Maternal Grandmother Colon Cancer Paternal Grandmother Colon Cancer Paternal Grandfather Heart Paternal Grandfather IA Hypertension Paternal Grandfather Alzheimer's Disease Other MGGM Asthma Sister Asthma Maternal Aunt other (hypothyroidism) Daughter SOCIAL HISTORY Social History Tobacco Use Smoking status: Former Packs/day: 0.50 Years: 2.00 Pack years: 1.00 Types: Cigarettes Quit date: 05/28/2005 Years since quittin.7 Smokeless tobacco: Never Vaping Use Vaping Use: Never used Substance Use Topics Alcohol use: No Drug use: No REVIEW OF SYSTEMS Abdomen: No abdominal pain, nausea, vomiting, diarrhea, or constipation. No bloating, early satiety, indigestion, or increased flatulence. Bladder: No dysuria, gross hematuria, urinary frequency, urinary urgency, or incontinence. Breast: No breast lumps, nipple d/c, overlying skin changes, redness or skin retraction. Allergies and current medication updated:Yes EXAM: LMP 12/27/2020 GENERAL: pleasant, female in no apparent distress HEENT: Normocephalic, atraumatic, mucus membranes moist, and no lesions NECK: Supple, full range of motion, no adenopathy, and thyroid normal DERMATOLOGY: Normal, without lesions, non-icteric, and non-hirsute BREAST: soft, non-tender, symmetric, no dominant mass, normal nipple-areolar complex, no lymphadenopathy, and no nipple discharge CHEST: Normal inspiratory effort ABDOMEN: soft, non-tender, and no masses PELVIC: external genitalia normal, normal Bartholin's glands, urethra, [place]'s glands, no vulvar lesions, no cervical lesions, good vaginal support, physiologic discharge present, normal appearing perineal body and perianal region BIMANUAL: uterus normal size, shape and consistency, no adnexal masses, and non-tender RECTOVAGINAL: deferred. NEURO: alert and oriented x3,exam grossly non-focal EXTREMITIES: normal ASSESSMENT/PLAN: 1) Health maintenance: Pap done with HPV. Mammogram starting age 40. 2) Contraception: combined hormonal contraceptives. Contraceptive options reviewed and information provided. 3) STD screening: Declined STD check. 4) Follow up one year or sooner as needed Bacilio Miranda MD documented in this encounter [facility] 12-26-2021 Miscellaneous Notes Patient request for medication is as follows: Pending Prescriptions Disp Refills BLISOVI 24 FE 1 MG-20 MCG (24)/75 MG (4) TABLET 28 tablet 1 Sig: Take 1 tablet by mouth once daily. RUDDY: No Next annual exam: 02/06/22 Please approve the above prescription(s) to electronically send to pharmacy. Nunu Mcgraw RN documented in this encounter [facility] 09-16-2021 Instructions Candi Rao APRN.CNP - 09/16/2021 11:22 AM EDT ASSESSMENT/PLAN: 1. Sore throat - ICD9: 462, ICD10: J02.9 (primary diagnosis) - suspect viral - Alere Strep Test NEGATIVE, no culture pending - Discussed supportive care treatment with fluids, rest and analgesia. - STREP A MOLECULAR (POC) 2. Viral illness - ICD9: 079.99, ICD10: B34.9 - Discussed viral etiology and rationale for treatment. - Symptomatic treatment with prn analgesia - Supportive care with fluids and rest - COVID WITH FLUA+B, ROUTINE 3. Cough - ICD9: 786.2, ICD10: R05.9 - XR CHEST 2V FRONTAL/LAT. My reading: negative. Radiologist IMPRESSION: No acute radiographic abnormality. Pharmacy Coordinator: SAMANTHA Transcribe Date/Time: Sep 16 2021 11:09A Dictated by : MIGUEL ANGEL CABRAL MD 4. Post-viral cough syndrome - ICD9: 786.2, ICD10: R05.8 - PREDNISONE 20 MG TABLET - judy becerra as prescribed. - Follow-up with your PCP in 3-5 days if symptoms have not improved or sooner if symptoms worsen - Discussed red flags and need for immediate medical evaluation if any occur. - Discussed supportive care treatment with fluids, rest and analgesia. - Discussed expected course of illness Candi Rao APRN.LOLA documented in this encounter [facility] 09-16-2021 History of Presen t illness Narrative Radiology Service Progress Note PATIENT NAME: Naomi Elder DATE OF SERVICE: September 16, 2021 TIME: 10:59 AM PATIENT IDENTITY VERIFICATION COMPLETED USING TWO (2) IDENTIFIERS: Name and Date of confirmed by patient verbally. FALL SCREENING: Has the patient had 2 falls in the last year or 1 fall with injury or currently using an Ambulatory Assistive Device (Walker, Cane, Wheelchair, Crutches, etc.)? No PATIENT GENDER DATA: Female. status: : No status: NO. PATIENT RELEVANT IMPLANT DATA REVIEWED: Not Applicable RADIOLOGY DEPARTMENT: General X-ray: Exam(s) Completed: Chest X-Ray PERIPHERAL IV DATA: Not applicable SIGNED BY: RT Sean(R) September 16, 2021 10:59 AM documented in this encounter [facility] 09-16-2021 History of Presen t illness Narrative Subjective HPI Naomi Elder is a 35 year old female who presents with cough, fever, congestion. Feeling very tired by the end of the day. Daughter was recently diagnosed with influenza A but Naomi has been having symptoms for one to two weeks. Review of Systems Constitutional: Positive for fever and malaise/fatigue. HENT: Positive for congestion and sore throat. Respiratory: Positive for cough and sputum production. Cardiovascular: Negative for chest pain. BP 120/68 Pulse 112 Temp 36.9 C (98.4 F) Resp 18 Wt 57.9 kg (127 lb 9.6 oz) LMP 12/27/2020 (Approximate) SpO2 99% BMI 19.40 kg/m PAST MEDICAL HISTORY Diagnosis Date Anemia WITH 1ST Antiphospholipid antibody syndrome (HCC) no official syndrome but mildly elevated levels anxiety [id number] anxiety/depression Fibroadenosis of breast Insertion of IUD 06/01/09 mirena Mental disorder Placental abruption, antepartum 10/28/2013 Varicella without mention of complication 8y/o Chickenpox PAST SURGICAL HISTORY Procedure Laterality Date BREAST BIOPSY 05/2005 FIBROADENOMA DELIVERY ONLY 2016 stat for abruption D&C (MISSED AB 1ST TRIMESTER) 2013 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 06/01/09 mirena AND REMOVAL LAPAROSCOPIC TUBAL LIGATION/RING/CLIP 03/22/16 tubal w/ filshie clips ALLERGIES Patient has no known allergies. MEDICATIONS Norethindrn A-E Estradiol-Iron (BLISOVI 24 FE) 1 mg-20 mcg (24)/75 mg (4) Take 1 tablet by mouth once daily. COMPOUNDED PRESCRIPTION Women's one a day multivitamin FAMILY HISTORY Problem Relation Age of Onset Asthma Mother Cervical Cancer Mother Hypertension Mother Osteoporosis Mother Psychiatry Mother DEPRESSION Stroke Mother Arthritis Father Psychiatry Father DEPRESSION Arthritis Maternal Grandmother Hypertension Maternal Grandmother Stroke Maternal Grandmother Colon Cancer Paternal Grandmother Colon Cancer Paternal Grandfather Heart Paternal Grandfather IA Hypertension Paternal Grandfather Alzheimer's Disease Other MGGM Asthma Sister Asthma Maternal Aunt other (hypothyroidism) Daughter Social History Tobacco Use Smoking status: Former Smoker Packs/day: 0.50 Years: 2.00 Pack years: 1.00 Types: Cigarettes Quit date: 05/28/2005 Years since quittin.3 Smokeless tobacco: Never Used Vaping Use Vaping Use: Never used Substance Use Topics Alcohol use: No Drug use: No Objective Physical Exam Vitals and nursing note reviewed. Constitutional: Appearance: Normal appearance. HENT: Right Ear: Tympanic membrane, ear canal and external ear normal. Left Ear: Tympanic membrane, ear canal and external ear normal. Nose: Nose normal. Mouth/Throat: Mouth: Mucous membranes are moist. Pharynx: Uvula midline. Posterior oropharyngeal erythema (slight) present. No oropharyngeal exudate. Cardiovascular: Rate and Rhythm: Regular rhythm. Tachycardia present. Heart sounds: Normal heart sounds. Pulmonary: Effort: Pulmonary effort is normal. No respiratory distress. Breath sounds: Normal breath sounds. No wheezing or rales. Musculoskeletal: Cervical back: Neck supple. Lymphadenopathy: Cervical: No cervical adenopathy. Skin: General: Skin is warm and dry. Findings: No erythema or rash. Neurological: Mental Status: She is alert. ASSESSMENT/PLAN: 1. Sore throat - ICD9: 462, ICD10: J02.9 (primary diagnosis) - suspect viral - Alere Strep Test NEGATIVE, no culture pending - Discussed supportive care treatment with fluids, rest and analgesia. - STREP A MOLECULAR (POC) 2. Viral illness - ICD9: 079.99, ICD10: B34.9 - Discussed viral etiology and rationale for treatment. - Symptomatic treatment with prn analgesia - Supportive care with fluids and rest - COVID WITH FLUA+B, ROUTINE 3. Cough - ICD9: 786.2, ICD10: R05.9 - XR CHEST 2V FRONTAL/LAT. My reading: negative. Radiologist IMPRESSION: No acute radiographic abnormality. Pharmacy Coordinator: SAMANTHA Transcribe Date/Time: Sep 16 2021 11:09A Dictated by : MIGUEL ANGEL CABRAL MD 4. Post-viral cough syndrome - ICD9: 786.2, ICD10: R05.8 - PREDNISONE 20 MG TABLET - tessaladen perles as prescribed. - Follow-up with your PCP in 3-5 days if symptoms have not improved or sooner if symptoms worsen - Discussed red flags and need for immediate medical evaluation if any occur. - Discussed supportive care treatment with fluids, rest and analgesia. - Discussed expected course of illness Candi Rao APRN.LOLA documented in this encounter [facility] 04-11-2021 History of Presen t illness Narrative Radiology Service Progress Note PATIENT NAME: Naomi Elder DATE OF SERVICE: April 11, 2021 TIME: 3:14 PM PATIENT IDENTITY VERIFICATION COMPLETED USING TWO (2) IDENTIFIERS: Name and Date of confirmed by patient verbally. FALL SCREENING: Has the patient had 2 falls in the last year or 1 fall with injury or currently using an Ambulatory Assistive Device (Walker, Cane, Wheelchair, Crutches, etc.)? No PATIENT GENDER DATA: Female. status: : No status: NO. PATIENT RELEVANT IMPLANT DATA REVIEWED: Not Applicable RADIOLOGY DEPARTMENT: General X-ray: Exam(s) Completed: Upper Extremity X-Ray(s): Wrist, right PERIPHERAL IV DATA: Not applicable SIGNED BY: RT Emerson(R) April 11, 2021 3:14 PM documented in this encounter [facility] 02-16-2016 History of Past i llness Narrative Problem Noted Date Resolved Date Gestational thrombocytopenia 02/16/201612/2015 Two vessel umbilical cord 10/11/20152015 Rubella non-immune status, antepartum 06/21/2015 01/05/2016 Supervision of other high risk pregnancies, thir d trimester 06/03/2015 01/05/2016 Nausea/vomiting in 06/03/2015 with poor obstetric history 06/03/2015 01/05/2016 Overview: June 03, 2015 H/o second trimester abruption and loss. 2 full term infants SGA/IUGR. Check US for growth throughout . testing 3rd trimester. This is first she is on lovenox. 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 Dr. Umana recommends monthly cbc. Bacilio Miranda MD Will see Dr. Umana monthly during for ITP. Ruby Hatfield, [employer] Rubella non-immune status, antepartum 08/18/2013 08/20/2014 First trimester bleeding 08/17/2013 014 Overview: 10/27/13 - had increased VB last night that has stopped, formal u/s - KJ 08/17/2013She has been seen for spotting in by Dr Bacilio Miranda. She had an ultrasound done by Dr. Bacilio Miranda that revealed an intrauterine with + cardiac activity . She continues to have spotting on and off. She denies any spotting today. She denies any cramping, except for some cramping she experienced last week when she was constipated. I told patient that I had spoken with Dr. Miranda and she is to call/come in any time if she wants a followup ultrasound before her August 24 appointment. She is advised to call/come in if she develops any further bleeding, the development of pain, or PRN problems. TKRN History of depression 08/17/2013 08/20/2014 Overview: 08/17/2013 Pt has a history of anxiety depression since age 11. She has been off medication for 5 years.She was on either Paxil or Prozac from ages [age] for depression related to parents divorce and her uncle passing away. She denies any depression now. She was hospitalized at [facility] for overdose for 1 week at age 11. She denies any suicidal thoughts or tendencies since then. Discussed increased risks of depression during and and importance of reporting the development or worsening of symptoms should they occur.TKRN Nausea & vomiting 08/17/2013 01/15/2014 Overview: 08/17/2013 Patient is complaining of nausea in . Advised patient to call/come in if she is unable to keep any food or fluids down in a 24-hour period. Patient states that the vitamin B6 is working well to alleviate her symptoms. TKRN Supervision of other normal 10/21/2008 05/04/2009 COMPLICATIONS ANEMIA 03/02/2006 1 07/01/2005 Threatened , antepartum 09/17/2005 05/01/2006 Antiphospholipid antibody syndrome 09/05/2015 documented as of this encounter (statuses as of 09/16/2021) [facility] History of Past illness Narrative* Problem Noted Date Resolved Date Gestational thrombocytopenia 02/16/201612/2015 Two vessel umbilical cord 10/11/20152015 Rubella non-immune status, antepartum 06/21/2015 01/05/2016 Supervision of other high risk pregnancies, thir d trimester 06/03/2015 01/05/2016 Nausea/vomiting in 06/03/2015 with poor obstetric history 06/03/2015 01/05/2016 Overview: June 03, 2015 H/o second trimester abruption and loss. 2 full term infants SGA/IUGR. Check US for growth throughout . testing 3rd trimester. This is first she is on lovenox. 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 Dr. Umana recommends monthly cbc. Bacilio Mrianda MD Will see Dr. Umana monthly during for ITP. Ruby Hatfield, [employer] Rubella non-immune status, antepartum 08/18/2013 08/20/2014 First trimester bleeding 08/17/2013 014 Overview: 10/27/13 - had increased VB last night that has stopped, formal u/s - KJ 08/17/2013She has been seen for spotting in by Dr Bacilio Miranda. She had an ultrasound done by Dr. Bacilio Miranda that revealed an intrauterine with + cardiac activity . She continues to have spotting on and off. She denies any spotting today. She denies any cramping, except for some cramping she experienced last week when she was constipated. I told patient that I had spoken with Dr. Miranda and she is to call/come in any time if she wants a followup ultrasound before her August 24 appointment. She is advised to call/come in if she develops any further bleeding, the development of pain, or PRN problems. TKRN History of depression 08/17/2013 08/20/2014 Overview: 08/17/2013 Pt has a history of anxiety depression since age 11. She has been off medication for 5 years.She was on either Paxil or Prozac from ages [age] for depression related to parents divorce and her uncle passing away. She denies any depression now. She was hospitalized at [facility] for overdose for 1 week at age 11. She denies any suicidal thoughts or tendencies since then. Discussed increased risks of depression during and and importance of reporting the development or worsening of symptoms should they occur.TKRN Nausea & vomiting 08/17/2013 01/15/2014 Overview: 08/17/2013 Patient is complaining of nausea in . Advised patient to call/come in if she is unable to keep any food or fluids down in a 24-hour period. Patient states that the vitamin B6 is working well to alleviate her symptoms. 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 2 full term infants SGA/IUGR. Check US for growth throughout . testing 3rd trimester. This is first she is on lovenox. 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 Dr. Umana recommends monthly cbc. Bacilio Miranda MD Will see Dr. Umana monthly during for ITP. Ruby Hatfield, [employer] Rubella non-immune status, antepartum 08/18/2013 08/20/2014 First trimester bleeding 08/17/2013 014 Overview: 10/27/13 - had increased VB last night that has stopped, formal u/s - KJ 08/17/2013She has been seen for spotting in by Dr Bacilio Miranda. She had an ultrasound done by Dr. Bacilio Miranda that revealed an intrauterine with + cardiac activity . She continues to have spotting on and off. She denies any spotting today. She denies any cramping, except for some cramping she experienced last week when she was constipated. I told patient that I had spoken with Dr. Miranda and she is to call/come in any time if she wants a followup ultrasound before her August 24 appointment. She is advised to call/come in if she develops any further bleeding, the development of pain, or PRN problems. TKRN History of depression 08/17/2013 08/20/2014 Overview: 08/17/2013 Pt has a history of anxiety depression since age 11. She has been off medication for 5 years.She was on either Paxil or Prozac from ages [age] for depression related to parents divorce and her uncle passing away. She denies any depression now. She was hospitalized at [facility] for overdose for 1 week at age 11. She denies any suicidal thoughts or tendencies since then. Discussed increased risks of depression during and and importance of reporting the development or worsening of symptoms should they occur.TKRN Nausea & vomiting 08/17/2013 01/15/2014 Overview: 08/17/2013 Patient is complaining of nausea in . Advised patient to call/come in if she is unable to keep any food or fluids down in a 24-hour period. Patient states that the vitamin B6 is working well to alleviate her symptoms. 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 2 full term infants SGA/IUGR. Check US for growth throughout . testing 3rd trimester. This is first she is on lovenox. 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 Dr. Umana recommends monthly cbc. Bacilio Miranda MD Will see Dr. Umana monthly during for ITP. Ruby Hatfield, [employer] Rubella non-immune status, antepartum 08/18/2013 08/20/2014 First trimester bleeding 08/17/2013 014 Overview: 10/27/13 - had increased VB last night that has stopped, formal u/s - KJ 08/17/2013She has been seen for spotting in by Dr Bacilio Miranda. She had an ultrasound done by Dr. Bacilio Miranda that revealed an intrauterine with + cardiac activity . She continues to have spotting on and off. She denies any spotting today. She denies any cramping, except for some cramping she experienced last week when she was constipated. I told patient that I had spoken with Dr. Miranda and she is to call/come in any time if she wants a followup ultrasound before her August 24 appointment. She is advised to call/come in if she develops any further bleeding, the development of pain, or PRN problems. TKRN History of depression 08/17/2013 08/20/2014 Overview: 08/17/2013 Pt has a history of anxiety depression since age 11. She has been off medication for 5 years.She was on either Paxil or Prozac from ages [age] for depression related to parents divorce and her uncle passing away. She denies any depression now. She was hospitalized at [facility] for overdose for 1 week at age 11. She denies any suicidal thoughts or tendencies since then. Discussed increased risks of depression during and and importance of reporting the development or worsening of symptoms should they occur.TKRN Nausea & vomiting 08/17/2013 01/15/2014 Overview: 08/17/2013 Patient is complaining of nausea in . Advised patient to call/come in if she is unable to keep any food or fluids down in a 24-hour period. Patient states that the vitamin B6 is working well to alleviate her symptoms. 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 2 full term infants SGA/IUGR. Check US for growth throughout . testing 3rd trimester. This is first she is on lovenox. 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 Dr. Umana recommends monthly cbc. Bacilio Miranda MD Will see Dr. Umana monthly during for ITP. Ruby Hatfield, [employer] Rubella non-immune status, antepartum 08/18/2013 08/20/2014 First trimester bleeding 08/17/2013 014 Overview: 10/27/13 - had increased VB last night that has stopped, formal u/s - KJ 08/17/2013She has been seen for spotting in by Dr Bacilio Miranda. She had an ultrasound done by Dr. Bacilio Miranda that revealed an intrauterine with + cardiac activity . She continues to have spotting on and off. She denies any spotting today. She denies any cramping, except for some cramping she experienced last week when she was constipated. I told patient that I had spoken with Dr. Miranda and she is to call/come in any time if she wants a followup ultrasound before her August 24 appointment. She is advised to call/come in if she develops any further bleeding, the development of pain, or PRN problems. TKRN History of depression 08/17/2013 08/20/2014 Overview: 08/17/2013 Pt has a history of anxiety depression since age 11. She has been off medication for 5 years.She was on either Paxil or Prozac from ages [age] for depression related to parents divorce and her uncle passing away. She denies any depression now. She was hospitalized at [facility] for overdose for 1 week at age 11. She denies any suicidal thoughts or tendencies since then. Discussed increased risks of depression during and and importance of reporting the development or worsening of symptoms should they occur.TKRN Nausea & vomiting 08/17/2013 01/15/2014 Overview: 08/17/2013 Patient is complaining of nausea in . Advised patient to call/come in if she is unable to keep any food or fluids down in a 24-hour period. Patient states that the vitamin B6 is working well to alleviate her symptoms. 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 2 full term infants SGA/IUGR. Check US for growth throughout . testing 3rd trimester. This is first she is on lovenox. 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 Dr. Umana recommends monthly cbc. Bacilio Miranda MD Will see Dr. Umana monthly during for ITP. Ruby Hatfield, LOLA Rubella non-immune status, antepartum 08/18/2013 08/20/2014 First trimester bleeding 08/17/2013 014 Overview: 10/27/13 - had increased VB last night that has stopped, formal u/s - KJ 08/17/2013She has been seen for spotting in by Dr Bacilio Miranda. She had an ultrasound done by Dr. Bacilio Miranda that revealed an intrauterine with + cardiac activity . She continues to have spotting on and off. She denies any spotting today. She denies any cramping, except for some cramping she experienced last week when she was constipated. I told patient that I had spoken with Dr. Miranda and she is to call/come in any time if she wants a followup ultrasound before her August 24 appointment. She is advised to call/come in if she develops any further bleeding, the development of pain, or PRN problems. TKRN History of depression 08/17/2013 08/20/2014 Overview: 08/17/2013 Pt has a history of anxiety depression since age 11. She has been off medication for 5 years.She was on either Paxil or Prozac from ages [age] for depression related to parents divorce and her uncle passing away. She denies any depression now. She was hospitalized at [facility] for overdose for 1 week at age 11. She denies any suicidal thoughts or tendencies since then. Discussed increased risks of depression during and and importance of reporting the development or worsening of symptoms should they occur.TKRN Nausea & vomiting 08/17/2013 01/15/2014 Overview: 08/17/2013 Patient is complaining of nausea in . Advised patient to call/come in if she is unable to keep any food or fluids down in a 24-hour period. Patient states that the vitamin B6 is working well to alleviate her symptoms. TKRN Supervision of other normal 10/21/2008 05/04/2009 COMPLICATIONS ANEMIA 03/02/2006 1 07/01/2005 Threatened , antepartum 09/17/2005 05/01/2006 Antiphospholipid antibody syndrome 09/05/2015 documented as of this encounter (statuses as of 09/19/2022) [facility] History of Past illness Narrative* Problem Noted Date Diagnosed Date Resolved Date Gestational thrombocytopenia 02/16/2016 03/30/2016 Two vessel umbilical cord 10/11/2015 Rubella non-immune status, antepartum 06/21/2015 01/05/2016 Supervision of other high ri sk pregnancies, third trimester 06/03/2015 01/05/2016 Nausea/vomiting in 06/03/2015 09/05/2015 with poor obstetric history 06/03/2015 01/05/2016 Overview: June 03, 2015 H/o second trimester abruption and loss. 2 full term infants SGA/IUGR. Check US for growth throughout . testing 3rd trimester. This is first she is on lovenox. Bacilio Miranda MD Threatened 05/23/2015 01/05/20 16 Overview: Ordered serial hcgs May 23, 2015 Kavitha Black MD 7.7 mm GS with yolk sac seen small subchorionic hemorrhage cervix closed Subchorionic hemorrhage 05/23/201505/24 Placental abruption, antepartum 10/28/2013 01/15/2014 Overview: 10/28/13 - u/s today showed ARIA of 2, feels this likely represents a chronic abruption, await formal read, needs appt with in 2 weeks - KJ Thrombocytopenia complicating 08/19/2013 01/15/2014 Overview: PLTS: 109 consult with hematology ordered August 31, 2013 Likely ITP, possibly gest. thrombocytopenia. Dr. Umana recommends monthly cbc. Bacilio Miranda MD Will see Dr. Umana monthly during for ITP. Ruby Hatfield, [employer] Rubella non-immune status, antepartum 08/18/2013 08/20/2014 First trimester bleeding 08/17/2013 Overview: 10/27/13 - had increased VB last night that has stopped, formal u/s - KJ 08/17/2013She has been seen for spotting in by Dr Bacilio Miranda. She had an ultrasound done by Dr. Bacilio Miranda that revealed an intrauterine with + cardiac activity . She continues to have spotting on and off. She denies any spotting today. She denies any cramping, except for some cramping she experienced last week when she was constipated. I told patient that I had spoken with Dr. Miranda and she is to call/come in any time if she wants a followup ultrasound before her August 24 appointment. She is advised to call/come in if she develops any further bleeding, the development of pain, or PRN problems. TKRN History of depression 08/17/20132014 Overview: 08/17/2013 Pt has a history of anxiety depression since age 11. She has been off medication for 5 years.She was on either Paxil or Prozac from ages [age] for depression related to parents divorce and her uncle passing away. She denies any depression now. She was hospitalized at [facility] for overdose for 1 week at age 11. She denies any suicidal thoughts or tendencies since then. Discussed increased risks of depression during and and importance of reporting the development or worsening of symptoms should they occur.TKRN Nausea & vomiting 08/17/2013 01/15/2014 Overview: 08/17/2013 Patient is complaining of nausea in . Advised patient to call/come in if she is unable to keep any food or fluids down in a 24-hour period. Patient states that the vitamin B6 is working well to alleviate her symptoms. TKRN Supervision of other normal 10/21/2008 05/04/2009 COMPLICATIONS ANEMIA 03/02/2006 05/01/2006 Threatened , antepartum 09/17/2005 05/01/2006 Antiphospholipid antibody syndrome 09/05/2015 documented as of this encounter (statuses as of 02/11/2023) [facility] History of Past illness Narrative* Problem Noted Date Diagnosed Date Resolved Date Gestational thrombocytopenia 02/16/2016 03/30/2016 Two vessel umbilical cord 10/11/2015 Rubella non-immune status, antepartum 06/21/2015 01/05/2016 Supervision of other high ri sk pregnancies, third trimester 06/03/2015 01/05/2016 Nausea/vomiting in 06/03/2015 09/05/2015 with poor obstetric history 06/03/2015 01/05/2016 Overview: June 03, 2015 H/o second trimester abruption and loss. 2 full term infants SGA/IUGR. Check US for growth throughout . testing 3rd trimester. This is first she is on lovenox. Bacilio Miranda MD Threatened 05/23/2015 01/05/20 16 Overview: Ordered serial hcgs May 23, 2015 Kavitha Black MD 7.7 mm GS with yolk sac seen small subchorionic hemorrhage cervix closed Subchorionic hemorrhage 05/23/201505/24 Placental abruption, antepartum 10/28/2013 01/15/2014 Overview: 10/28/13 - u/s today showed ARIA of 2, feels this likely represents a chronic abruption, await formal read, needs appt with in 2 weeks - KJ Thrombocytopenia complicating 08/19/2013 01/15/2014 Overview: PLTS: 109 consult with hematology ordered August 31, 2013 Likely ITP, possibly gest. thrombocytopenia. Dr. Umana recommends monthly cbc. Bacilio Miranda MD Will see Dr. Umana monthly during for ITP. Ruby Hatfield, [employer] Rubella non-immune status, antepartum 08/18/2013 08/20/2014 First trimester bleeding 08/17/2013 Overview: 10/27/13 - had increased VB last night that has stopped, formal u/s - KJ 08/17/2013She has been seen for spotting in by Dr Bacilio Miranda. She had an ultrasound done by Dr. Bacilio Miranda that revealed an intrauterine with + cardiac activity . She continues to have spotting on and off. She denies any spotting today. She denies any cramping, except for some cramping she experienced last week when she was constipated. I told patient that I had spoken with Dr. Miranda and she is to call/come in any time if she wants a followup ultrasound before her August 24 appointment. She is advised to call/come in if she develops any further bleeding, the development of pain, or PRN problems. TKRN History of depression 08/17/20132014 Overview: 08/17/2013 Pt has a history of anxiety depression since age 11. She has been off medication for 5 years.She was on either Paxil or Prozac from ages [age] for depression related to parents divorce and her uncle passing away. She denies any depression now. She was hospitalized at [facility] for overdose for 1 week at age 11. She denies any suicidal thoughts or tendencies since then. Discussed increased risks of depression during and and importance of reporting the development or worsening of symptoms should they occur.TKRN Nausea & vomiting 08/17/2013 01/15/2014 Overview: 08/17/2013 Patient is complaining of nausea in . Advised patient to call/come in if she is unable to keep any food or fluids down in a 24-hour period. Patient states that the vitamin B6 is working well to alleviate her symptoms. TKRN Supervision of other normal 10/21/2008 05/04/2009 COMPLICATIONS ANEMIA 03/02/2006 05/01/2006 Threatened , antepartum 09/17/2005 05/01/2006 Antiphospholipid antibody syndrome 09/05/2015 documented as of this encounter (statuses as of 08/30/2023) [facility] History of Past illness Narrative* Problem Noted Date Diagnosed Date Resolved Date Gestational thrombocytopenia 02/16/2016 03/30/2016 Two vessel umbilical cord 10/11/2015 Rubella non-immune status, antepartum 06/21/2015 01/05/2016 Supervision of other high ri sk pregnancies, third trimester 06/03/2015 01/05/2016 Nausea/vomiting in 06/03/2015 09/05/2015 with poor obstetric history 06/03/2015 01/05/2016 Overview: June 03, 2015 H/o second trimester abruption and loss. 2 full term infants SGA/IUGR. Check US for growth throughout . testing 3rd trimester. This is first she is on lovenox. Bacilio Miranda MD Threatened 05/23/2015 01/05/20 16 Overview: Ordered serial hcgs May 23, 2015 Kavitha Black MD 7.7 mm GS with yolk sac seen small subchorionic hemorrhage cervix closed Subchorionic hemorrhage 05/23/201505/24 Placental abruption, antepartum 10/28/2013 01/15/2014 Overview: 10/28/13 - u/s today showed ARIA of 2, feels this likely represents a chronic abruption, await formal read, needs appt with in 2 weeks - KJ Thrombocytopenia complicating 08/19/2013 01/15/2014 Overview: PLTS: 109 consult with hematology ordered August 31, 2013 Likely ITP, possibly gest. thrombocytopenia. Dr. Umana recommends monthly cbc. Bacilio Miranda MD Will see Dr. Umana monthly during for ITP. Ruby Hatfield, [employer] Rubella non-immune status, antepartum 08/18/2013 08/20/2014 First trimester bleeding 08/17/2013 Overview: 10/27/13 - had increased VB last night that has stopped, formal u/s - KJ 08/17/2013She has been seen for spotting in by Dr Bacilio Miranda. She had an ultrasound done by Dr. Bacilio Miranda that revealed an intrauterine with + cardiac activity . She continues to have spotting on and off. She denies any spotting today. She denies any cramping, except for some cramping she experienced last week when she was constipated. I told patient that I had spoken with Dr. Miranda and she is to call/come in any time if she wants a followup ultrasound before her August 24 appointment. She is advised to call/come in if she develops any further bleeding, the development of pain, or PRN problems. TKRN History of depression 08/17/20132014 Overview: 08/17/2013 Pt has a history of anxiety depression since age 11. She has been off medication for 5 years.She was on either Paxil or Prozac from ages [age] for depression related to parents divorce and her uncle passing away. She denies any depression now. She was hospitalized at [facility] for overdose for 1 week at age 11. She denies any suicidal thoughts or tendencies since then. Discussed increased risks of depression during and and importance of reporting the development or worsening of symptoms should they occur.TKRN Nausea & vomiting 08/17/2013 01/15/2014 Overview: 08/17/2013 Patient is complaining of nausea in . Advised patient to call/come in if she is unable to keep any food or fluids down in a 24-hour period. Patient states that the vitamin B6 is working well to alleviate her symptoms. TKRN Supervision of other normal 10/21/2008 05/04/2009 COMPLICATIONS ANEMIA 03/02/2006 05/01/2006 Threatened , antepartum 09/17/2005 05/01/2006 Antiphospholipid antibody syndrome 09/05/2015 documented as of this encounter (statuses as of 09/04/2023) [facility] Diagnosis Sore throat- Primary Acute pharyngitis Viral illness Unspecified viral infection, in conditions classified elsewhere and of unspecified site Cough Post-viral cough syndrome Cough [facility] Diagnosis Encounter for gynecological examination without abnormal finding- Primary Routine gynecological examination Encounter for screening for malignant neoplasm of cervix Screening for malignant neoplasm of the cervix Special screening examination for human papillomavirus (HPV) [facility] Diagnosis Annual physical exam- Primary Routine general medical examination at a health care facility Need for influenza vaccination Need for prophylactic vaccination and inoculation against influenza Depression, unspecified depression type Anxiety Anxiety state, unspecified History of ITP Personal history of diseases of blood and blood-forming organs [facility] Diagnosis Encounter for gynecological examination (general) (routine) without abnormal findings- Primary Encounter for surveillance of contraceptive pills Surveillance of previously prescribed contraceptive pill [facility] Diagnosis Pharyngitis, unspecified etiology- Primary Viral illness Unspecified viral infection, in conditions classified elsewhere and of unspecified site [facility] Diagnosis Viral URI with cough- Primary Acute upper respiratory infections of unspecified site Fever, unspecified fever cause [facility]* Diagnosis Annual physical exam- Primary Routine general medical examination at a health care facility Other fatigue Cold intolerance Other general symptoms Weight gain Abnormal weight gain History of iron deficiency Personal history of diseases of blood and blood-forming organs Vitamin D deficiency Unspecified vitamin D deficiency Encounter for immunization Need for other specified prophylactic vaccination against single bacterial disease [facility]* Diagnosis Cough [facility] in this [facility]* Diagnosis Right wrist pain Pain in joint, forearm [facility]* Diagnosis Encounter for gynecological examination (general) (routine) without abnormal findings- Primary Encounter for screening mammogram for breast cancer Abnormal uterine bleeding (AUB) Encounter for screening for malignant neoplasm of cervix Screening for malignant neoplasm of the cervix Special screening examination for human papillomavirus (HPV) documented in this encounter [facility] note* Diagnosis Encounter for gynecological examination (general) (routine) without abnormal findings Encounter for screening mammogram for breast cancer documented in this [facility]* Diagnosis Bacterial sinusitis- Primary Unspecified sinusitis (chronic) documented in this encounter [facility]* Diagnosis Abnormal uterine bleeding (AUB)- Primary documented in this encounter [facility] note* Diagnosis Menorrhagia with irregular cycle- Primary Excessive or frequent menstruation Dysmenorrhea documented in this encounter [facility] for referral (narrative)* Diagnostic Procedure Only (Routine) - Closed Specialty Diagnoses / Procedures Referred By Bg tenorio Referred To Contact [facility] Diagnoses Right wrist pain Procedures XR WRIST GENERAL 3V PA/LAT/OBL RT X-RAY WRIST COMPLET MIN 3 VIEWS Clementina Martinez APRN.CNP [address] [place] [address] [place] [id number] Referral ID Status Reason Start Date Expiration Date V isits Requested Visits Authorized [id number] Closed Auto-Generate d Referral 04/11/2021 05/11/2022 1 1 [facility] for visit Narrative* Diagnostic Procedure Only (Routine) - Closed Specialty Diagnoses / Procedures Referred By Contac t Referred To Contact [facility] IMAG[facility] Diagnoses Right wrist pain Procedures XR WRIST GENERAL 3V PA/LAT/OBL RT X-RAY WRIST COMPLET MIN 3 VIEWS Clementina Martinez, BEHAVIORAL SCIENCE CHAIR.RAW [employer] OPERATOR [address] [place] [address] [place] [id number] Referral ID Status Reason Start Date Expiration Date V isits Requested Visits Authorized [id number] Closed Auto-Generate d Referral 04/11/2021 05/11/2022 1 1 [facility] for visit Narrative* Diagnostic Procedure Only (Routine) - Closed Specialty Diagnoses / Procedures Referred By Bg t Referred To Contact [facility] Diagnoses Encounter for gynecological examination (general) (routine) without abnormal findings Encounter for screening mammogram for breast cancer Procedures EMMANUEL SCREENING W ARGELIA SCREENING DIGITAL BREAST TOMOSYNTHESIS BI SCREENING MAMMOGRAPHY BI 2-VIEW BREAST INC CAD Bacilio Miranda MD [address] [place] [phone] Phone: tel: fax: [facility] [address] [place] [address] Referral ID Status Reason Start Date Expiration Date V isits Requested Visits Authorized [id number] Closed Auto-Generate d Referral 09/10/2024 10/10/2025 1 1 [facility] for visit Narrative* Outpatient Procedure (Routine) - Closed Specialty Diagnoses / Procedures Referred By Bg t Referred To Contact [facility] Diagnoses Abnormal uterine bleeding (AUB) Procedures ENDOMETRIAL BIOPSY ENDOMETRIAL BX W/WO ENDOCERVIX BX W/O DILAT SPX Bacilio Miranda MD [address] [place] [phone] Phone: tel: fax: [facility] [address] [place] [id number] Referral ID Status Reason Start Date Expiration Date V isits Requested Visits Authorized [id number] Closed Auto-Generate d Referral 10/22/2024 06/23/2025 1 1 [facility] Summary Purpose Family History No Family History Records FoundNo Family History Records FoundNo Family History Records Found Advance Directives No Advanced Directives Records FoundNo Advanced Directives Records FoundNo Advanced Directives Records Found Health Concerns Infection Onset Date Last Indicated Resolved Time COVID-19 Rule-Out 09/16/2021 09/16/2021 Additional Source Comments INFORMATION SOURCE (unrecogn ized section and content) DATE CREATED AUTHOR 12/12/[address] [facility] DATE CREATED AUTHOR AUTHOR'S ORGANIZ ATION 12/26/2024 [facility] DATE CREATED AUTHOR AUTHOR'S ORGANIZ ATION 12/26/2024 [facility] Source Comments (unrecognize d section and content) In the event this informatio n is protected by the Federal Confidentiality of Alcohol and Drug Abuse Patient Records regulations: The Federal rules restrict any use of the information to criminally investigate or prosecute any alcohol or drug abuse patient.[facility] the event this information is protected by the Federal Confidentiality of Alcohol and Drug Abuse Patient Records regulations: The Federal rules restrict any use of the information to criminally investigate or prosecute any alcohol or drug abuse patient.[facility] the event this information is protected by the Federal Confidentiality of Alcohol and Drug Abuse Patient Records regulations: The Federal rules restrict any use of the information to criminally investigate or prosecute any alcohol or drug abuse patient.[facility] the event this information is protected by the Federal Confidentiality of Alcohol and Drug Abuse Patient Records regulations: The Federal rules restrict any use of the information to criminally investigate or prosecute any alcohol or drug abuse patient.[facility] the event this information is protected by the Federal Confidentiality of Alcohol and Drug Abuse Patient Records regulations: The Federal rules restrict any use of the information to criminally investigate or prosecute any alcohol or drug abuse patient.[facility] the event this information is protected by the Federal Confidentiality of Alcohol and Drug Abuse Patient Records regulations: The Federal rules restrict any use of the information to criminally investigate or prosecute any alcohol or drug abuse patient.[facility] Center[facility] the event this information is protected by the Federal Confidentiality of Alcohol and Drug Abuse Patient Records regulations: The Federal rules restrict any use of the information to criminally investigate or prosecute any alcohol or drug abuse patient.[facility] Center[facility] the event this information is protected by the Federal Confidentiality of Alcohol and Drug Abuse Patient Records regulations: The Federal rules restrict any use of the information to criminally investigate or prosecute any alcohol or drug abuse patient.[facility] Center[facility] the event this information is protected by the Federal Confidentiality of Alcohol and Drug Abuse Patient Records regulations: The Federal rules restrict any use of the information to criminally investigate or prosecute any alcohol or drug abuse patient.[facility] Center[facility] the event this information is protected by the Federal Confidentiality of Alcohol and Drug Abuse Patient Records regulations: The Federal rules restrict any use of the information to criminally investigate or prosecute any alcohol or drug abuse patient.[facility] Center[facility] the event this information is protected by the Federal Confidentiality of Alcohol and Drug Abuse Patient Records regulations: The Federal rules restrict any use of the information to criminally investigate or prosecute any alcohol or drug abuse patient.[facility] Center[facility] the event this information is protected by the Federal Confidentiality of Alcohol and Drug Abuse Patient Records regulations: The Federal rules restrict any use of the information to criminally investigate or prosecute any alcohol or drug abuse patient.[facility] Center[facility] the event this information is protected by the Federal Confidentiality of Alcohol and Drug Abuse Patient Records regulations: The Federal rules restrict any use of the information to criminally investigate or prosecute any alcohol or drug abuse patient.[facility] Center[facility] the event this information is protected by the Federal Confidentiality of Alcohol and Drug Abuse Patient Records regulations: The Federal rules restrict any use of the information to criminally investigate or prosecute any alcohol or drug abuse patient.[facility] CenterIn the event this information is protected by the Federal Confidentiality of Alcohol and Drug Abuse Patient Records regulations: The Federal rules restrict any use of the information to criminally investigate or prosecute any alcohol or drug abuse patient.[facility] CenterIn the event this information is protected by the Federal Confidentiality of Alcohol and Drug Abuse Patient Records regulations: The Federal rules restrict any use of the information to criminally investigate or prosecute any alcohol or drug abuse patient.[facility] CenterIn the event this information is protected by the Federal Confidentiality of Alcohol and Drug Abuse Patient Records regulations: The Federal rules restrict any use of the information to criminally investigate or prosecute any alcohol or drug abuse patient.[facility] CenterIn the event this information is protected by the Federal Confidentiality of Alcohol and Drug Abuse Patient Records regulations: The Federal rules restrict any use of the information to criminally investigate or prosecute any alcohol or drug abuse patient.[facility] CenterIn the event this information is protected by the Federal Confidentiality of Alcohol and Drug Abuse Patient Records regulations: The Federal rules restrict any use of the information to criminally investigate or prosecute any alcohol or drug abuse patient.[facility] CenterIn the event this information is protected by the Federal Confidentiality of Alcohol and Drug Abuse Patient Records regulations: The Federal rules restrict any use of the information to criminally investigate or prosecute any alcohol or drug abuse patient.[facility] CenterIn the event this information is protected by the Federal Confidentiality of Alcohol and Drug Abuse Patient Records regulations: The Federal rules restrict any use of the information to criminally investigate or prosecute any alcohol or drug abuse patient.[facility] Reason for Visit (unrecogniz ed section and content) Reason Comments Cough x2 weeks, fever neela ed SOB, chest pain Reason Onset Date Comments Refill Request 12/23/2021 Reason Onset Date Comments Yearly Exam 02/08/2022 Reason Onset Date Comments Yearly Exam Immunizations 04/04/2022 Flu vaccination Reason Onset Date Comments Refill Request 04/26/2022 Reason Onset Date Comments Refill Request 09/18/2022 Reason Comments Yearly Exam Reason Comments Sore Throat Fever x 2 days Reason Comments Same Day Appointment ill- fever, cough, drng- green to clear, sore throat from drng x 6 days Reason Onset Date Comments Physical Annual Physical Immunizations 03/12/2024 Flu vaccination Reason Onset Date Comments Refill Request 04/08/2024 Reason Onset Date Comments Refill Request 07/09/2024 Reason Comments Yearly Exam Reason Comments Sinus Problem sinus pressure, drai nage, fever x 5 days Reason Comments Pre-Op Visit Care Teams (unrecognized sec tion and content) Global Technical Writer Relationship Specialty Start Date End Date Sarmad Siddiqui MD [address] [place] [place] [address] PCP - General Internal Medicine 01/17/21 Global Technical Writer Relationship Specialty Start Date End Date Sarmad Siddiqui MD [address] [place] [address] PCP - General Internal Medicine 01/17/21 Global Technical Writer Relationship Specialty Start Date End Date Sarmad Siddiqui MD [address] [place] [address] PCP - General Internal Medicine 01/17/21 Global Technical Writer Relationship Specialty Start Date End Date Sarmad Siddiqui MD [address] [place] [address] PCP - General Internal Medicine 01/17/21 Global Technical Writer Relationship Specialty Start Date End Date Sarmad Siddiqui MD [address] [place] [address] PCP - General Internal Medicine 01/17/21 Global Technical Writer Relationship Specialty Start Date End Date Sarmad Siddiqui MD [address] [place] [address] PCP - General Internal Medicine 01/17/21 Global Technical Writer Relationship Specialty Start Date End Date Sarmad Siddiqui MD [address] [place] [address] PCP - General Internal Medicine 01/17/21 Global Technical Writer Relationship Specialty Start Date End Date Sarmad Siddiqui MD [address] [place] [address] PCP - General Internal Medicine 01/17/21 Global Technical Writer Relationship Specialty Start Date End Date Sarmad Siddiqui MD [address] [place] [address] PCP - General Internal Medicine 01/17/21 Global Technical Writer Relationship Specialty Start Date End Date Sarmad Siddiqui MD [address] [place] [address] PCP - General Internal Medicine 01/17/21 Global Technical Writer Relationship Specialty Start Date End Date Sarmad Siddiqui MD [address] [place] [address] PCP - General Internal Medicine 01/17/21 Global Technical Writer Relationship Specialty Start Date End Date Sarmad Siddiqui MD [address] [place] [address] PCP - General Internal Medicine 01/17/21 Global Technical Writer Relationship Specialty Start Date End Date Sarmad Siddiqui MD [address] [place] [address] PCP - General Internal Medicine 01/17/21 Naomi Edwards PA-C [address] [place] [address] Sales Mgr Family Medicine 05/31/24 Angela Chau APRN.CNP [address] [place] [address] Sales Mgr Internal Medicine 05/31/24 Zoey Orellana PA-C [address] [place] [address] Sales Mgr Family Medicine 05/31/24 Global Technical Writer Relationship Specialty Start Date End Date Sarmad Siddiqui MD [address] [place] [address] PCP - General Internal Medicine 01/17/21 Naomi Edwards PA-C [address] [place] [address] Sales Mgr Family Medicine 05/31/24 Angela Chau APRN.RAW FINISH MILL OPERATOR [address] [place] [address] Sales Mgr Internal Medicine 05/31/24 Zoey Orellana PA-C [address] [place] [address] Sales Mgr Family Medicine 05/31/24 Global Technical Writer Relationship Specialty Start Date End Date Sarmad Siddiqui MD [address] [place] [address] PCP - General Internal Medicine 01/17/21 Angela Chau, ANUSHA.RAW FINISH MILL OPERATOR [address] [place] [address] Sales Mgr Internal Medicine 05/31/24 Global Technical Writer Relationship Specialty Start Date End Date Sarmad Siddiqui MD [address] [place] [address] PCP - General Internal Medicine 01/17/21 Angela Chau BEHAVIORAL SCIENCE CHAIR.RAW FINISH MILL OPERATOR [address] [place] [address] Sales Mgr Internal Medicine 05/31/24 Global Technical Writer Relationship Specialty Start Date End Date Sarmad Siddiqui MD [address] [facility] [place] [address] PCP - General Internal Medicine 01/17/21 Angela Chau APRN.RAW FINISH MILL OPERATOR [address] [facility] [place] [address] Sales Mgr Internal Medicine 05/31/24 Global Technical Writer Relationship Specialty Start Date End Date Sarmad Siddiqui MD [address] [facility] [place] [address] PCP - General Internal Medicine 01/17/21 Angela Chau APRN.RAW FINISH MILL OPERATOR [address] [place] [address] Sales Mgr Internal Medicine 05/31/24 Global Technical Writer Relationship Specialty Start Date End Date Sarmad Siddiqui MD [address] [place] [place] [address] PCP - General Internal Medicine 01/17/21 Angela Chau APRN.RAW FINISH MILL OPERATOR [address] [place] [address] Sales Mgr Internal Medicine 05/31/24 Global Technical Writer Relationship Specialty Start Date End Date Sarmad Siddiqui MD [address] [place] [address] PCP - General Internal Medicine 01/17/21 Angela Chau APRN.RAW FINISH MILL OPERATOR [address] [place] [address] Sales Mgr Internal Medicine 05/31/24 FOR RECORDS PERTAINING TO PATIENTS WHO ARE OR HAVE BEEN ENROLLED IN A CHEMICAL DEPENDENCY/SUBSTANCEABUSE PROGRAM, SOME INFORMATION MAY BE OMITTED. This clinical summary was aggregated from multiple sources. Caution should be exercised in using it in the provision of clinical care. This summary normalizes information from multiple sources, and as a consequence, information in this document may materially change the coding, format and clinical context of patient data. In addition, data may be omitted in some cases. CLINICAL DECISIONS SHOULD BE BASED ON THE PRIMARY CLINICAL RECORDS. [facility] provides no warranty or guarantee of the accuracy or completeness of information in this document.
[2025-01-01] MEDS: Lactated Ringers 1,000 ML 15 ML IV (06:33)
[2025-01-01] MEDS: Ketorolac 30 MG/ML Syringe IV (06:35)
[2025-01-01 06:41] LABS: Hematocrit 38.1 % (37-47); Hemoglobin 12.4 g/dL (12.0-15.0); Mean Corp Hgb Conc 32.5 g/dL (32-36); Mean Corpuscular Volume 82.8 fL (81-99); Mean Platelet Vol. 12.3 fl (6.2-12.0); Platelet Count 138 K/mm3 (150-450); RBC Distribution Width CV 12.8 % (11.6-14.6); RBC Distribution Width SD 38.5 fl (35.1-43.9); Red Blood Count 4.60 M/mm3 (4.2-5.4); White Blood Count 4.1 K/mm3 (4.4-11.0)
--- NOTE | 2025-01-01 06:45 | PRE.ANES_ITS ---
ASA Classification* ASA Classification ASA Classification: 2 Assessment & Plan Anesthesia* Anesthesia Assessment Anesthesia Assessment: Discussed sedation and/or anesthesia options, risks, benefits, and alternatives with patient/parents/legal guardian/POA. Questions invited. The patient/parents/legal guardian/POA seems to understand and agrees to proceed with anesthesia plan. Reviewed the physical assessment, medical history, allergy history and patient home medications list prior to surgery/procedure/anesthetic and documented any changes. Performed airway and anesthesia risk assessments. Anesthesia Type Anesthesia Type: MAC Anesthesia Focused Assessment* Temperature: 97.7 F Pulse Rate: 71 Blood Pressure: 125/80 Respiratory Rate: 16 Pulse Ox: 99 Airway Assessment Mouth opens: >3 cm Mallampati Score: II Labs Anesthesia Preop lab: CBC WBC 4.1 K/mm3 (4.4-11.0) L 01/01/25 06:30 01/01/25 RBC 4.60 M/mm3 (4.2-5.4) 01/01/25 06:30 01/01/25 Hgb 12.4 g/dL (12.0-15.0) 01/01/25 06:30 01/01/25 Hct 38.1 % (37-47) 01/01/25 06:30 01/01/25 Plt Count 138 K/mm3 (150-450) L 01/01/25 06:30 01/01/25 CHEMISTRY COAG PT 13.0 SECONDS (11.9-14.4) 11/04/13 14:10 Urine Test Negative Negative 03/22/16 08:30 03/22/16 Pre-Assessment Diagnosis/Proposed Procedure Planned Operative Procedure(s): hysteroscopy, braden Anesthesia History Anesthesia History - implementation advisor: Anesthesia History - implementation advisor Hx Hospitalization No 12/24/24 08:57 Any Problems With Anesthesia No 12/24/24 08:57 Cholinesterase deficiency No 12/24/24 08:57 You/Your Family Experience No 12/24/24 08:57 fever (hyperthermia) with Relationship Recent Exposure to Contagious No 01/01/25 06:39 Disease Does patient have nerve No 12/24/24 08:57 stimulator Patient instructed to have device shut off --Does patient have Pacemaker No 01/01/25 06:41 or ICD? When Was Last Pacemaker Check QUESTION #4 FULL TEXT: You/Your Family Experience fever (hyperthermia) with Anesthesia Last Oral Intake Last Oral intake: Last Oral Intake NPO since 00:00 01/01/25 06:41 Meds taken in AM with sips of No 01/01/25 06:41 water? Meds patient instructed to take am of surgery PONV PONV - implementation advisor: PONV - implementation advisor Female Yes 12/24/24 08:57 HX of Motion Sickness No 12/24/24 08:57 HX of N/V After Surgery No 12/24/24 08:57 Non-Smoker Yes 12/24/24 08:57 Duration of Surgery greater No 12/24/24 08:57 than 60 minutes Number of Risk Factors 2 12/24/24 08:57 PONV Score Moderate Risk 12/24/24 08:57 Height & Weight Height & Weight: Anesthesia: Height & Weight Height 5 ft 7 in 01/01/25 06:41 Weight: 68 kg 01/01/25 06:41 Body Mass Index (BMI) 23.4 01/01/25 06:41 Respiratory Assessment Respiratory Assessment - implementation advisor: Respiratory Tract Infection Hx - implementation advisor Hx Respiratory Tract Infection No 12/24/24 08:57 STOP Sleep Apnea STOP Sleep Apnea - implementation advisor: STOP Sleep Apnea - implementation advisor Hx Hypertension No 12/24/24 08:57 Hx Sleep Apnea No 12/24/24 08:57 CPAP BIPAP Do you snore loudly (louder No 12/24/24 08:57 than talking or can be heard Do you often feel tired/ No 12/24/24 08:57 fatigued/ sleepy during daytime? Has anyone observed you stop No 12/24/24 08:57 breathing during sleep? STOP Results Negative 12/24/24 08:57 QUESTION #5 FULL TEXT : Do you snore loudly (louder than talking or can be heard through closed doors)? 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 Specify any problems Hx of Preganancy in last 3 No 12/24/24 08:57 Months Nurse Filling Out Transfusion JZOLLINGE 12/24/24 08:57 & Questions: Date: 12/24/24 12/24/24 08:57 Time: 08:58 12/24/24 08:57 Patient unable to answer at this time (ie. confused, unrespo /Reproduction History /Reproductive History - implementation advisor: /Reproductive Hx- implementation advisor Hx Now No 12/24/24 08:57 Gestational Age (in weeks): EDC: Hx Hx Para Hx Section SAB No 12/24/24 08:57 Active Medications Active Medications: Current Medications Generic Name Dose Route Start Last Admin Trade Name Freq PRN Reason Stop Dose Admin Acetaminophen 1,000 mg 01/01/25 07:30 01/01/25 06:34 Acetaminophen 500 Mg Tablet PO 01/01/25 07:31 1,000 mg PREOP ONE Administration Lactated Ringer's 1,000 mls @ 15 mls/hr 01/01/25 06:15 01/01/25 06:33 IV 15 mls/hr .Q48H NINA Administration Ketorolac Tromethamine 30 mg 01/01/25 07:30 01/01/25 06:35 Ketorolac 30 Mg/Ml Syringe IV 01/01/25 07:31 30 mg PREOP ONE Administration PFSH Medical History Wears glasses Depression Anxiety Low iron History of ITP Migraine headache Heartburn Former smoker Home Medications ?Medication ?Instructions ?Recorded ?Last Taken ?Type Ibuprofen [Motrin] 800 mg PO TID PRN PRN Pain # 30 tabs 03/22/16 Unknown Rx multivitamin (Daily Value tablet) 1 tab PO DAILY 12/2412/30/24 History norethindrone 1 mg-ethinyl 1 tab PO DAILY 12/24/2404/17 History estradiol 20 mcg (24)-iron 75 mg (4) tablet (Nick 24 Fe) Allergy/AdvReac Type Severity Reaction Status Date / Time No Known Allergies Allergy Verified 12/24/24 08:50 Surgical History Hx of section Hx of tubal ligation Social History Smoking Status: Former smoker Review of Systems (Anesthesia) ROS Narrative System reviewed and no additional complaints, except as documented.
[2025-01-01] MEDS: Lidocaine 1% /Epi 1:100 (50ml) 50 ML VIAL (08:00)
--- NOTE | 2025-01-01 08:05 | PCM.DC ---
Discharge Instructions Diet Discharge Diet: No restrictions DC O2, CPAP, BIPAP needs Home O2 Discharge instructions: No Dressing / Incision Return to work on:: 01/03/25 May shower in (days): 1 May resume sexual activity in: 2 weeks Lifting Restrictions: none Dressing / Incision Call your doctor if your incision/area has: Sudden Increased Bleeding and Foul Smelling Discharge Call your doctor if you observe: Fever of 101 or Higher and Using more than 1 pad per hour (for 2 hrs in a row) Follow Up Care Please Follow Up With: Marycruz Wild MD When: 2-4 weeks or as needed. Call [phone] or send a [employer] message to make an appointment or with any concerns. Test Results: Test results from this visit will be discussed in further detail at your follow-up appointment, if applicable. Discharge Plan Admission Primary Reason for Your Visit: Hysteroscopy Attending Provider: Marycruz Wild Primary Care Provider: Tameka Medina Instructions Print Language: Vietnamese Discharge Orders/Prescriptions Prescriptions: No Action Ibuprofen [Motrin] 800 MG tablet 800 mg PO TID PRN PRN (Reason: Pain) Qty: 30 1RF Nick 24 Fe 1 mg-20 mcg (24)/75 mg (4) tablet 1 tab PO DAILY multivitamin [Daily Value] Tablet 1 tab PO DAILY Other Ambulatory Orders: ,Urine (Routine) Timeframe: 20250101 Facility: [facility] - Location: Laboratory Ordered By: Dr. Marycruz Wild Referrals / Follow Up: Tameka Medina MD [Primary Care Provider] - Disposition Disposition (needs filled in before D/C Order can be placed): Home, Self Care
--- NOTE | 2025-01-01 08:06 | OP.PCM_ITS ---
Problems Associated Problem List Diagnoses (1) Dysmenorrhea: (2) Menorrhagia: Operative Report (Standard) Operative Information Date of Procedure: 01/01/25 Pre-Operative Diagnosis: menorrhagia, dysmenorrhea Post-Operative Diagnosis: same Surgery/Procedure Performed: Hysteroscopy telephonic nurse case manager: No Type of Anesthesia: MAC/Supplemental/Local RN Documented Start/Stop Times: Operation Date: 01/01/25 07:30 Case Time Into Pre-Op 01/01/25 06:04 Out of Pre-Op 01/01/25 07:31 Anesthesia Start 01/01/25 07:35 Into Room 01/01/25 07:35 Procedure Start 01/01/25 07:50 Procedure Start Time: 07:50 Procedure Stop Time: 08:04 Select all DRAINS/GRAFTS/IMPLANTS that apply: None Estimated Blood Loss: 10 Fluids Replaced: 500 LR Specimen collected: No Description of surgery: The patient was taken to the OR where she was prepped and draped in dorsal lithotomy position. The weighted speculum was placed in the vagina and the anterior lip of the cervix was grasped with a single-tooth tenaculum. A paracervical block was administered with [1% lidocaine with 1-100,000 epinephrine solution]. The cervix was dilated serially with Hegar dilators. The [5mm] hysteroscope was placed into the uterine cavity and the above findings were noted. Bilateral tubal ostia [were] identified. The hysteroscope was removed. The uterus sounded to 8 cm and the cervix to 3 cm. The Parisa was placed to 5 cm. I placed it into the endometrial cavity and when it was deployed it open immediately and the CO2 seal never sealed. The device was removed. The diagnostic hysteroscope was replaced and uterine perforation at the right side of the fundus was noted. There is no active b leeding. The procedure was terminated. All sponge and needle counts were correct. Vaginal sweep was performed by me. The patient was awakened and taken to the recovery room in stable condition. Hysteroscopic fluid deficit is 200 cc of normal saline. Surgical Findings: normal cervix, vagina and endometrium Complications Complications: No Admit VTE Documentation VTE Present on Admission: No VTE Mechan Device Prophylaxis: SCD's
--- NOTE | 2025-01-01 08:56 | PCM.POST.ANE ---
Anesthesia: Postop Eval I Current Vital Signs Temperature: 97.2 F Pulse Rate: 75 Blood Pressure: 123/78 Respiratory Rate: 16 Pulse Ox: 100 Oxygen Delivery Method: Room Air Assessment Airway patent: Yes Spontaneous unlabored respirations: Yes Mental status: Awake and Calm nausea: No Vomiting: No Anesthesia Complication: No Fluid Hydration Crystalloid volume administer (ml): 500 Total IV fluid infused: 500 Progress Note Anesthesia document: Postop Eval 1 completed: Yes
[2025-01-01 10:11] LABS: Hematocrit 35.9 % (37-47); Hemoglobin 11.5 g/dL (12.0-15.0); Mean Corp Hgb Conc 32.0 g/dL (32-36); Mean Corpuscular Volume 84.9 fL (81-99); Mean Platelet Vol. 12.0 fl (6.2-12.0); Platelet Count 121 K/mm3 (150-450); RBC Distribution Width CV 12.8 % (11.6-14.6); RBC Distribution Width SD 38.7 fl (35.1-43.9); Red Blood Count 4.23 M/mm3 (4.2-5.4); White Blood Count 4.1 K/mm3 (4.4-11.0)
--- NOTE | 2025-01-01 11:44 | POSTOPAN2_ITS ---
Anesthesia Postop Eval I Sum Postop Eval Completion status Anesthesia document: Postop Eval 1 completed: Yes Anesthesia Postop Eval I Summary Anesthesia Postop Eval I Summary: Anesthesia Postop Eval I: Assessment Summary Airway patent Yes 01/01/25 08:57 FINANCIAL RESERVE [email or web address] Spontaneous unlabored Yes 01/01/25 08:57 FINANCIAL RESERVE [email or web address].[email or web address] respirations Mental status Awake,Calm 01/01/25 08:57 FINANCIAL RESERVE CLERK.[email or web address] nausea No 01/01/25 08:57 FINANCIAL RESERVE CLERK.[email or web address] Vomiting No 01/01/25 08:57 FINANCIAL RESERVE CLERK.[email or web address] Anesthesia Postop Eval I: Fluid Summary Crystalloid volume administer 500 01/01/25 08:57 FINANCIAL RESERVE CLERK.[email or web address] (ml) Colloids volume administered ( ml) Blood Product volume administered (ml) Total IV fluid infused 500 01/01/25 08:57 FINANCIAL RESERVE CLERK.[email or web address] Anesthesia Postop Eval I: Summary Notes Anesthesia Complication No 01/01/25 08:57 FINANCIAL RESERVE [email or web address].[email or web address] Anesthesia Complication Comment: Post-operative progress note Anesthesia: Postop Eval II Evaluation Mental status: Awake Pain Level: 0 nausea: No Vomiting: No
--- NOTE | 2025-01-01 11:44 | PCM.POSTANE2 ---
Anesthesia Postop Eval I Sum Postop Eval Completion status Anesthesia document: Postop Eval 1 completed: Yes Anesthesia Postop Eval I Summary Anesthesia Postop Eval I Summary: Anesthesia Postop Eval I: Assessment Summary Airway patent Yes 01/01/25 08:57 GROUND SOURCE HEAT PUMP [email or web address] Spontaneous unlabored Yes 01/01/25 08:57 GROUND SOURCE HEAT PUMP [email or web address].[email or web address] respirations Mental status Awake,Calm 01/01/25 08:57 GROUND SOURCE HEAT PUMP TECHNICIAN.JBLOU nausea No 01/01/25 08:57 GROUND SOURCE HEAT PUMP [email or web address].[email or web address] Vomiting No 01/01/25 08:57 GROUND SOURCE HEAT PUMP [email or web address].[email or web address] Anesthesia Postop Eval I: Fluid Summary Crystalloid volume administer 500 01/01/25 08:57 GROUND SOURCE HEAT PUMP [email or web address].JBLOU (ml) Colloids volume administered ( ml) Blood Product volume administered (ml) Total IV fluid infused 500 01/01/25 08:57 GROUND SOURCE HEAT PUMP [email or web address].[email or web address] Anesthesia Postop Eval I: Summary Notes Anesthesia Complication No 01/01/25 08:57 GROUND SOURCE HEAT PUMP [email or web address].[email or web address] Anesthesia Complication Comment: Post-operative progress note Anesthesia: Postop Eval II Evaluation Mental status: Awake Pain Level: 0 nausea: No Vomiting: No
== END 2025-01-01 10:30 | disposition home or self-care (01) ==
LOC: SDC 05:56 → AC 05:57
PROVIDERS: PCP Internal Medicine; Referring Provider Obstetrics & Gynecology; Visit Provider Obstetrics & Gynecology
PROC: 0U5B8ZZ Destruction of Endometrium, Via Natural or Artificial Opening Endoscopic (ICD-10-PCS; CPT 58558; principal; 2025-01-01 07:15)
DX: N92.0 Excessive and frequent menstruation with regular cycle (principal); N94.6 Dysmenorrhea, unspecified; Z87.891 Personal history of nicotine dependence
CPT/HCPCS: 58555; 00952; 85027; J2405